=== PATIENT | male | born 1980 | race Caucasian/White ===

== ENCOUNTER 2024-05-03 00:59 | Emergency (ER) | payer MEDICAID, SELFPAY ==
[2024-05-03 01:18] VITALS: BP 133/77; PULSE 83; RESP 18; TEMP 36.9; O2SAT 99; BMI 23.8
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
[2024-05-03] MEDS: ACETAMINOPHEN 500 MG TABLET 1000 MG PO (01:31)
[2024-05-03 01:36] LABS: Collection Type, Urine Clean Catch
[2024-05-03 01:45] LABS: Bilirubin,Urine Negative (Negative); Blood,Urine Negative (Negative); Clarity,Urine Clear (Clear/Hazy); Color,Urine Lt-Yellow (Lt Yel-Yel); Glucose, Urine Negative (Negative); Ketones,Urine Negative (Negative); Leukocyte Esterase,Urine Negative (Negative); Nitrite,Urine Negative (Negative); PH,Urine 5.5 (5.0-7.0); Protein,Urine Negative (Neg - Trace); RBC,Urine 1 /hpf (0-3); Squamous Epithelial Cell,Urine < 1 /hpf (0-5); WBC,Urine 1 /hpf (0-5)
== END 2024-05-03 02:11 | disposition home or self-care (01) ==
PROVIDERS: Physician Assistant; Emergency Provider Emergency Medicine; PCP Internal Medicine
DX: R10.9 Unspecified abdominal pain (principal)
CPT/HCPCS: 81001; 99283; A9270

== ENCOUNTER 2024-05-06 19:32 | Emergency (ER) | payer MEDICAID, SELFPAY ==
[2024-05-06 19:32] VITALS: BP 141/88; PULSE 86; RESP 20; TEMP 36.9; O2SAT 97; BMI 21.6
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
--- NOTE | 2024-05-06 21:48 | PC.NURSE ---
LEFT WITHOUT INSTRUCTION.
== END 2024-05-06 21:48 | disposition home or self-care (01) ==
PROVIDERS: Emergency Provider Emergency Medicine; PCP Internal Medicine
DX: S00.83XA Contusion of other part of head, initial encounter (principal); Y04.0XXA Assault by unarmed brawl or fight, initial encounter
CPT/HCPCS: 70100; 99283

== ENCOUNTER 2024-05-07 07:18 | Emergency (ER) | payer MEDICAID, SELFPAY ==
[2024-05-07 07:21] VITALS: BMI 22.4
[2024-05-07 07:29] VITALS: BP 135/79; PULSE 75; RESP 18; TEMP 36.4; O2SAT 98; BMI 20.6
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
== END 2024-05-07 07:51 | disposition home or self-care (01) ==
LOC: SERX 07:57
PROVIDERS: Emergency Provider Emergency Medicine; PCP Internal Medicine
DX: S00.83XA Contusion of other part of head, initial encounter (principal); Z59.00 Homelessness unspecified; Y09 Assault by unspecified means
CPT/HCPCS: 99281

== ENCOUNTER 2024-05-09 15:23 | Emergency (ER) | payer MEDICAID, SELFPAY ==
[2024-05-09 15:29] VITALS: BP 145/89; PULSE 92; RESP 18; TEMP 37.2; O2SAT 96; BMI 22.4
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
[2024-05-09] MEDS: ACETAMINOPHEN 500 MG TABLET 1000 MG PO (16:07)
== END 2024-05-09 16:30 | disposition home or self-care (01) ==
PROVIDERS: Emergency Provider Emergency Medicine
DX: S09.90XA Unspecified injury of head, initial encounter (principal); Y09 Assault by unspecified means; Z59.00 Homelessness unspecified
CPT/HCPCS: 99282; A9270

== ENCOUNTER 2024-05-13 07:17 | Emergency (ER) | payer MEDICAID, SELFPAY ==
[2024-05-13 07:17] VITALS: BMI 23.3
[2024-05-13 07:30] VITALS: BP 151/87; PULSE 75; RESP 18; TEMP 36.5; O2SAT 100
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
[2024-05-13] MEDS: ACETAMINOPHEN 500 MG TABLET 1000 MG PO (07:51)
== END 2024-05-13 07:54 | disposition home or self-care (01) ==
LOC: SERX 07:49
PROVIDERS: Emergency Provider Emergency Medicine; PCP Internal Medicine
DX: K08.89 Other specified disorders of teeth and supporting structures (principal); Z59.00 Homelessness unspecified
CPT/HCPCS: 99282; A9270

== ENCOUNTER 2024-05-17 18:08 | Emergency (ER) | payer MEDICAID, SELFPAY ==
[2024-05-17 18:09] VITALS: BMI 25.0
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
[2024-05-17 18:47] VITALS: BP 129/74; PULSE 79; RESP 18; TEMP 37.1; O2SAT 98
[2024-05-17] MEDS: ACETAMINOPHEN 500 MG TABLET 1000 MG PO (19:46)
== END 2024-05-17 19:49 | disposition home or self-care (01) ==
PROVIDERS: Emergency Provider Emergency Medicine
DX: S09.90XA Unspecified injury of head, initial encounter (principal); W22.09XA Striking against other stationary object, initial encounter; Z59.00 Homelessness unspecified
CPT/HCPCS: 99282; A9270

== ENCOUNTER 2024-05-20 17:08 | Emergency (ER) | payer MEDICAID, SELFPAY ==
[2024-05-20 17:33] VITALS: BP 149/88; PULSE 97; RESP 20; TEMP 36.9; O2SAT 96
--- NOTE | 2024-05-20 17:35 | PD.EDDENTL ---
ED Dental RME/HPI General Chief complaint: Dental/Oral/Throat Stated complaint: JAW PAIN Time Seen by Provider: 05/20/24 17:24 Arrival date/time: 05/20/24 17:08 43-year-old male presents emergency department with complaints of left-sided jaw swelling and jaw pain patient reports recent injury patient has had imaging of his face since then patient reports being homeless Limitations: no limitations Related Data Home Medications ?Medication ?Instructions ?Recorded ?Confirmed quetiapine 50 mg tablet (Seroquel) 50 mg PO HS 10/23/19 06/20/22 divalproex 500 mg tablet,extended 2,000 mg PO DAILY 06/20/22 06/20/22 release 24 hr Previous Rx's ?Medication ?Instructions ?Recorded azithromycin 500 mg tablet See Rx Instructions PO .COMPLEX #6 08/11/22 tabs acetaminophen 500 mg capsule 1,000 mg (2 x 500 mg) PO Q8HR PRN 11/29/22 pain #30 caps meloxicam 7.5 mg tablet 7.5 mg PO QDAY #7 tabs 12/12/22 phenazopyridine 100 mg tablet 100 mg PO TID #6 tabs 12/12/22 (Pyridium) acetaminophen 325 mg tablet (Pain 325 mg PO QID PRN pain #14 tabs 12/08/23 Reliever (acetaminophen)) acetaminophen 500 mg tablet 1,000 mg (2 x 500 mg) PO Q6H PRN 05/03/24 (Tylenol Extra Strength) pain #30 tabs acetaminophen 325 mg capsule 650 mg (2 x 325 mg) PO QID PRN 05/17/24 fever or pain 7 days #30 caps amoxicillin 875 mg-potassium 1 tab PO BID 7 days #14 tabs 05/20/24 clavulanate 125 mg tablet Allergies Allergy/AdvReac Type Severity Reaction Status Date / Time naproxen Allergy Severe HIVES Verified 05/13/24 07:19 ibuprofen AdvReac Severe ULCER Verified 05/13/24 07:19 BLEEDS tramadol HCl AdvReac Severe UNABLE TO Verified 05/13/24 07:19 URINATE Review of Systems Review of Systems Systems Reviewed: All systems reviewed, normal except as documented Constitutional Constitutional: Reports system reviewed and no additional complaints, except as documented, Denies fever(s) and Denies headache(s) Eyes Eyes: Reports system reviewed and no additional complaints, except as documented and Denies blurry vision ENT Ears, Nose, Mouth, and Throat: Reports system reviewed and no additional complaints, except as documented, Reports facial pain, Denies headache(s), Denies nasal congestion and Denies nasal discharge Cardiovascular Cardiovascular: Reports system reviewed and no additional complaints, except as documented, Denies chest pain and Denies dyspnea Respiratory Respiratory: Reports system reviewed and no additional complaints, except as documented, Denies chest congestion, Denies cough and Denies dyspnea Gastrointestinal Gastrointestinal: Reports system reviewed and no additional complaints, except as documented and Denies abdominal pain Integumentary/Breasts Skin/Breast: Reports system reviewed and no additional complaints, except as documented and Denies rash Neurologic Neurologic: Reports system reviewed and no additional complaints, except as documented, Reports as per HPI and Denies headache(s) Past Medical History Past Medical History NEUROLOGIC: Negative Neurological Disorders CARDIAC: Negative Cardiac Disorders ED Exam General Limitations: Present no limitations General appearance: Present alert and in no apparent distress Head Head exam: Present atraumatic, normocephalic and normal inspection Eye Eye exam: Present normal appearance, PERRL and EOMI ENT ENT exam: Present mucous membranes moist and other (Left-sided jaw pain no difficulty swallowing or breathing) Neck Neck exam: Present normal inspection, full ROM and trachea midline Chest Chest inspection: Present normal inspection and symmetric chest wall rise Respiratory Respiratory exam: Present normal lung sounds bilaterally Cardiovascular Cardiovascular exam: Present regular rate, normal rhythm and normal heart sounds Abdominal Exam Abdominal exam: Present soft and normal bowel sounds Extremities Exam Extremities exam: Present normal inspection and full ROM Back Exam Back exam: Present normal inspection and full ROM Neurological Exam Neurological exam: Present alert, oriented X3 and CN II-XII intact Psychiatric Psychiatric exam: Present normal affect and normal mood Skin Skin exam: Present warm, dry, intact and normal color Course Quality Measures none Vital Signs Vital signs: Vital Signs Temperature 98.5 F 05/20/24 17:33 Pulse Rate 97 05/20/24 17:33 Respiratory Rate 20 05/20/24 17:33 Blood Pressure 149/88 H 05/20/24 17:33 Pulse Oximetry (%) 96 05/20/24 17:33 Oxygen Delivery Method Room Air 05/20/24 17:33 O2 saturation 96% room air within the limits Dental / Oral MDM Narrative MDM Narrative:: 43-year-old male presents emergency department with complaints of left-sided jaw swelling and jaw pain patient reports recent injury patient has had imaging of his face since then patient reports being homeless On exam patient does not appear ill or toxic in no acute distress Patient does have some gingival swelling on the left lower side with swelling of the jaw Patient with course of antibiotics and pain medication Patient discharged home in no distress to follow-up with primary care doctor in the next 24 to 48 hours and for any worsening symptoms to return to the ER immediately Patient data External records reviewed:: [facility] previous records Clinical information provided by:: patient Social determinants that could affect healthcare access:: housing Patient has the following chronic illnesses:: Housing How is presenting disease/condition affected by chronic disease/condition?: exacerbated by Evaluation data The following diagnostics were reviewed and interpreted by me:: other (specify) (N/A) Lab and/or radiology exams considered but not ordered:: Consider not ordered Interpretation Summary: N/A Medications / Prescriptions Medications or Prescriptions considered but not ordered:: Given Medication administrations:: Given Consultations Consultation(s) initiated? (list below): No Diagnosis Dental Differential Diagnosis: gingival abscess, dental caries, toothache and dental abscess Most likely diagnosis given after review of the tests above:: Dental abscess Admission Indicated Admission indicated?: not indicated Admission Request Was there a request for admission?: No Disposition Plan Disposition Plan: Discharge Discharge Attestation Discharge Attestation: The patient and all family members were given an opportunity to ask questions and understood the discharge instructions. Discharge instructions specifically effects, indications for sooner follow up or return to the emergency department, and the expected course of current diagnosis. Patient condition: Stable Discharge Plan Plan Patient Disposition: HOME (Self Care) Disposition Comment: Stable Prescriptions/Referrals Prescriptions/Med Rec: New amoxicillin-pot clavulanate 875-125 mg tablet 1 tab PO BID 7 Days Qty: 14 0RF No Action quetiapine [Seroquel] 50 mg Tablet 50 mg PO HS azithromycin 500 mg tablet See Rx Instructions .ROUTE .COMPLEX Qty: 6 0RF Rx Instructions: take 500 mg today (day 1), then 250 mg for 4 days (days 2-5) acetaminophen 500 mg capsule 1,000 mg PO Q8HR PRN (Reason: pain) Qty: 30 0RF phenazopyridine [Pyridium] 100 mg tablet 100 mg PO TID Qty: 6 0RF meloxicam 7.5 mg tablet 7.5 mg PO QDAY Qty: 7 0RF acetaminophen [Pain Reliever (acetaminophen)] 325 mg tablet 325 mg PO QID PRN (Reason: pain) Qty: 14 0RF acetaminophen 325 mg capsule 650 mg PO QID PRN (Reason: fever or pain) 7 Days Qty: 30 0RF divalproex 500 mg tablet extended release 24 hr 2,000 mg PO DAILY Patient Comments: TAKE 4 TABLETS BY MOUTH AT BEDTIME FOR FOURTEEN DAYS acetaminophen [Tylenol Extra Strength] 500 mg tablet 1,000 mg PO Q6H PRN (Reason: pain) Qty: 30 0RF Problem List Clinical Impression: Jaw pain Patient/Caregiver Discharge Instructions Education Materials: ED Dental Pain Additional Instructions: Please follow up with your primary care doctor in the next 24-48hrs for any worsening symptoms return here immediately Print Language: Cameroonian Stand Alone Forms: Paola Award Info., Patient Portal Info Letter PA/LUI Supervising Physician PA/LUI Supervising Physician: Dr. Amanda
== END 2024-05-20 18:00 | disposition home or self-care (01) ==
PROVIDERS: Emergency Provider Emergency Medicine
DX: R68.84 Jaw pain (principal)
CPT/HCPCS: 99281

== ENCOUNTER 2024-08-18 13:33 | Emergency (ER) | payer MEDICAID, SELFPAY ==
--- NOTE | 2024-08-18 14:07 | PD.EDUPEX ---
Upper Extremity Injury RME/HPI General Chief Complaint: Extremity Injury, Upper Stated Complaint: THINKS L) ELBOW HYPEREXTENDED; WANTS IT CHECKED Time Seen by Provider: 08/18/24 14:04 Arrival date/time: 08/18/24 13:33 RME / HPI RME / HPI narrative: DR. CHISHOLM MAIN ED EVALUATION: 43 year old male presents to the Emergency Department with complaint of left elbow pain, he states he might have hyperextended it 2 weeks ago. No fall or injury reported. No other symptoms reported. Related Data Home Medications ?Medication ?Instructions ?Recorded ?Confirmed quetiapine 50 mg tablet (Seroquel) 50 mg PO HS 10/23/19 06/20/22 divalproex 500 mg tablet,extended 2,000 mg PO DAILY 06/20/22 06/20/22 release 24 hr Previous Rx's ?Medication ?Instructions ?Recorded azithromycin 500 mg tablet See Rx Instructions PO .COMPLEX #6 08/11/22 tabs acetaminophen 500 mg capsule 1,000 mg (2 x 500 mg) PO Q8HR PRN 11/29/22 pain #30 caps meloxicam 7.5 mg tablet 7.5 mg PO QDAY #7 tabs 12/12/22 phenazopyridine 100 mg tablet 100 mg PO TID #6 tabs 12/12/22 (Pyridium) acetaminophen 325 mg tablet (Pain 325 mg PO QID PRN pain #14 tabs 12/08/23 Reliever (acetaminophen)) acetaminophen 500 mg tablet 1,000 mg (2 x 500 mg) PO Q6H PRN 05/03/24 (Tylenol Extra Strength) pain #30 tabs Allergies Allergy/AdvReac Type Severity Reaction Status Date / Time naproxen Allergy Severe HIVES Verified 08/18/24 13:36 ibuprofen AdvReac Severe ULCER Verified 08/18/24 13:36 BLEEDS tramadol HCl AdvReac Severe UNABLE TO Verified 08/18/24 13:36 URINATE Review of Systems Review of Systems Systems Reviewed: All systems reviewed, normal except as documented Narrative Review of Systems: GEN: No fever, no chills, no weight loss EYES: No discharge, no visual changes, no pain HEENT: No ear pain, no congestion, no sore throat PULM: No shortness of breath, no cough, no congestion CV: No chest pain, no dyspnea on exertion, no palpitations GI: No nausea, no vomiting, no diarrhea, no pain, no constipation : No frequency, no urgency and no dysuria MUSC/SKEL: + left elbow pain, no back pain SKIN: No rash PSYCH: No hallucinations, no depression HEME/LYMPH: No easy bleeding or bruising tendencies NEURO: No weakness, no headache Past Medical History Past Medical History CARDIAC: Positive Hypertension GASTROINTESTINAL: Positive Gastrointestinal Disorders and Ulcer GENITOURINARY: Positive Genitourinary Disorders PSYCHO/SOCIAL: Positive Bipolar Disorder Social History SMOKING STATUS: Current every day smoker SUBSTANCE USE: marijuana ALCOHOL: Never ED Exam Narrative Physical exam: GENERAL APPEARANCE: alert and oriented x 4, well-developed, well-nourished, no acute distress VITALS: All vitals were reviewed and the pulse ox is 95% on room air, which is normal according to my interpretation. HEENT: Normocephalic, atraumatic; pupils equal, round, reactive to light; EOMI; mucous membranes pink, moist; oropharynx clear NECK: Supple LUNGS: CTABL; no wheezes, no rales, no rhonchi HEART: Regular rate, regular rhythm; normal S1, S2; no murmurs ABDOMEN: non distended; normal BS; soft, no tenderness, no guarding, no rebound; no masses, no organomegaly, no hernia BACK: no CVA tenderness EXTREMITIES: atraumatic; no edema NEUROLOGIC: awake; alert and oriented x4; cranial nerves II-XII grossly intact; no focal sensory or motor deficits PSYCHIATRIC: appropriate mood and affect SKIN: warm, dry, normal color; no rashes Course Quality Measures none Orders Category Date Time Status Acetaminophen Tab [Tylenol ES Tab] Med 08/18/24 14:07 Discontinued 1,000 mg PO X1 ONE Vital Signs Vital signs: Vital Signs Temperature 98.6 F 08/18/24 14:10 Pulse Rate 106 H 08/18/24 14:10 Respiratory Rate 20 08/18/24 14:10 Blood Pressure 149/86 H 08/18/24 14:10 Pulse Oximetry (%) 95 08/18/24 14:10 Oxygen Delivery Method Room Air 08/18/24 14:10 Extremity Injury MDM Narrative MDM Narrative:: Manda Scott am scribing for and in the presence of Dr. Chisholm. Patient data External records reviewed:: [facility] previous records (Reviewed last ED visit dated 05/20/24, discharged with the following: Jaw pain) Clinical information provided by:: patient Social determinants that could affect healthcare access:: housing (homeless) Patient has the following chronic illnesses:: Hypertension, bipolar disorder How is presenting disease/condition affected by chronic disease/condition?: uneffected by Evaluation data The following diagnostics were reviewed and interpreted by me:: other (specify) (none) Lab and/or radiology exams considered but not ordered:: none Interpretation Summary: n/a Medications / Prescriptions Medications or Prescriptions considered but not ordered:: none Medication administrations:: Medication Administration History Discontinued Medications Acetaminophen (Acetaminophen 500 Mg Tablet) 1,000 mg PO X1 ONE Stop: 08/18/24 14:08 Last Admin: 08/18/24 14:39 Dose: 1,000 mg Documented By: KINZA see above Consultations Consultation(s) initiated? (list below): No Diagnosis Upper Extremity Injury Differential Diagnosis: other (left elbow pain, tendonitis, bursitis) Most likely diagnosis given after review of the tests above:: Left elbow pain Admission Indicated Admission indicated?: not indicated Admission Request Was there a request for admission?: No Disposition Plan Disposition Plan: Discharge Discharge Attestation Discharge Attestation: The patient and all family members were given an opportunity to ask questions and understood the discharge instructions. Discharge instructions specifically effects, indications for sooner follow up or return to the emergency department, and the expected course of current diagnosis. Patient condition: Stable Discharge Plan Plan Patient Disposition: HOME (Self Care) Prescriptions/Referrals Prescriptions/Med Rec: No Action quetiapine [Seroquel] 50 mg Tablet 50 mg PO HS azithromycin 500 mg tablet See Rx Instructions .ROUTE .COMPLEX Qty: 6 0RF Rx Instructions: take 500 mg today (day 1), then 250 mg for 4 days (days 2-5) acetaminophen 500 mg capsule 1,000 mg PO Q8HR PRN (Reason: pain) Qty: 30 0RF phenazopyridine [Pyridium] 100 mg tablet 100 mg PO TID Qty: 6 0RF meloxicam 7.5 mg tablet 7.5 mg PO QDAY Qty: 7 0RF acetaminophen [Pain Reliever (acetaminophen)] 325 mg tablet 325 mg PO QID PRN (Reason: pain) Qty: 14 0RF divalproex 500 mg tablet extended release 24 hr 2,000 mg PO DAILY Patient Comments: TAKE 4 TABLETS BY MOUTH AT BEDTIME FOR FOURTEEN DAYS acetaminophen [Tylenol Extra Strength] 500 mg tablet 1,000 mg PO Q6H PRN (Reason: pain) Qty: 30 0RF Problem List Clinical Impression: Left elbow pain Patient/Caregiver Discharge Instructions Education Materials: ED Sprain, Elbow Print Language: Tajik Stand Alone Forms: [facility] Award Info., Patient Portal Info Letter
[2024-08-18 14:10] VITALS: BP 149/86; PULSE 106; RESP 20; TEMP 37; O2SAT 95
[2024-08-18] MEDS: ACETAMINOPHEN 500 MG TABLET 1000 MG PO (14:39)
== END 2024-08-18 14:42 | disposition home or self-care (01) ==
LOC: SERX 14:45
PROVIDERS: Emergency Provider Emergency Medicine
DX: M25.522 Pain in left elbow (principal)
CPT/HCPCS: 99282; A9270

== ENCOUNTER 2024-09-13 13:26 | Emergency (ER) | payer MEDICAID, SELFPAY ==
--- NOTE | 2024-09-13 14:43 | PD.EDRME ---
Rapid Medical Screening Exam RME Arrival date/time: 09/13/24 13:26 Chief Complaint: Headache Time Seen by Provider: 09/13/24 13:32 RME Narrative: 43-year-old male patient came in for evaluation regarding headache has been ongoing for several days. Denies fever denies trauma denies upper or lower extremity weakness denies large denies any other complaints
--- NOTE | 2024-09-13 14:49 | PC.NURSE ---
PT ENTERED IN THE SYSTEM BUT RN WAS IN THE MIDDLE OF ASKING PT TRIAGE QUESTION, PT LEFT. PT UNABLE TO ASK PT FOR REASON FOR LEAVING. PT LEFT BEFORE TRIAGE COMPLETE. PT LEFT BEFORE MSE.
== END 2024-09-13 18:27 | disposition left against medical advice (07) ==
PROVIDERS: Emergency Provider Family Medicine
DX: Z53.21 Procedure and treatment not carried out due to patient leaving prior to being seen by health care provider (principal)

== ENCOUNTER 2024-09-16 07:13 | Emergency (ER) | payer MEDICAID, SELFPAY ==
[2024-09-16 07:23] VITALS: BP 126/84; PULSE 67; RESP 18; TEMP 36.7; O2SAT 100; BMI 22.9
--- NOTE | 2024-09-16 07:28 | PD.EDEXREM ---
ED Extremity Problem RME/HPI General Chief complaint: Extremity Problem,Nontraumatic Stated complaint: LEFT ARM PAIN X 10 DAYS, HYPEREXTENDED Time Seen by Provider: 09/16/24 07:15 Arrival date/time: 09/16/24 07:13 43-year-old male presents emergency department today for complaint of left elbow pain patient been here multiple times for the same patient reports that he hyperextended his elbow about a month ago. Patient requesting a Tylenol pill and discharged home with Tylenol Limitations: no limitations Related Data Home Medications ?Medication ?Instructions ?Recorded ?Confirmed quetiapine 50 mg tablet (Seroquel) 50 mg PO HS 10/23/19 06/20/22 divalproex 500 mg tablet,extended 2,000 mg PO DAILY 06/20/22 06/20/22 release 24 hr Previous Rx's ?Medication ?Instructions ?Recorded azithromycin 500 mg tablet See Rx Instructions PO .COMPLEX #6 08/11/22 tabs acetaminophen 500 mg capsule 1,000 mg (2 x 500 mg) PO Q8HR PRN 11/29/22 pain #30 caps meloxicam 7.5 mg tablet 7.5 mg PO QDAY #7 tabs 12/12/22 phenazopyridine 100 mg tablet 100 mg PO TID #6 tabs 12/12/22 (Pyridium) acetaminophen 325 mg tablet (Pain 325 mg PO QID PRN pain #14 tabs 12/08/23 Reliever (acetaminophen)) acetaminophen 500 mg tablet 1,000 mg (2 x 500 mg) PO Q6H PRN 05/03/24 (Tylenol Extra Strength) pain #30 tabs acetaminophen 500 mg capsule 1,000 mg (2 x 500 mg) PO Q8HR PRN 09/16/24 pain #30 caps Allergies Allergy/AdvReac Type Severity Reaction Status Date / Time naproxen Allergy Severe HIVES Verified 09/16/24 07:16 ibuprofen AdvReac Severe ULCER Verified 09/16/24 07:16 BLEEDS tramadol HCl AdvReac Severe UNABLE TO Verified 09/16/24 07:16 URINATE Review of Systems Review of Systems Systems Reviewed: All systems reviewed, normal except as documented Constitutional Constitutional: Reports system reviewed and no additional complaints, except as documented, Denies fever(s) and Denies headache(s) Eyes Eyes: Reports system reviewed and no additional complaints, except as documented and Denies blurry vision ENT Ears, Nose, Mouth, and Throat: Reports system reviewed and no additional complaints, except as documented, Denies headache(s), Denies nasal congestion and Denies nasal discharge Cardiovascular Cardiovascular: Reports system reviewed and no additional complaints, except as documented, Denies chest pain and Denies dyspnea Respiratory Respiratory: Reports system reviewed and no additional complaints, except as documented, Denies chest congestion, Denies cough and Denies dyspnea Gastrointestinal Gastrointestinal: Reports system reviewed and no additional complaints, except as documented and Denies abdominal pain Musculoskeletal Musculoskeletal: Reports system reviewed and no additional complaints, except as documented, Denies deformity, Denies numbness, Reports stiffness and Denies tingling Integumentary/Breasts Skin/Breast: Reports system reviewed and no additional complaints, except as documented and Denies rash Neurologic Neurologic: Reports system reviewed and no additional complaints, except as documented, Reports as per HPI, Denies headache(s), Denies numbness and Denies tingling Past Medical History Past Medical History NEUROLOGIC: Negative Neurological Disorders CARDIAC: Positive Hypertension; Negative Cardiac Disorders or Congestive Heart Failure RESPIRATORY: Negative Chronic Obstructive Pulmonary Disease (COPD) GASTROINTESTINAL: Positive Gastrointestinal Disorders and Ulcer GENITOURINARY: Positive Genitourinary Disorders; Negative Renal Disease ENDOCRINE: Negative Diabetes Mellitus Type 1 or Diabetes Mellitus Type 2 PSYCHO/SOCIAL: Positive Bipolar Disorder Family History FAMILY HISTORY: Negative Family Cardiac Disorders Social History SMOKING STATUS: Heavy (> 1 pack/day) SUBSTANCE USE: marijuana ED Exam General Limitations: Present no limitations General appearance: Present alert and in no apparent distress Head Head exam: Present atraumatic Eye Eye exam: Present normal appearance, PERRL and EOMI ENT ENT exam: Present normal exam, normal oropharynx and mucous membranes moist Neck Neck exam: Present normal inspection, full ROM and trachea midline Chest Chest inspection: Present normal inspection and symmetric chest wall rise Respiratory Respiratory exam: Present normal lung sounds bilaterally Cardiovascular Cardiovascular exam: Present regular rate, normal rhythm and normal heart sounds Abdominal Exam Abdominal exam: Present soft and normal bowel sounds Extremities Exam Extremities exam: Present full ROM, tenderness and normal capillary refill; Absent joint swelling Back Exam Back exam: Present normal inspection and full ROM Neurological Exam Neurological exam: Present alert, oriented X3 and CN II-XII intact Psychiatric Psychiatric exam: Present normal affect and normal mood Skin Skin exam: Present warm, dry, intact and normal color Course Quality Measures none Orders Category Date Time Status Acetaminophen Tab [Tylenol ES Tab] Med 09/16/24 07:28 Discontinued 1,000 mg PO X1 ONE Vital Signs Vital signs: Vital Signs Temperature 98.1 F 09/16/24 07:23 Pulse Rate 67 09/16/24 07:23 Respiratory Rate 18 09/16/24 07:23 Blood Pressure 126/84 09/16/24 07:23 Pulse Oximetry (%) 100 09/16/24 07:23 Oxygen Delivery Method Room Air 09/16/24 07:23 O2 saturation 100% on room air with normal limits Extremity Problem MDM Narrative MDM Narrative:: 43-year-old male presents emergency department today for complaint of left elbow pain patient been here multiple times for the same patient reports that he hyperextended his elbow about a month ago. Patient requesting a Tylenol pill and discharged home with Tylenol On exam patient well-appearing patient does not appear ill or toxic in no acute distress patient does have full range of motion of the left elbow but reports pain with movement Patient discharged home in no distress to follow-up with primary care doctor in the next 24 to 48 hours and for any worsening symptoms to return to the ER immediately Patient data External records reviewed:: [facility] previous records Clinical information provided by:: patient Social determinants that could affect healthcare access:: none Patient has the following chronic illnesses:: None How is presenting disease/condition affected by chronic disease/condition?: no chronic disease Evaluation data The following diagnostics were reviewed and interpreted by me:: other (specify) (N/A) Lab and/or radiology exams considered but not ordered:: Consider not ordered Interpretation Summary: Knee Medications / Prescriptions Medications or Prescriptions considered but not ordered:: Given Medication administrations:: Medication Administration History Discontinued Medications Acetaminophen (Acetaminophen 500 Mg Tablet) 1,000 mg PO X1 ONE Stop: 09/16/24 07:29 Given Consultations Consultation(s) initiated? (list below): No Diagnosis Extremity Problem Differential Diagnosis: other Most likely diagnosis given after review of the tests above:: Elbow strain Admission Indicated Admission indicated?: not indicated Admission Request Was there a request for admission?: No Disposition Plan Disposition Plan: Discharge Discharge Attestation Discharge Attestation: The patient and all family members were given an opportunity to ask questions and understood the discharge instructions. Discharge instructions specifically effects, indications for sooner follow up or return to the emergency department, and the expected course of current diagnosis. Patient condition: Stable Discharge Plan Plan Patient Disposition: HOME (Self Care) Discharge Disposition comment: Stable Prescriptions/Referrals Prescriptions/Med Rec: New acetaminophen 500 mg capsule 1,000 mg PO Q8HR PRN (Reason: pain) Qty: 30 0RF No Action quetiapine [Seroquel] 50 mg Tablet 50 mg PO HS azithromycin 500 mg tablet See Rx Instructions .ROUTE .COMPLEX Qty: 6 0RF Rx Instructions: take 500 mg today (day 1), then 250 mg for 4 days (days 2-5) acetaminophen 500 mg capsule 1,000 mg PO Q8HR PRN (Reason: pain) Qty: 30 0RF phenazopyridine [Pyridium] 100 mg tablet 100 mg PO TID Qty: 6 0RF meloxicam 7.5 mg tablet 7.5 mg PO QDAY Qty: 7 0RF acetaminophen [Pain Reliever (acetaminophen)] 325 mg tablet 325 mg PO QID PRN (Reason: pain) Qty: 14 0RF divalproex 500 mg tablet extended release 24 hr 2,000 mg PO DAILY Patient Comments: TAKE 4 TABLETS BY MOUTH AT BEDTIME FOR FOURTEEN DAYS acetaminophen [Tylenol Extra Strength] 500 mg tablet 1,000 mg PO Q6H PRN (Reason: pain) Qty: 30 0RF Problem List Clinical Impression: Hyperextension injury of left elbow Patient/Caregiver Discharge Instructions Education Materials: ED Muscle Strain, Extremity Additional Instructions: Please follow up with your primary care doctor in the next 24-48hrs for any worsening symptoms return here immediately Print Language: Czech Stand Alone Forms: [facility] Award Info., Patient Portal Info Letter PA/RADIAL DRILL OPERATOR Supervising Physician PA/RADIAL DRILL OPERATOR Supervising Physician: Dr. phoenix
[2024-09-16] MEDS: ACETAMINOPHEN 500 MG TABLET 1000 MG PO (07:37)
== END 2024-09-16 08:47 | disposition home or self-care (01) ==
LOC: SERX 07:43
PROVIDERS: Emergency Provider Family Medicine
DX: S59.902A Unspecified injury of left elbow, initial encounter (principal); X50.9XXA Other and unspecified overexertion or strenuous movements or postures, initial encounter
CPT/HCPCS: 99282; A9270

== ENCOUNTER 2024-09-24 18:21 | Emergency (ER) | payer MEDICAID, SELFPAY ==
[2024-09-24 18:21] VITALS: BMI 23.3
[2024-09-24 19:01] VITALS: BP 118/73; PULSE 78; RESP 18; TEMP 36.9; O2SAT 99
[2024-09-24] MEDS: ACETAMINOPHEN 325 MG TABLET 650 MG PO (19:29)
[2024-09-24 19:30] LABS: Collection Type, Urine Clean Catch; Squamous Epithelial Cell,Urine 0 /hpf (0-5)
[2024-09-24 19:43] LABS: Bilirubin,Urine Negative (Negative); Blood,Urine Negative (Negative); Clarity,Urine Clear (Clear/Hazy); Color,Urine Lt-Yellow (Lt Yel-Yel); Glucose, Urine Negative (Negative); Ketones,Urine Negative (Negative); Leukocyte Esterase,Urine Negative (Negative); Nitrite,Urine Negative (Negative); Protein,Urine Negative (Neg - Trace); RBC,Urine 2 /hpf (0-3); Urobilinogen,Urine Negative mg/dL (0.0-1.0); WBC,Urine < 1 /hpf (0-5)
--- NOTE | 2024-09-24 19:53 | PD.EDRME ---
Rapid Medical Screening Exam RME Arrival date/time: 09/24/24 18:21 Chief Complaint: Urogenital-Male Time Seen by Provider: 09/24/24 19:06 Vital signs: Vital Signs Temperature 98.5 F 09/24/24 19:01 Pulse Rate 78 09/24/24 19:01 Respiratory Rate 18 09/24/24 19:01 Blood Pressure 118/73 09/24/24 19:01 Pulse Oximetry (%) 99 09/24/24 19:01 Oxygen Delivery Method Room Air 09/24/24 19:01 Vital signs reviewed by provider: Yes RME Narrative: 44-year-old male presents to the ED with a complaint of chronic left testicular pain from a known hydrocele. He states the pain has not changed in quality or character. He denies any fever or chills but has had some dysuria and urinary frequency. Denies any nausea or vomiting, diarrhea or abdominal pain.
[2024-09-25 10:52] LABS: Chlamydia trachomatis PCR Negative (Not Detect); Neisseria Gonorrhoeae DNA PCR Negative (Not Detect); Trichomonas Negative (Negative)
== END 2024-09-24 22:30 | disposition left against medical advice (07) ==
PROVIDERS: Physician Assistant; Emergency Provider Emergency Medicine
DX: N50.812 Left testicular pain (principal); Z53.29 Procedure and treatment not carried out because of patient's decision for other reasons
CPT/HCPCS: 81001; 87086; 87491; 87591; 87661; 99281; A9270

== ENCOUNTER 2024-09-25 00:49 | Emergency (ER) | payer MEDICAID, SELFPAY ==
[2024-09-25 00:51] VITALS: BMI 23.3
--- NOTE | 2024-09-25 01:30 | PC.NURSE ---
NO ANSWER AT ER LOBBY OR OUTSIDE ER TANVI BE SEEN.
--- NOTE | 2024-09-25 01:45 | PC.NURSE ---
NO ANSWER AT ER LOBBY OR OUTSIDE ER.
--- NOTE | 2024-09-25 02:00 | PC.NURSE ---
PT CALLED AT 0130, 0145, 0200 NO SHOW LWBS
== END 2024-09-25 02:04 | disposition left against medical advice (07) ==
LOC: SERX 02:31
PROVIDERS: Emergency Provider Emergency Medicine
DX: Z53.21 Procedure and treatment not carried out due to patient leaving prior to being seen by health care provider (principal)

== ENCOUNTER 2024-09-26 02:34 | Emergency (ER) | payer MEDICAID, SELFPAY ==
[2024-09-26 02:35] VITALS: BMI 23.3
[2024-09-26 03:33] VITALS: BP 111/63; PULSE 69; RESP 19; TEMP 37; O2SAT 98
[2024-09-26] MEDS: ACETAMINOPHEN 500 MG TABLET 1000 MG PO (04:56)
[2024-09-26 05:59] VITALS: BP 114/76; PULSE 70; RESP 18; TEMP 36.6; O2SAT 100
--- NOTE | 2024-09-26 06:06 | PD.EDHA ---
ED Headache RME/HPI General Chief Complaint: Headache Stated Complaint: MIGRAINE HEADACHE Time Seen by Provider: 09/26/24 03:47 Arrival date/time: 09/26/24 02:34 44M with history of homelessness, drug use, HTN, and migraines presents to ED with 1 day of CIFUENTES. Limitations: no limitations Related Data Home Medications ?Medication ?Instructions ?Recorded ?Confirmed quetiapine 50 mg tablet (Seroquel) 50 mg PO HS 10/23/19 06/20/22 divalproex 500 mg tablet,extended 2,000 mg PO DAILY 06/20/22 06/20/22 release 24 hr Previous Rx's ?Medication ?Instructions ?Recorded azithromycin 500 mg tablet See Rx Instructions PO .COMPLEX #6 08/11/22 tabs acetaminophen 500 mg capsule 1,000 mg (2 x 500 mg) PO Q8HR PRN 11/29/22 pain #30 caps meloxicam 7.5 mg tablet 7.5 mg PO QDAY #7 tabs 12/12/22 phenazopyridine 100 mg tablet 100 mg PO TID #6 tabs 12/12/22 (Pyridium) acetaminophen 325 mg tablet (Pain 325 mg PO QID PRN pain #14 tabs 12/08/23 Reliever (acetaminophen)) acetaminophen 500 mg tablet 1,000 mg (2 x 500 mg) PO Q6H PRN 05/03/24 (Tylenol Extra Strength) pain #30 tabs acetaminophen 500 mg capsule 1,000 mg (2 x 500 mg) PO Q8HR PRN 09/16/24 pain #30 caps Allergies Allergy/AdvReac Type Severity Reaction Status Date / Time naproxen Allergy Severe HIVES Verified 09/26/24 02:35 latex Allergy Verified 09/26/24 02:35 ibuprofen AdvReac Severe ULCER Verified 09/26/24 02:35 BLEEDS tramadol HCl AdvReac Severe UNABLE TO Verified 09/26/24 02:35 URINATE Review of Systems Review of Systems Systems Reviewed: All systems reviewed, normal except as documented Constitutional Constitutional: Reports system reviewed and no additional complaints, except as documented, Reports as per HPI, Denies fever(s) and Reports headache(s) ENT Ears, Nose, Mouth, and Throat: Denies disequilibrium and Reports headache(s) Cardiovascular Cardiovascular: Reports system reviewed and no additional complaints, except as documented, Denies chest pain and Denies dyspnea Respiratory Respiratory: Reports system reviewed and no additional complaints, except as documented, Denies cough and Denies dyspnea Gastrointestinal Gastrointestinal: Reports system reviewed and no additional complaints, except as documented, Denies abdominal pain, Denies nausea and Denies vomiting Neurologic Neurologic: Reports system reviewed and no additional complaints, except as documented, Denies confusion, Denies disequilibrium and Reports headache(s) Psychiatric Psychiatric: Denies confusion Past Medical History Past Medical History NEUROLOGIC: Negative Neurological Disorders CARDIAC: Positive Hypertension; Negative Cardiac Disorders or Congestive Heart Failure RESPIRATORY: Negative Chronic Obstructive Pulmonary Disease (COPD) GASTROINTESTINAL: Positive Gastrointestinal Disorders and Ulcer GENITOURINARY: Positive Genitourinary Disorders; Negative Renal Disease ENDOCRINE: Negative Diabetes Mellitus Type 1 or Diabetes Mellitus Type 2 PSYCHO/SOCIAL: Positive Bipolar Disorder Family History FAMILY HISTORY: Negative Family Cardiac Disorders Social History SMOKING STATUS: Former smoker SUBSTANCE USE: marijuana ED Exam General Limitations: Present no limitations General appearance: Present alert and in no apparent distress Head Head exam: Present atraumatic Eye Eye exam: Present normal appearance, PERRL and EOMI ENT ENT exam: Present normal exam, normal oropharynx and mucous membranes moist Neck Neck exam: Present normal inspection, full ROM and trachea midline Chest Chest inspection: Present normal inspection and symmetric chest wall rise Respiratory Respiratory exam: Present normal lung sounds bilaterally Cardiovascular Cardiovascular exam: Present regular rate, normal rhythm and normal heart sounds Abdominal Exam Abdominal exam: Present soft and normal bowel sounds Extremities Exam Extremities exam: Present normal inspection and full ROM Back Exam Back exam: Present normal inspection and full ROM Neurological Exam Neurological exam: Present alert, oriented X3 and CN II-XII intact Psychiatric Psychiatric exam: Present normal affect and normal mood Skin Skin exam: Present warm, dry, intact and normal color Course Quality Measures none Orders Category Date Time Status Acetaminophen Tab [Tylenol ES Tab] Med 09/26/24 03:48 Discontinued 1,000 mg PO X1 ONE Vital Signs Vital signs: Vital Signs Temperature 98.6 F 09/26/24 03:33 Pulse Rate 69 09/26/24 03:33 Respiratory Rate 19 09/26/24 03:33 Blood Pressure 111/63 09/26/24 03:33 Pulse Oximetry (%) 98 09/26/24 03:33 Oxygen Delivery Method Room Air 09/26/24 03:33 O2 at 98% on RA and WNLs Headache MDM Narrative MDM Narrative:: 44M with history of homelessness, drug use, HTN, and migraines presents to ED with 1 day of CIFUENTES. Physical exam reveals normal pupil response and EOM. Gait normal. Speech normal. Patient is afebrile, calm, and alert. Tylenol improved symptoms. Patient data External records reviewed:: [facility] previous records Clinical information provided by:: patient Social determinants that could affect healthcare access:: mental health Patient has the following chronic illnesses:: homelessness, drug use, HTN, and migraines How is presenting disease/condition affected by chronic disease/condition?: exacerbated by Evaluation data The following diagnostics were reviewed and interpreted by me:: other (specify) (none) Lab and/or radiology exams considered but not ordered:: not ordered Interpretation Summary: n/a Medications / Prescriptions Medications or Prescriptions considered but not ordered:: ordered Medication administrations:: Medication Administration History Discontinued Medications Acetaminophen (Acetaminophen 500 Mg Tablet) 1,000 mg PO X1 ONE Stop: 09/26/24 03:49 Last Admin: 09/26/24 04:56 Dose: 1,000 mg Documented By: MC above Consultations Consultation(s) initiated? (list below): No Diagnosis Differential diagnosis headache: migraine, tension headache, subarachnoid hemorrhage, headache, meningitis, sinusitis and postconcussion syndrome Most likely diagnosis given after review of the tests above:: CIFUENTES Admission Indicated Admission indicated?: not indicated Admission Request Was there a request for admission?: No Disposition Plan Disposition Plan: Discharge Discharge Attestation Discharge Attestation: The patient and all family members were given an opportunity to ask questions and understood the discharge instructions. Discharge instructions specifically effects, indications for sooner follow up or return to the emergency department, and the expected course of current diagnosis. Patient condition: Stable Discharge Plan Plan Patient Disposition: HOME (Self Care) Discharge Disposition comment: Stable Prescriptions/Referrals Prescriptions/Med Rec: No Action quetiapine [Seroquel] 50 mg Tablet 50 mg PO HS azithromycin 500 mg tablet See Rx Instructions .ROUTE .COMPLEX Qty: 6 0RF Rx Instructions: take 500 mg today (day 1), then 250 mg for 4 days (days 2-5) acetaminophen 500 mg capsule 1,000 mg PO Q8HR PRN (Reason: pain) Qty: 30 0RF phenazopyridine [Pyridium] 100 mg tablet 100 mg PO TID Qty: 6 0RF meloxicam 7.5 mg tablet 7.5 mg PO QDAY Qty: 7 0RF acetaminophen [Pain Reliever (acetaminophen)] 325 mg tablet 325 mg PO QID PRN (Reason: pain) Qty: 14 0RF acetaminophen 500 mg capsule 1,000 mg PO Q8HR PRN (Reason: pain) Qty: 30 0RF divalproex 500 mg tablet extended release 24 hr 2,000 mg PO DAILY Patient Comments: TAKE 4 TABLETS BY MOUTH AT BEDTIME FOR FOURTEEN DAYS acetaminophen [Tylenol Extra Strength] 500 mg tablet 1,000 mg PO Q6H PRN (Reason: pain) Qty: 30 0RF Referrals: No Primary/Family,Physician [Primary Care Provider] - In 1 week Problem List Clinical Impression: Headache Patient/Caregiver Discharge Instructions Education Materials: Self-Care for Headaches Additional Instructions: Please follow-up with PCP within 24-48 hours and return immediately if symptoms worsen. Print Language: Guinean Stand Alone Forms: Patient Portal Info Letter FROYLAN/LUI Supervising Physician FROYLAN/LUI Supervising Physician: Dr. Ovalles
== END 2024-09-26 06:02 | disposition home or self-care (01) ==
PROVIDERS: Emergency Provider Emergency Medicine
DX: R51.9 Headache, unspecified (principal); I10 Essential (primary) hypertension
CPT/HCPCS: 99282; A9270

== ENCOUNTER 2024-09-30 15:34 | Emergency (ER) | payer MEDICAID, SELFPAY ==
[2024-09-30 15:35] VITALS: BMI 20.2
[2024-09-30 15:47] VITALS: BP 112/76; PULSE 81; RESP 18; TEMP 36.8; O2SAT 97
--- NOTE | 2024-09-30 15:57 | PD.EDANKLE ---
Lower Extremity Injury RME/HPI General Chief Complaint: Ankle/Foot Injury Stated Complaint: RT TOE PAIN Time Seen by Provider: 09/30/24 15:41 Source: patient Arrival date/time: 09/30/24 15:34 44-year-old male with no known medical history presents to the emergency room with a chief complaint of his nail in his right great toe partially falling off x 3 days. Mode of arrival: ambulatory Limitations: no limitations Related Data Home Medications ?Medication ?Instructions ?Recorded ?Confirmed quetiapine 50 mg tablet (Seroquel) 50 mg PO HS 10/23/19 06/20/22 divalproex 500 mg tablet,extended 2,000 mg PO DAILY 06/20/22 06/20/22 release 24 hr Previous Rx's ?Medication ?Instructions ?Recorded azithromycin 500 mg tablet See Rx Instructions PO .COMPLEX #6 08/11/22 tabs acetaminophen 500 mg capsule 1,000 mg (2 x 500 mg) PO Q8HR PRN 11/29/22 pain #30 caps meloxicam 7.5 mg tablet 7.5 mg PO QDAY #7 tabs 12/12/22 phenazopyridine 100 mg tablet 100 mg PO TID #6 tabs 12/12/22 (Pyridium) acetaminophen 325 mg tablet (Pain 325 mg PO QID PRN pain #14 tabs 12/08/23 Reliever (acetaminophen)) acetaminophen 500 mg tablet 1,000 mg (2 x 500 mg) PO Q6H PRN 05/03/24 (Tylenol Extra Strength) pain #30 tabs acetaminophen 500 mg capsule 1,000 mg (2 x 500 mg) PO Q8HR PRN 09/16/24 pain #30 caps Allergies Allergy/AdvReac Type Severity Reaction Status Date / Time naproxen Allergy Severe HIVES Verified 09/26/24 02:35 latex Allergy Verified 09/26/24 02:35 ibuprofen AdvReac Severe ULCER Verified 09/26/24 02:35 BLEEDS tramadol HCl AdvReac Severe UNABLE TO Verified 09/26/24 02:35 URINATE Review of Systems Review of Systems Systems Reviewed: All systems reviewed, normal except as documented Constitutional Constitutional: Reports system reviewed and no additional complaints, except as documented, Denies fatigue, Denies fever(s), Denies headache(s) and Denies weakness Eyes Eyes: Reports system reviewed and no additional complaints, except as documented, Denies blurry vision and Denies change in vision ENT Ears, Nose, Mouth, and Throat: Reports system reviewed and no additional complaints, except as documented, Denies otalgia, Denies headache(s), Denies nasal congestion, Denies throat swelling and Denies vertigo Cardiovascular Cardiovascular: Reports system reviewed and no additional complaints, except as documented, Denies chest pain, Denies dyspnea and Denies dyspnea on exertion Respiratory Respiratory: Reports system reviewed and no additional complaints, except as documented, Denies chest congestion, Denies cough, Denies dyspnea, Denies dyspnea on exertion and Denies wheezing Gastrointestinal Gastrointestinal: Reports system reviewed and no additional complaints, except as documented, Denies abdominal pain, Denies cramping, Denies nausea and Denies vomiting Genitourinary Genitourinary: Reports system reviewed and no additional complaints, except as documented, Denies dysuria and Denies hematuria Musculoskeletal Musculoskeletal: Reports system reviewed and no additional complaints, except as documented, Reports arthralgias and Denies back pain Integumentary/Breasts Skin/Breast: Reports system reviewed and no additional complaints, except as documented and Reports wounds Neurologic Neurologic: Reports system reviewed and no additional complaints, except as documented, Denies confusion, Denies headache(s), Denies lack of coordination, Denies vertigo and Denies weakness Psychiatric Psychiatric: Reports system reviewed and no additional complaints, except as documented, Denies anxiety, Denies confusion, Denies depression, Denies paranoia, Denies suicidal ideation and Denies tactile hallucinations Endocrine Endocrine: Reports system reviewed and no additional complaints, except as documented and Denies fatigue Hematologic/Lymphatic Hematologic/Lymphatic: Reports system reviewed and no additional complaints, except as documented and Denies lymphadenopathy Allergic/Immunologic Allergic/Immunologic: Reports system reviewed and no additional complaints, except as documented, Denies throat swelling, Denies urticaria and Denies wheezing ED Exam General Limitations: Present no limitations General appearance: Present alert and in no apparent distress Head Head exam: Present atraumatic Eye Eye exam: Present normal appearance, PERRL and EOMI ENT ENT exam: Present normal exam, normal oropharynx and mucous membranes moist Neck Neck exam: Present normal inspection, full ROM and trachea midline Chest Chest inspection: Present normal inspection and symmetric chest wall rise Respiratory Respiratory exam: Present normal lung sounds bilaterally Cardiovascular Cardiovascular exam: Present regular rate, normal rhythm and normal heart sounds Abdominal Exam Abdominal exam: Present soft and normal bowel sounds Extremities Exam Extremities exam: Present normal inspection and full ROM Expanded Lower Extremity Exam Hip/Pelvis exam: Present normal inspection Upper leg exam: Present normal inspection Knee exam: Present normal inspection Lower leg exam: Present normal inspection Ankle exam: Present normal inspection Foot/toe exam: Present normal inspection Top foot image:  1. Nail avulsion Gait: observed and limited by pain Back Exam Back exam: Present normal inspection and full ROM Neurological Exam Neurological exam: Present alert, oriented X3 and CN II-XII intact Psychiatric Psychiatric exam: Present normal affect and normal mood Skin Skin exam: Present warm, dry, intact and normal color Course Quality Measures none Orders Category Date Time Status Set Up Suture Tray STAT Care 09/30/24 15:59 Completed Wound Care NOW Care 09/30/24 15:59 Completed Lidocaine 1% 20 ml [Xylocaine 1% 20 ML] Med 09/30/24 15:59 Discontinued 20 ml INFL X1 ONE TET,DIP/PERT AC (Adult)-Tdap [Boostrix Adult (Tdap) Med 09/30/24 15:59 Discontinued Vacc] 0.5 ml IMI .ONCE ONE Vital Signs Vital signs: Vital Signs Temperature 98.2 F 09/30/24 15:47 Pulse Rate 81 09/30/24 15:47 Respiratory Rate 18 09/30/24 15:47 Blood Pressure 112/76 09/30/24 15:47 Pulse Oximetry (%) 97 09/30/24 15:47 Oxygen Delivery Method Room Air 09/30/24 15:47 O2 saturation 97% within normal limits Extremity Injury, Lower MDM Narrative MDM Narrative:: 44-year-old male with no known medical history presents to the emergency room with a chief complaint of his nail in his right great toe partially falling off x 3 days. Patient is hemodynamically stable and in no apparent distress. He is afebrile not tachycardic not tachypneic Physical examination shows an nail avulsion to the right great toe. The patient's nail is hanging on by within the left side. Patient states 3 days ago he stubbed his toe and is now been giving him problems ever since. A digital block with lidocaine was used on the great toe. The area was cleaned and prepped with Betadine. After the toe was completely numb the rest of the nail was removed with no complications. Triple antibiotic ointment was placed and a dressing was placed over the nailbed. Patient was educated to keep the area clean and dry. Patient was discharged and educated to follow-up with primary care provider in the next 24 to 48 hours and return to the emergency room for any evidence of worsening signs or symptoms Patient data External records reviewed:: [facility] previous records Clinical information provided by:: patient Social determinants that could affect healthcare access:: housing Patient has the following chronic illnesses:: No chronic illness How is presenting disease/condition affected by chronic disease/condition?: no chronic disease Evaluation data The following diagnostics were reviewed and interpreted by me:: lab results and radiology exam(s) Lab and/or radiology exams considered but not ordered:: Labs and radiology exams considered and ordered Interpretation Summary: N/A Medications / Prescriptions Medications or Prescriptions considered but not ordered:: Medication given Medication administrations:: Medication Administration History Discontinued Medications Diphtheria/Tetanus/Acell Pertussis (Diphth,Pertuss(Acell),Tet Vac 0.5 Ml Syr- Adult) 0.5 ml IMi .ONCE ONE Stop: 09/30/24 16:00 Last Admin: 09/30/24 17:05 Dose: Not Given Documented By: [facility] Non-Admin Reason: Patient Refused Comments: STATES ALREADY HAD DT THIS YEAR Lidocaine HCl (Lidocaine Hcl 1% 20 Ml Vial) 20 ml INFL X1 ONE Stop: 09/30/24 16:00 Last Admin: 09/30/24 17:05 Dose: 20 ml Documented By: [facility] Comments: USED BY PROVIDER Medication given Consultations Consultation(s) initiated? (list below): No Diagnosis Extremity Injury, Lower Differential Diagnosis: other (Nail avulsion/toe sprain/toe fracture) Most likely diagnosis given after review of the tests above:: Nail avulsion Admission Indicated Admission indicated?: not indicated Admission Request Was there a request for admission?: No Disposition Plan Disposition Plan: Discharge Discharge Attestation Discharge Attestation: The patient and all family members were given an opportunity to ask questions and understood the discharge instructions. Discharge instructions specifically effects, indications for sooner follow up or return to the emergency department, and the expected course of current diagnosis. Patient condition: Stable Discharge Plan Plan Patient Disposition: HOME (Self Care) Discharge Disposition comment: Stable Prescriptions/Referrals Prescriptions/Med Rec: No Action quetiapine [Seroquel] 50 mg Tablet 50 mg PO HS azithromycin 500 mg tablet See Rx Instructions .ROUTE .COMPLEX Qty: 6 0RF Rx Instructions: take 500 mg today (day 1), then 250 mg for 4 days (days 2-5) acetaminophen 500 mg capsule 1,000 mg PO Q8HR PRN (Reason: pain) Qty: 30 0RF phenazopyridine [Pyridium] 100 mg tablet 100 mg PO TID Qty: 6 0RF meloxicam 7.5 mg tablet 7.5 mg PO QDAY Qty: 7 0RF acetaminophen [Pain Reliever (acetaminophen)] 325 mg tablet 325 mg PO QID PRN (Reason: pain) Qty: 14 0RF acetaminophen 500 mg capsule 1,000 mg PO Q8HR PRN (Reason: pain) Qty: 30 0RF divalproex 500 mg tablet extended release 24 hr 2,000 mg PO DAILY Patient Comments: TAKE 4 TABLETS BY MOUTH AT BEDTIME FOR FOURTEEN DAYS acetaminophen [Tylenol Extra Strength] 500 mg tablet 1,000 mg PO Q6H PRN (Reason: pain) Qty: 30 0RF Problem List Clinical Impression: Avulsion of nail Patient/Caregiver Discharge Instructions Additional Instructions: Please follow-up with your primary care provider in the next 24 to 48 hours Your nail was removed and no complications. Please keep the area clean and dry for the next 24 hours afterwards you can clean it with soap and water For any evidence of worsening signs or symptoms return to the emergency room immediately Print Language: Syriac Stand Alone Forms: [place]ola Award Info., Patient Portal Info Letter Vaccines Vaccines Given During Stay: TDaP PA/[employer] Supervising Physician PA/[employer] Supervising Physician: Dr. Rosen
[2024-09-30] MEDS: LIDOCAINE HCL 1% 20 ML VIAL INFL (17:05)
== END 2024-09-30 17:16 | disposition home or self-care (01) ==
LOC: SERX 17:10
PROVIDERS: Emergency Provider Urology
DX: S91.201A Unspecified open wound of right great toe with damage to nail, initial encounter (principal); X58.XXXA Exposure to other specified factors, initial encounter
CPT/HCPCS: 11730; 99283; J3490

== ENCOUNTER 2024-10-07 20:57 | Emergency (ER) | payer MEDICAID, SELFPAY ==
[2024-10-07 20:57] VITALS: BMI 23.3
[2024-10-07 21:13] VITALS: BP 120/75; PULSE 92; RESP 18; TEMP 36.8; O2SAT 98
--- NOTE | 2024-10-07 21:30 | PD.EDLOWEX ---
Lower Extremity Injury RME/HPI General Chief Complaint: Extremity Injury, Lower Stated Complaint: R TOE PAIN Time Seen by Provider: 10/07/24 21:11 Arrival date/time: 10/07/24 20:57 RME / HPI RME / HPI Narrative: 44-year-old male presents to the ED with complaint of right great toe pain x 2 days. He was seen here last week for a toenail avulsion. He was doing okay until 2 days ago when he started having pain with walking. He has had a mild amount of drainage to the medial cuticle area of the right great toe. Denies fever chills, nausea or vomiting. He is requesting Tylenol or ibuprofen for pain. He denies being prescribed any antibiotics for the toenail avulsion. He is currently homeless and apologizes for the dirtiness of the toe. Related Data Home Medications ?Medication ?Instructions ?Recorded ?Confirmed quetiapine 50 mg tablet (Seroquel) 50 mg PO HS 10/23/19 06/20/22 divalproex 500 mg tablet,extended 2,000 mg PO DAILY 06/20/22 06/20/22 release 24 hr Previous Rx's ?Medication ?Instructions ?Recorded azithromycin 500 mg tablet See Rx Instructions PO .COMPLEX #6 08/11/22 tabs acetaminophen 500 mg capsule 1,000 mg (2 x 500 mg) PO Q8HR PRN 11/29/22 pain #30 caps meloxicam 7.5 mg tablet 7.5 mg PO QDAY #7 tabs 12/12/22 phenazopyridine 100 mg tablet 100 mg PO TID #6 tabs 12/12/22 (Pyridium) acetaminophen 325 mg tablet (Pain 325 mg PO QID PRN pain #14 tabs 12/08/23 Reliever (acetaminophen)) acetaminophen 500 mg tablet 1,000 mg (2 x 500 mg) PO Q6H PRN 05/03/24 (Tylenol Extra Strength) pain #30 tabs acetaminophen 500 mg capsule 1,000 mg (2 x 500 mg) PO Q8HR PRN 09/16/24 pain #30 caps acetaminophen 500 mg tablet 1,000 mg (2 x 500 mg) PO Q8HR PRN 10/07/24 pain #30 tabs cephalexin 500 mg capsule 500 mg PO BID Paronychia #14 caps 10/07/24 Allergies Allergy/AdvReac Type Severity Reaction Status Date / Time naproxen Allergy Severe HIVES Verified 10/07/24 20:59 latex Allergy Verified 10/07/24 20:59 ibuprofen AdvReac Severe ULCER Verified 10/07/24 20:59 BLEEDS tramadol HCl AdvReac Severe UNABLE TO Verified 10/07/24 20:59 URINATE Review of Systems Review of Systems Systems Reviewed: All systems reviewed, normal except as documented Past Medical History Past Medical History NEUROLOGIC: Negative Neurological Disorders CARDIAC: Positive Hypertension; Negative Cardiac Disorders or Congestive Heart Failure RESPIRATORY: Negative Chronic Obstructive Pulmonary Disease (COPD) GASTROINTESTINAL: Positive Gastrointestinal Disorders and Ulcer GENITOURINARY: Positive Genitourinary Disorders; Negative Renal Disease ENDOCRINE: Negative Diabetes Mellitus Type 1 or Diabetes Mellitus Type 2 PSYCHO/SOCIAL: Positive Bipolar Disorder Family History FAMILY HISTORY: Negative Family Cardiac Disorders Social History SMOKING STATUS: Heavy (> 1 pack/day) SUBSTANCE USE: marijuana ED Exam Narrative Physical exam: Alert 44-year-old male, afebrile and nontoxic-appearing, no acute distress. No respiratory distress. Right great toe with partially avulsed, healing nailbed. Medial cuticle area of right great toe with dried drainage. Tenderness noted to the same area. No significant erythema, warmth is noted. Course Course Course Narrative: 44-year-old male presents to the ED with complaint of right great toe pain x 2 days. He was seen here last week for a toenail avulsion. He was doing okay until 2 days ago when he started having pain with walking. He has had a mild amount of drainage to the medial cuticle area of the right great toe. Denies fever chills, nausea or vomiting. He is requesting Tylenol or ibuprofen for pain. He denies being prescribed any antibiotics for the toenail avulsion. He is currently homeless and apologizes for the dirtiness of the toe. Alert 44-year-old male, afebrile and nontoxic-appearing, no acute distress. No respiratory distress. Right great toe with partially avulsed, healing nailbed. Medial cuticle area of right great toe with dried drainage. Tenderness noted to the same area. No significant erythema, warmth is noted. The wound was cleansed. He was given Tylenol 1 g p.o. as well as Keflex 500 mg p.o. He will be discharged with prescription for Tylenol and Keflex. Quality Measures none Vital Signs Vital signs: Vital Signs Temperature 98.2 F 10/07/24 21:13 Pulse Rate 92 10/07/24 21:13 Respiratory Rate 18 10/07/24 21:13 Blood Pressure 120/75 10/07/24 21:13 Pulse Oximetry (%) 98 10/07/24 21:13 Oxygen Delivery Method Room Air 10/07/24 21:13 Extremity Injury, Lower MDM Narrative MDM Narrative:: 44-year-old male presents to the ED with complaint of right great toe pain x 2 days. He was seen here last week for a toenail avulsion. He was doing okay until 2 days ago when he started having pain with walking. He has had a mild amount of drainage to the medial cuticle area of the right great toe. Denies fever chills, nausea or vomiting. He is requesting Tylenol or ibuprofen for pain. He denies being prescribed any antibiotics for the toenail avulsion. He is currently homeless and apologizes for the dirtiness of the toe. Alert 44-year-old male, afebrile and nontoxic-appearing, no acute distress. No respiratory distress. Right great toe with partially avulsed, healing nailbed. Medial cuticle area of right great toe with dried drainage. Tenderness noted to the same area. No significant erythema, warmth is noted. The wound was cleansed. He was given Tylenol 1 g p.o. as well as Keflex 500 mg p.o. He will be discharged with prescription for Tylenol and Keflex. Patient data External records reviewed:: [facility] previous records Clinical information provided by:: patient Social determinants that could affect healthcare access:: housing Patient has the following chronic illnesses:: Elevated LFTs and anxiety. How is presenting disease/condition affected by chronic disease/condition?: uneffected by Evaluation data The following diagnostics were reviewed and interpreted by me:: other (specify) (N/A) Lab and/or radiology exams considered but not ordered:: N/A Interpretation Summary: N/A Medications / Prescriptions Medications or Prescriptions considered but not ordered:: N/A Medication administrations:: Tylenol 1 g and Keflex 500 mg p.o. Consultations Consultation(s) initiated? (list below): No Diagnosis Extremity Injury, Lower Differential Diagnosis: fracture of toe and other (Paronychia, toenail avulsion) Most likely diagnosis given after review of the tests above:: Paronychia secondary to toenail avulsion Admission Indicated Admission indicated?: not indicated Explain why admission is indicated or not indicated:: Patient is stable for discharge Admission Request Was there a request for admission?: No Admission Attestation Admission request attestation: N/A Disposition Plan Disposition Plan: Discharge Discharge Attestation Discharge Attestation: The patient and all family members were given an opportunity to ask questions and understood the discharge instructions. Discharge instructions specifically effects, indications for sooner follow up or return to the emergency department, and the expected course of current diagnosis. Patient condition: Stable Discharge Plan Plan Patient Disposition: HOME (Self Care) Discharge Disposition comment: Stable Prescriptions/Referrals Prescriptions/Med Rec: New cephalexin 500 mg capsule 500 mg PO BID Qty: 14 0RF acetaminophen 500 mg tablet 1,000 mg PO Q8HR PRN (Reason: pain) Qty: 30 0RF No Action quetiapine [Seroquel] 50 mg Tablet 50 mg PO HS azithromycin 500 mg tablet See Rx Instructions .ROUTE .COMPLEX Qty: 6 0RF Rx Instructions: take 500 mg today (day 1), then 250 mg for 4 days (days 2-5) acetaminophen 500 mg capsule 1,000 mg PO Q8HR PRN (Reason: pain) Qty: 30 0RF phenazopyridine [Pyridium] 100 mg tablet 100 mg PO TID Qty: 6 0RF meloxicam 7.5 mg tablet 7.5 mg PO QDAY Qty: 7 0RF acetaminophen [Pain Reliever (acetaminophen)] 325 mg tablet 325 mg PO QID PRN (Reason: pain) Qty: 14 0RF acetaminophen 500 mg capsule 1,000 mg PO Q8HR PRN (Reason: pain) Qty: 30 0RF divalproex 500 mg tablet extended release 24 hr 2,000 mg PO DAILY Patient Comments: TAKE 4 TABLETS BY MOUTH AT BEDTIME FOR FOURTEEN DAYS acetaminophen [Tylenol Extra Strength] 500 mg tablet 1,000 mg PO Q6H PRN (Reason: pain) Qty: 30 0RF Referrals: No Primary/Family,Physician [Primary Care Provider] - In 1 week Problem List Clinical Impression: Paronychia of great toe Patient/Caregiver Discharge Instructions Education Materials: ED Paronychia of the Finger or Toe Additional Instructions: Take the antibiotics as prescribed and complete the course even though you may be feeling better. Follow-up with your primary care physician in 24 to 48 hours. Return to the ED for any new or worsening symptoms. Print Language: Indian Stand Alone Forms: Paola Award Info., Patient Portal Info Letter PA/ASSEMBLY MACHINE TOOL SETTER Supervising Physician PA/ASSEMBLY MACHINE TOOL SETTER Supervising Physician: Dr. Fuller
== END 2024-10-07 22:50 | disposition home or self-care (01) ==
PROVIDERS: Emergency Provider Emergency Medicine
DX: L03.031 Cellulitis of right toe (principal)
CPT/HCPCS: 99282

== ENCOUNTER 2024-10-08 07:48 | Emergency (ER) | payer MEDICAID, SELFPAY ==
[2024-10-08 07:49] VITALS: BMI 23.3
--- NOTE | 2024-10-08 07:55 | EDNOTE_ITS ---
ED General RME/HPI General Chief complaint: General Adult/Misc Complain Stated complaint: GET PRESCRIPTIONS FROM YESTERDAY; ELOPED YESTERDAY Time Seen by Provider: 10/08/24 07:52 Arrival date/time: 10/08/24 07:48 44-year-old male presents to the Emergency Department due to requesting prescription for pain medication. Patient was evaluated yesterday left prior to final disposition Limitations: no limitations Related Data Home Medications ?Medication ?Instructions ?Recorded ?Confirmed quetiapine 50 mg tablet (Seroquel) 50 mg PO HS 0 06/20/22 divalproex 500 mg tablet,extended 2,000 mg PO DAILY 06/20/22 release 24 hr Previous Rx's ?Medication ?Instructions ?Recorded azithromycin 500 mg tablet See Rx Instructions PO .COM PLEX #6 08/11/22 tabs acetaminophen 500 mg tablet 1,000 mg (2 x 500 mg) PO Q 6H PRN 05/03/24 (Tylenol Extra Strength) pain #30 tabs acetaminophen 500 mg tablet 1,000 mg (2 x 500 mg) PO Q 8HR PRN 10/07/24 pain #30 tabs acetaminophen 500 mg capsule 1,000 mg (2 x 500 mg) PO Q8HR PRN 10/08/24 pain #30 caps bacitracin 500 unit/gram topical 1 applic topical TID 7 days #28.4 10/08/24 ointment grams cephalexin 500 mg capsule 500 mg PO BID 7 days #14 cap s 10/08/24 Allergies Allergy/AdvReac Type Severity Reaction Status Date / Time naproxen Allergy Severe HIVES Verified 10/08/24 07:51 latex Allergy Verified 10/08/24 07:51 ibuprofen AdvReac Severe ULCER Verified 10/08/24 07:51 BLEEDS tramadol HCl AdvReac Severe UNABLE TO Verified 10/08/24 07:51 URINATE Review of Systems Review of Systems Systems Reviewed: All systems reviewed, normal except as documented Constitutional Constitutional: Reports system reviewed and no additional complaints, except as documented, Denies fever(s) and Denies headache(s) Eyes Eyes: Reports system reviewed and no additional complaints, except as documented and Denies blurry vision ENT Ears, Nose, Mouth, and Throat: Reports system reviewed and no additional complaints, except as documented, Denies headache(s), Denies nasal congestion and Denies nasal discharge Cardiovascular Cardiovascular: Reports system reviewed and no additional complaints, except as documented, Denies chest pain and Denies dyspnea Respiratory Respiratory: Reports system reviewed and no additional complaints, except as documented, Denies chest congestion, Denies cough and Denies dyspnea Gastrointestinal Gastrointestinal: Reports system reviewed and no additional complaints, except as documented and Denies abdominal pain Integumentary/Breasts Skin/Breast: Reports system reviewed and no additional complaints, except as documented and Denies rash Neurologic Neurologic: Reports system reviewed and no additional complaints, except as documented, Reports as per HPI and Denies headache(s) Past Medical History Past Medical History NEUROLOGIC: Negative Neurological Disorders CARDIAC: Positive Hypertension; Negative Cardiac Disorders or Congestive Heart Failure RESPIRATORY: Negative Chronic Obstructive Pulmonary Disease (COPD) GASTROINTESTINAL: Positive Gastrointestinal Disorders and Ulcer GENITOURINARY: Positive Genitourinary Disorders; Negative Renal Disease ENDOCRINE: Negative Diabetes Mellitus Type 1 or Diabetes Mellitus Type 2 PSYCHO/SOCIAL: Positive Bipolar Disorder Family History FAMILY HISTORY: Negative Family Cardiac Disorders Social History SMOKING STATUS: Current every day smoker SUBSTANCE USE: marijuana ED Exam General Limitations: Present no limitations General appearance: Present alert and in no apparent distress Head Head exam: Present atraumatic Eye Eye exam: Present normal appearance, PERRL and EOMI ENT ENT exam: Present normal exam, normal oropharynx and mucous membranes moist Neck Neck exam: Present normal inspection, full ROM and trachea midline Chest Chest inspection: Present normal inspection and symmetric chest wall rise Respiratory Respiratory exam: Present normal lung sounds bilaterally Cardiovascular Cardiovascular exam: Present regular rate, normal rhythm and normal heart sounds Abdominal Exam Abdominal exam: Present soft and normal bowel sounds Extremities Exam Extremities exam: Present full ROM and tenderness (Right great toe nail removal with infection) Back Exam Back exam: Present normal inspection and full ROM Neurological Exam Neurological exam: Present alert, oriented X3 and CN II-XII intact Psychiatric Psychiatric exam: Present normal affect and normal mood Skin Skin exam: Present warm, dry and other (Right great toe nail removal with infection) Course Quality Measures none Vital Signs Vital signs: Vital Signs Temperature 98 F 10/08/24 07:56 Pulse Rate 99 10/08/24 07:56 Respiratory Rate 18 10/08/24 07:56 Blood Pressure 103/71 10/08/24 07:56 Pulse Oximetry (%) 99 10/08/24 07:56 Oxygen Delivery Method Room Air 10/08/24 07:56 O2 saturation 97% room air with normal limits Discharge Plan Plan Patient Disposition: HOME (Self Care) Discharge Disposition comment: Stable Prescriptions/Referrals Prescriptions/Med Rec: New bacitracin 500 unit/gram ointment 1 applic topical TID 7 Days Qty: 28.4 0RF cephalexin 500 mg capsule 500 mg PO BID 7 Days Qty: 14 0RF acetaminophen 500 mg capsule 1,000 mg PO Q8HR PRN (Reason: pain) Qty: 30 0RF Discontinued acetaminophen 500 mg capsule 1,000 mg PO Q8HR PRN (Reason: pain) Qty: 30 0RF phenazopyridine [Pyridium] 100 mg tablet 100 mg PO TID Qty: 6 0RF meloxicam 7.5 mg tablet 7.5 mg PO QDAY Qty: 7 0RF acetaminophen [Pain Reliever (acetaminophen)] 325 mg tablet 325 mg PO QID PRN (Reason: pain) Qty: 14 0RF acetaminophen 500 mg capsule 1,000 mg PO Q8HR PRN (Reason: pain) Qty: 30 0RF cephalexin 500 mg capsule 500 mg PO BID Qty: 14 0RF No Action quetiapine [Seroquel] 50 mg Tablet 50 mg PO HS azithromycin 500 mg tablet See Rx Instructions .ROUTE .COMPLEX Qty: 6 0RF Rx Instructions: take 500 mg today (day 1), then 250 mg for 4 days (days 2-5) divalproex 500 mg tablet extended release 24 hr 2,000 mg PO DAILY Patient Comments: TAKE 4 TABLETS BY MOUTH AT BEDTIME FOR FOURTEEN DAYS acetaminophen [Tylenol Extra Strength] 500 mg tablet 1,000 mg PO Q6H PRN (Reason: pain) Qty: 30 0RF acetaminophen 500 mg tablet 1,000 mg PO Q8HR PRN (Reason: pain) Qty: 30 0RF Problem List Clinical Impression: Infection of toe, Ingrowing toenail of right foot Patient/Caregiver Discharge Instructions Education Materials: ED Wound Check (Infection) Additional Instructions: Please follow up with your primary care doctor in the next 24-48hrs for any worsening symptoms return here immediately Print Language: Togolese Stand Alone Forms: Paola Award Info., Patient Portal Info Letter PA/AIR DEFENSE ARTILLERY OFFICER Supervising Physician PA/AIR DEFENSE ARTILLERY OFFICER Supervising Physician: Dr phoenix MDM Narrative MDM hospital course: 44-year-old male presents to the Emergency Department due to requesting prescription for pain medication. Patient was evaluated yesterday left prior to final disposition On exam patient well-appearing patient is not appear ill or toxic no acute distress On exam patient has what appears to be mild infection/ingrown toenail right great toe Patient will be treated with antibiotics Patient discharged home in no distress to follow-up with primary care doctor in the next 24 to 48 hours and for any worsening symptoms to return to the ER immediately Clinical Information Provided by none Medical Records Reviewed [facility] Meds/Rx Considered, not Ordered Describe details: Rx given Labs/Rad/Tests considered, not Ordered None Chronic Illness/Social Conditions which may negatively complicate care or outcome(s)-explain: Mental health EKG EKG not done Lab Interpretation Labs: none Imaging Imaging interpretation: none Medication Administration(s) none Diagnosis Differential diagnosis: Ingrown toenail, cellulitis, pain Most likely dx, and/or detailed dx discussion: Ingrown toenail Dispositon Disposition: Discharge Home
[2024-10-08 07:56] VITALS: BP 103/71; PULSE 99; RESP 18; TEMP 36.6; O2SAT 99
== END 2024-10-08 08:11 | disposition home or self-care (01) ==
LOC: SERX 08:12
PROVIDERS: Emergency Provider Family Medicine
DX: L60.0 Ingrowing nail (principal); L08.9 Local infection of the skin and subcutaneous tissue, unspecified
CPT/HCPCS: 99281

== ENCOUNTER 2024-10-24 16:37 | Emergency (ER) | payer MEDICAID, SELFPAY ==
[2024-10-24 16:38] VITALS: BMI 52.0
--- NOTE | 2024-10-24 17:51 | PC.NURSE ---
no answer when called for evaluation at [phone]
--- NOTE | 2024-10-24 18:22 | PC.NURSE ---
PATIENT SEEN WALKING OUT APPROX 10 MINUTES AFTER CHECKING IN.
== END 2024-10-24 19:52 | disposition left against medical advice (07) ==
LOC: SERX 18:33
PROVIDERS: Emergency Provider Family Medicine
DX: Z53.21 Procedure and treatment not carried out due to patient leaving prior to being seen by health care provider (principal)

== ENCOUNTER 2024-11-02 08:16 | Emergency (ER) | payer MEDICAID, SELFPAY ==
[2024-11-02 08:22] VITALS: BP 107/64; PULSE 89; RESP 18; TEMP 36.8; O2SAT 99; BMI 21.9
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
== END 2024-11-02 09:58 | disposition home or self-care (01) ==
PROVIDERS: Emergency Provider Family Medicine; PCP Internal Medicine
DX: S00.31XA Abrasion of nose, initial encounter (principal); S00.83XA Contusion of other part of head, initial encounter; Y04.0XXA Assault by unarmed brawl or fight, initial encounter; Z59.00 Homelessness unspecified
CPT/HCPCS: 70450; 70486; 99283

== ENCOUNTER 2024-11-16 16:49 | Emergency (ER) | payer MEDICAID, SELFPAY ==
[2024-11-16 16:50] VITALS: BMI 23.3
[2024-11-16 17:02] VITALS: BP 108/45; PULSE 69; RESP 20; TEMP 37.1; O2SAT 98
--- NOTE | 2024-11-16 17:06 | PD.EDEXREM ---
ED Extremity Problem RME/HPI General Chief complaint: Extremity Problem,Nontraumatic Stated complaint: LEFT ELBOW PAIN FOR 2 DAYS Time Seen by Provider: 11/16/24 16:55 Arrival date/time: 11/16/24 16:49 44-year-old male presents emergency department today with left elbow pain ongoing for the last few days patient reports he believes he may have hyperextended his left elbow. Patient denies any direct trauma Limitations: no limitations Related Data Home Medications ?Medication ?Instructions ?Recorded ?Confirmed quetiapine 50 mg tablet (Seroquel) 50 mg PO HS 10/23/19 06/20/22 divalproex 500 mg tablet,extended 2,000 mg PO DAILY 06/20/22 06/20/22 release 24 hr Previous Rx's ?Medication ?Instructions ?Recorded azithromycin 500 mg tablet See Rx Instructions PO .COMPLEX #6 08/11/22 tabs acetaminophen 500 mg tablet 1,000 mg (2 x 500 mg) PO Q6H PRN 05/03/24 (Tylenol Extra Strength) pain #30 tabs acetaminophen 500 mg tablet 1,000 mg (2 x 500 mg) PO Q8HR PRN 10/07/24 pain #30 tabs acetaminophen 500 mg capsule 1,000 mg (2 x 500 mg) PO Q8HR PRN 10/08/24 pain #30 caps acetaminophen 325 mg capsule 650 mg (2 x 325 mg) PO Q8HR PRN 11/02/24 pain #30 caps acetaminophen 500 mg capsule 1,000 mg (2 x 500 mg) PO Q8HR PRN 11/16/24 pain #30 caps Allergies Allergy/AdvReac Type Severity Reaction Status Date / Time naproxen Allergy Severe HIVES Verified 11/16/24 16:52 ibuprofen AdvReac Severe ULCER Verified 11/16/24 16:52 BLEEDS tramadol HCl AdvReac Severe UNABLE TO Verified 11/16/24 16:52 URINATE Review of Systems Review of Systems Systems Reviewed: All systems reviewed, normal except as documented Constitutional Constitutional: Reports system reviewed and no additional complaints, except as documented, Denies fever(s) and Denies headache(s) Eyes Eyes: Reports system reviewed and no additional complaints, except as documented and Denies blurry vision ENT Ears, Nose, Mouth, and Throat: Reports system reviewed and no additional complaints, except as documented, Denies headache(s), Denies nasal congestion and Denies nasal discharge Cardiovascular Cardiovascular: Reports system reviewed and no additional complaints, except as documented, Denies chest pain and Denies dyspnea Respiratory Respiratory: Reports system reviewed and no additional complaints, except as documented, Denies chest congestion, Denies cough and Denies dyspnea Gastrointestinal Gastrointestinal: Reports system reviewed and no additional complaints, except as documented and Denies abdominal pain Musculoskeletal Musculoskeletal: Reports system reviewed and no additional complaints, except as documented, Reports arthralgias, Denies deformity, Denies numbness, Reports stiffness and Denies tingling Integumentary/Breasts Skin/Breast: Reports system reviewed and no additional complaints, except as documented and Denies rash Neurologic Neurologic: Reports system reviewed and no additional complaints, except as documented, Reports as per HPI, Denies headache(s), Denies numbness and Denies tingling Past Medical History Past Medical History NEUROLOGIC: Negative Neurological Disorders CARDIAC: Positive Hypertension; Negative Cardiac Disorders or Congestive Heart Failure RESPIRATORY: Negative Chronic Obstructive Pulmonary Disease (COPD) GASTROINTESTINAL: Positive Gastrointestinal Disorders and Ulcer GENITOURINARY: Positive Genitourinary Disorders; Negative Renal Disease ENDOCRINE: Negative Diabetes Mellitus Type 1 or Diabetes Mellitus Type 2 PSYCHO/SOCIAL: Positive Bipolar Disorder Family History FAMILY HISTORY: Negative Family Cardiac Disorders Social History SMOKING STATUS: Current some day smoker SUBSTANCE USE: marijuana ED Exam General Limitations: Present no limitations General appearance: Present alert and in no apparent distress Head Head exam: Present atraumatic, normocephalic and normal inspection Eye Eye exam: Present normal appearance, PERRL and EOMI; Absent conjunctival injection ENT ENT exam: Present normal exam, normal oropharynx and mucous membranes moist Neck Neck exam: Present normal inspection, full ROM and trachea midline Chest Chest inspection: Present normal inspection and symmetric chest wall rise Respiratory Respiratory exam: Present normal lung sounds bilaterally Cardiovascular Cardiovascular exam: Present regular rate, normal rhythm and normal heart sounds Abdominal Exam Abdominal exam: Present soft and normal bowel sounds Extremities Exam Extremities exam: Present full ROM, tenderness and normal capillary refill; Absent joint swelling Back Exam Back exam: Present normal inspection and full ROM Neurological Exam Neurological exam: Present alert, oriented X3, CN II-XII intact, normal gait and reflexes normal; Absent motor sensory deficit Psychiatric Psychiatric exam: Present normal affect and normal mood Skin Skin exam: Present warm, dry, intact and normal color Course Quality Measures none Vital Signs Vital signs: Vital Signs Temperature 98.7 F 11/16/24 17:02 Pulse Rate 69 11/16/24 17:02 Respiratory Rate 20 11/16/24 17:02 Blood Pressure 108/45 L 11/16/24 17:02 Pulse Oximetry (%) 98 11/16/24 17:02 Oxygen Delivery Method Room Air 11/16/24 17:02 O2 saturation 98% on room air with normal limits Extremity Problem MDM Narrative MDM Narrative:: 44-year-old male presents emergency department today with left elbow pain ongoing for the last few days patient reports he believes he may have hyperextended his left elbow. Patient denies any direct trauma On exam patient well-appearing patient does not appear toxic no acute distress patient is full range of motion of left elbow patient is no bruising swelling or injury noted I do not believe imaging is indicated at this time Patient given Tylenol for pain Patient discharged home in no distress to follow-up with primary care doctor in the next 24 to 48 hours and for any worsening symptoms to return to the ER immediately Patient data External records reviewed:: [facility] previous records Clinical information provided by:: patient Social determinants that could affect healthcare access:: none Patient has the following chronic illnesses:: None How is presenting disease/condition affected by chronic disease/condition?: no chronic disease Evaluation data The following diagnostics were reviewed and interpreted by me:: other (specify) (N/A) Lab and/or radiology exams considered but not ordered:: Considered not ordered Interpretation Summary: N/A Medications / Prescriptions Medications or Prescriptions considered but not ordered:: Given Medication administrations:: Given Consultations Consultation(s) initiated? (list below): No Diagnosis Extremity Problem Differential Diagnosis: other (Elbow sprain, elbow fracture) Most likely diagnosis given after review of the tests above:: Elbow sprain Admission Indicated Admission indicated?: not indicated Admission Request Was there a request for admission?: No Disposition Plan Disposition Plan: Discharge Discharge Attestation Discharge Attestation: The patient and all family members were given an opportunity to ask questions and understood the discharge instructions. Discharge instructions specifically effects, indications for sooner follow up or return to the emergency department, and the expected course of current diagnosis. Patient condition: Stable Discharge Plan Plan Patient Disposition: HOME (Self Care) Discharge Disposition comment: stable Prescriptions/Referrals Prescriptions/Med Rec: New acetaminophen 500 mg capsule 1,000 mg PO Q8HR PRN (Reason: pain) Qty: 30 0RF No Action quetiapine [Seroquel] 50 mg Tablet 50 mg PO HS azithromycin 500 mg tablet See Rx Instructions .ROUTE .COMPLEX Qty: 6 0RF Rx Instructions: take 500 mg today (day 1), then 250 mg for 4 days (days 2-5) acetaminophen 325 mg capsule 650 mg PO Q8HR PRN (Reason: pain) Qty: 30 0RF divalproex 500 mg tablet extended release 24 hr 2,000 mg PO DAILY Patient Comments: TAKE 4 TABLETS BY MOUTH AT BEDTIME FOR FOURTEEN DAYS acetaminophen [Tylenol Extra Strength] 500 mg tablet 1,000 mg PO Q6H PRN (Reason: pain) Qty: 30 0RF acetaminophen 500 mg tablet 1,000 mg PO Q8HR PRN (Reason: pain) Qty: 30 0RF acetaminophen 500 mg capsule 1,000 mg PO Q8HR PRN (Reason: pain) Qty: 30 0RF Problem List Clinical Impression: Elbow pain, left Patient/Caregiver Discharge Instructions Education Materials: ED Arthralgia Additional Instructions: Please follow up with your primary care doctor in the next 24-48hrs for any worsening symptoms return here immediately Print Language: Spanish Stand Alone Forms: Paola Award Info., Patient Portal Info Letter PA/TECHNICIAN [employer] Supervising Physician PA/LUI Supervising Physician: dr reed
== END 2024-11-16 17:45 | disposition home or self-care (01) ==
PROVIDERS: Emergency Provider Emergency Medicine
DX: M25.522 Pain in left elbow (principal)
CPT/HCPCS: 99282

== ENCOUNTER 2024-11-22 00:04 | Emergency (ER) | payer MEDICAID, SELFPAY ==
[2024-11-22 00:04] VITALS: BMI 21.9
[2024-11-22 00:14] VITALS: BP 122/76; PULSE 73; RESP 18; TEMP 37; O2SAT 99
[2024-11-22] MEDS: ACETAMINOPHEN 500 MG TABLET 1000 MG PO (00:50)
[2024-11-22] MEDS: METOCLOPRAMIDE 5 MG TABLET 10 MG PO (00:51)
--- NOTE | 2024-11-22 00:52 | EDNOTE_ITS ---
ED Headache RME/HPI General Chief Complaint: Headache Stated Complaint: HEADACHE Time Seen by Provider: 11/22/24 00:36 Arrival date/time: 11/22/24 00:04 44M with history of homelessness, drug use, HTN, and migraines presents to ED with 1 day of CIFUENTES. Limitations: no limitations Related Data Home Medications ?Medication ?Instructions ?Recorded ?Confirmed quetiapine 50 mg tablet (Seroquel) 50 mg PO HS 0 06/20/22 divalproex 500 mg tablet,extended 2,000 mg PO DAILY 06/20/22 release 24 hr Previous Rx's ?Medication ?Instructions ?Recorded azithromycin 500 mg tablet See Rx Instructions PO .COM PLEX #6 08/11/22 tabs acetaminophen 500 mg tablet 1,000 mg (2 x 500 mg) PO Q 6H PRN 05/03/24 (Tylenol Extra Strength) pain #30 tabs acetaminophen 500 mg tablet 1,000 mg (2 x 500 mg) PO Q 8HR PRN 10/07/24 pain #30 tabs acetaminophen 500 mg capsule 1,000 mg (2 x 500 mg) PO Q8HR PRN 10/08/24 pain #30 caps acetaminophen 325 mg capsule 650 mg (2 x 325 mg) PO Q8 HR PRN 11/02/24 pain #30 caps acetaminophen 500 mg capsule 1,000 mg (2 x 500 mg) PO Q8HR PRN 11/16/24 pain #30 caps Allergies Allergy/AdvReac Type Severity Reaction Status Date / Time naproxen Allergy Severe HIVES Verified 11/16/24 16:52 ibuprofen AdvReac Severe ULCER Verified 11/16/24 16:52 BLEEDS tramadol HCl AdvReac Severe UNABLE TO Verified 11/16/24 16:52 URINATE Review of Systems Review of Systems Systems Reviewed: All systems reviewed, normal except as documented Constitutional Constitutional: Reports system reviewed and no additional complaints, except as documented, Reports as per HPI, Denies fever(s) and Reports headache(s) ENT Ears, Nose, Mouth, and Throat: Denies disequilibrium and Reports headache(s) Cardiovascular Cardiovascular: Reports system reviewed and no additional complaints, except as documented, Denies chest pain and Denies dyspnea Respiratory Respiratory: Reports system reviewed and no additional complaints, except as documented, Denies cough and Denies dyspnea Gastrointestinal Gastrointestinal: Reports system reviewed and no additional complaints, except as documented, Denies abdominal pain, Denies nausea and Denies vomiting Neurologic Neurologic: Reports system reviewed and no additional complaints, except as documented, Denies confusion, Denies disequilibrium and Reports headache(s) Psychiatric Psychiatric: Denies confusion Past Medical History Past Medical History NEUROLOGIC: Negative Neurological Disorders CARDIAC: Positive Hypertension; Negative Cardiac Disorders or Congestive Heart Failure RESPIRATORY: Negative Chronic Obstructive Pulmonary Disease (COPD) GASTROINTESTINAL: Positive Gastrointestinal Disorders and Ulcer GENITOURINARY: Positive Genitourinary Disorders; Negative Renal Disease ENDOCRINE: Negative Diabetes Mellitus Type 1 or Diabetes Mellitus Type 2 PSYCHO/SOCIAL: Positive Bipolar Disorder Family History FAMILY HISTORY: Negative Family Cardiac Disorders Social History SMOKING STATUS: Current every day smoker SUBSTANCE USE: marijuana ED Exam General Limitations: Present no limitations General appearance: Present alert and in no apparent distress Head Head exam: Present atraumatic Eye Eye exam: Present normal appearance, PERRL and EOMI ENT ENT exam: Present normal exam, normal oropharynx and mucous membranes moist Neck Neck exam: Present normal inspection, full ROM and trachea midline Chest Chest inspection: Present normal inspection and symmetric chest wall rise Respiratory Respiratory exam: Present normal lung sounds bilaterally Cardiovascular Cardiovascular exam: Present regular rate, normal rhythm and normal heart sounds Abdominal Exam Abdominal exam: Present soft and normal bowel sounds Extremities Exam Extremities exam: Present normal inspection and full ROM Back Exam Back exam: Present normal inspection and full ROM Neurological Exam Neurological exam: Present alert, oriented X3 and CN II-XII intact Psychiatric Psychiatric exam: Present normal affect and normal mood Skin Skin exam: Present warm, dry, intact and normal color Course Quality Measures none Orders Category Date Time Status Acetaminophen Tab [Tylenol ES Tab] Med 11/22/24 00:37 Discontinued 1,000 mg PO X1 ONE Metoclopramide [Reglan] Med 11/22/24 00:37 Discontinued 10 mg PO X1 ONE Vital Signs Vital signs: Vital Signs Temperature 98.6 F 11/22/24 00:14 Pulse Rate 73 11/22/24 00:14 Respiratory Rate 18 11/22/24 00:14 Blood Pressure 122/76 11/22/24 00:14 Pulse Oximetry (%) 99 11/22/24 00:14 Oxygen Delivery Method Room Air 11/22/24 00:14 O2 at 99% on RA and WNLs Headache MDM Narrative MDM Narrative:: 44M with history of homelessness, drug use, HTN, and migraines presents to ED with 1 day of CIFUENTES. Physical exam well-appearing male. Speech normal. Patient is afebrile, calm, and alert. Patient eloped. Patient data External records reviewed:: [facility] previous records Clinical information provided by:: patient Social determinants that could affect healthcare access:: housing Patient has the following chronic illnesses:: homelessness, drug use, HTN, and migraines How is presenting disease/condition affected by chronic disease/condition?: exacerbated by Evaluation data The following diagnostics were reviewed and interpreted by me:: other (specify) (none) Lab and/or radiology exams considered but not ordered:: not ordered Interpretation Summary: n/a Medications / Prescriptions Medications or Prescriptions considered but not ordered:: ordered Medication administrations:: Medication Administration History Discontinued Medications Acetaminophen (Acetaminophen 500 Mg Tablet) 1,000 mg PO X1 ONE Stop: 11/22/24 00:38 Last Admin: 11/22/24 00:50 Dose: 1,000 mg Documented By: ELVIA Metoclopramide HCl (Metoclopramide 5 Mg Tablet) 10 mg PO X1 ONE Stop: 11/22/24 00:38 Last Admin: 11/22/24 00:51 Dose: 10 mg Documented By: ELVIA above Consultations Consultation(s) initiated? (list below): No Diagnosis Differential diagnosis headache: migraine, tension headache, subarachnoid hemorrhage, headache, meningitis, sinusitis and postconcussion syndrome Most likely diagnosis given after review of the tests above:: CIFUENTES Admission Indicated Admission indicated?: not indicated Admission Request Was there a request for admission?: No Disposition Plan Disposition Plan: other (specify) (eloped) Discharge Plan Plan Patient Disposition: Elopement Prescriptions/Referrals Prescriptions/Med Rec: No Action quetiapine [Seroquel] 50 mg Tablet 50 mg PO HS azithromycin 500 mg tablet See Rx Instructions .ROUTE .COMPLEX Qty: 6 0RF Rx Instructions: take 500 mg today (day 1), then 250 mg for 4 days (days 2-5) acetaminophen 325 mg capsule 650 mg PO Q8HR PRN (Reason: pain) Qty: 30 0RF acetaminophen 500 mg capsule 1,000 mg PO Q8HR PRN (Reason: pain) Qty: 30 0RF divalproex 500 mg tablet extended release 24 hr 2,000 mg PO DAILY Patient Comments: TAKE 4 TABLETS BY MOUTH AT BEDTIME FOR FOURTEEN DAYS acetaminophen [Tylenol Extra Strength] 500 mg tablet 1,000 mg PO Q6H PRN (Reason: pain) Qty: 30 0RF acetaminophen 500 mg tablet 1,000 mg PO Q8HR PRN (Reason: pain) Qty: 30 0RF acetaminophen 500 mg capsule 1,000 mg PO Q8HR PRN (Reason: pain) Qty: 30 0RF Referrals: Megan Nash DO [Primary Care Provider] - In 1 week Problem List Clinical Impression: Headache Patient/Caregiver Discharge Instructions Print Language: Setswana PA/AUDIOMETRIC TECHNICIAN Supervising Physician PA/AUDIOMETRIC TECHNICIAN Supervising Physician: Dr. Charles
--- NOTE | 2024-11-22 02:09 | PC.NURSE ---
N/A FROM LOBBY OR OUTSIDE FOR RE-EVAL
--- NOTE | 2024-11-22 02:34 | PC.NURSE ---
N/A FROM LOBBY OR OUTSIDE FOR RE-EVAL
--- NOTE | 2024-11-22 02:39 | PC.NURSE ---
N/A FROM LOBBY OR OUTSIDE FOR RE-EVAL. ELOPED
== END 2024-11-22 02:40 | disposition left against medical advice (07) ==
LOC: SERX 00:59
PROVIDERS: Emergency Provider Emergency Medicine; PCP Emergency Medicine
DX: R51.9 Headache, unspecified (principal); Z53.29 Procedure and treatment not carried out because of patient's decision for other reasons
CPT/HCPCS: 99283; A9270

== ENCOUNTER 2024-11-24 13:32 | Emergency (ER) | payer MEDICAID, SELFPAY ==
[2024-11-24 13:33] VITALS: BMI 21.9
--- NOTE | 2024-11-24 13:46 | PD.EDADULT ---
ED General RME/HPI General Chief complaint: General Adult/Misc Complain Stated complaint: L) SWOLLEN HYDROCELE Time Seen by Provider: 11/24/24 13:39 Arrival date/time: 11/24/24 13:32 This is a 44-year-old male that comes into the emergency room with complaints of left testicle pain. Patient states he has a known hydrocele on that side. Patient states that he has been working with his primary and they have been considering removing it. Patient denies any fever or chills. Patient states his urine has been dark in color recently. Patient denies any nausea vomiting diarrhea. Denies past medical history. Related Data Home Medications ?Medication ?Instructions ?Recorded ?Confirmed quetiapine 50 mg tablet (Seroquel) 50 mg PO HS 10/23/19 06/20/22 divalproex 500 mg tablet,extended 2,000 mg PO DAILY 06/20/22 06/20/22 release 24 hr Previous Rx's ?Medication ?Instructions ?Recorded azithromycin 500 mg tablet See Rx Instructions PO .COMPLEX #6 08/11/22 tabs acetaminophen 500 mg tablet 1,000 mg (2 x 500 mg) PO Q6H PRN 05/03/24 (Tylenol Extra Strength) pain #30 tabs acetaminophen 500 mg tablet 1,000 mg (2 x 500 mg) PO Q8HR PRN 10/07/24 pain #30 tabs acetaminophen 500 mg capsule 1,000 mg (2 x 500 mg) PO Q8HR PRN 10/08/24 pain #30 caps acetaminophen 325 mg capsule 650 mg (2 x 325 mg) PO Q8HR PRN 11/02/24 pain #30 caps acetaminophen 500 mg capsule 1,000 mg (2 x 500 mg) PO Q8HR PRN 11/16/24 pain #30 caps diphenhydramine HCl 25 mg tablet 25 mg PO TID PRN itching 10 days 11/27/24 (Benadryl Allergy) #30 tabs mupirocin 2 % topical ointment 1 applic topical BID #15 grams 11/27/24 bacitracin 500 unit/gram topical 1 applic topical TID #28 grams 12/03/24 ointment Allergies Allergy/AdvReac Type Severity Reaction Status Date / Time naproxen Allergy Severe HIVES Verified 12/06/24 06:36 ibuprofen AdvReac Severe ULCER Verified 12/06/24 06:36 BLEEDS tramadol HCl AdvReac Severe UNABLE TO Verified 12/06/24 06:36 URINATE Review of Systems Review of Systems Systems Reviewed: All systems reviewed, normal except as documented Past Medical History Past Medical History NEUROLOGIC: Negative Neurological Disorders CARDIAC: Positive Hypertension; Negative Cardiac Disorders or Congestive Heart Failure RESPIRATORY: Negative Chronic Obstructive Pulmonary Disease (COPD) GASTROINTESTINAL: Positive Gastrointestinal Disorders and Ulcer GENITOURINARY: Positive Genitourinary Disorders; Negative Renal Disease ENDOCRINE: Negative Diabetes Mellitus Type 1 or Diabetes Mellitus Type 2 PSYCHO/SOCIAL: Positive Bipolar Disorder Family History FAMILY HISTORY: Negative Family Cardiac Disorders Social History SMOKING STATUS: Current every day smoker SUBSTANCE USE: marijuana ED Exam Narrative Physical exam: VITAL SIGNS: Reviewed. GENERAL APPEARANCE: Alert and interactive, follows commands, no acute distress HEAD AND FACE: Non-traumatic. ENT: PERRL, conjuctiva pink and clear, eyelid no trauma, Mucous membrane moist. NECK: Supple, nontender, no nuchal rigidity. CHEST: No tenderness, no crepitus, no paradoxical movement, no retractions. LUNGS: breathing even and unlabored HEART: Regular rate, cap refill less than 2 seconds ABDOMEN: Soft, nondistended, no guarding, nontender, no pain to palpation left or right testicle, no erythema or swelling NEUROLOGICAL: Gross motor function intact sensory function intact, Appropriate for age. MUSCULOSKELETAL: low back nontender, full range of motion. EXTREMITIES: No redness no swelling no skin breakdown on bilateral foot and leg. Distal neurovascular status intact bilateral foot SKIN: Color pink, dry, no rash, no lacerations, no abrasions, no contusions. Course Quality Measures none Orders Category Date Time Status US testicular Stat Exams 11/24/24 13:52 Completed Urinalysis, C/S if Indicated Stat Lab 11/24/24 14:13 Completed Acetaminophen Tab [Tylenol ES Tab] Med 11/24/24 17:53 Discontinued 1,000 mg PO X1 ONE Vital Signs Vital signs: Vital Signs Temperature 98.1 F 11/24/24 13:47 Pulse Rate 70 11/24/24 13:47 Respiratory Rate 18 11/24/24 13:47 Blood Pressure 117/74 11/24/24 13:47 Pulse Oximetry (%) 97 11/24/24 13:47 Oxygen Delivery Method Room Air 11/24/24 13:47 Discharge Plan Plan Patient Disposition: HOME (Self Care) Patient condition on transfer: Stable Prescriptions/Referrals Prescriptions/Med Rec: No Action quetiapine [Seroquel] 50 mg Tablet 50 mg PO HS azithromycin 500 mg tablet See Rx Instructions .ROUTE .COMPLEX Qty: 6 0RF Rx Instructions: take 500 mg today (day 1), then 250 mg for 4 days (days 2-5) acetaminophen 325 mg capsule 650 mg PO Q8HR PRN (Reason: pain) Qty: 30 0RF acetaminophen 500 mg capsule 1,000 mg PO Q8HR PRN (Reason: pain) Qty: 30 0RF mupirocin 2 % ointment 1 applic topical BID Qty: 15 0RF diphenhydramine HCl [Benadryl Allergy] 25 mg tablet 25 mg PO TID PRN (Reason: itching) 10 Days Qty: 30 0RF divalproex 500 mg tablet extended release 24 hr 2,000 mg PO DAILY Patient Comments: TAKE 4 TABLETS BY MOUTH AT BEDTIME FOR FOURTEEN DAYS acetaminophen [Tylenol Extra Strength] 500 mg tablet 1,000 mg PO Q6H PRN (Reason: pain) Qty: 30 0RF acetaminophen 500 mg tablet 1,000 mg PO Q8HR PRN (Reason: pain) Qty: 30 0RF acetaminophen 500 mg capsule 1,000 mg PO Q8HR PRN (Reason: pain) Qty: 30 0RF bacitracin 500 unit/gram ointment 1 applic topical TID Qty: 28 0RF Referrals: No Primary/Family,Physician [Primary Care Provider] - In 1 week Problem List Clinical Impression: Left varicocele Patient/Caregiver Discharge Instructions Discharge Activity: activity as tolerated Education Materials: Treating Varicocele, ED Varicocele Additional Instructions: follow up with primary provider in 1-2 days. Come back to ED if symptoms change or worsen. Print Language: Upper Sorbian Stand Alone Forms: Paola Award Info., Patient Portal Info Letter PA/STATISTICAL CONSULTANT Supervising Physician PA/STATISTICAL CONSULTANT Supervising Physician: alban FLYNN hospital course: Spoke to patient at length. Urinalysis shows some RBCs but very few. Patient denies any urinary symptoms such as dysuria urgency or frequency. Will give patient Tylenol for pain. Patient states he has a follow-up appointment with his primary doctor already. Patient told to come back to emergency room symptoms change or worsen. Testicular ultrasound shows: Impression: No testicular torsion or testicular mass Moderate left varicocele Minimal left hydrocele Saraon dictation: Although this document has been carefully reviewed, there may still be some phonetic and other typographical errors. These errors are purely grammatical due to imperfections in the software program and should not be construed in any way to compromise the substance of the patient's medical care during this visit. Clinical Information Provided by patient Medical Records Reviewed [facility] Meds/Rx Considered, not Ordered None Labs/Rad/Tests considered, not Ordered Describe details: See MDM Chronic Illness/Social Conditions which may negatively complicate care or outcome(s)-explain: None or not applicable EKG EKG not done Lab Interpretation Labs: interpreted by me Imaging Imaging interpretation: see narrative above Medication Administration(s) none Medication Administration History Discontinued Medications Acetaminophen (Acetaminophen 500 Mg Tablet) 1,000 mg PO X1 ONE Stop: 11/24/24 17:54 Last Admin: 11/24/24 18:21 Dose: Not Given Documented By: OUSMANE Non-Admin Reason: Patient Refused Dispositon Disposition: Discharge Home
[2024-11-24 13:47] VITALS: BP 117/74; PULSE 70; RESP 18; TEMP 36.7; O2SAT 97
--- NOTE | 2024-11-24 13:52 | XR_ITS ---
Examination: Testicular sonography complete Technique: Grayscale sonographic images testes, assessment arterial inflow venous outflow Doppler spectral analysis carful analysis Date and time: November 24, 2024, 1409 hrs. Indications: Left testicular pain and swelling 2.5 years, history hydrocele Findings: Right testis 4.6 cm epididymis 1.0 cm Arterial flow testicle. No testicular mass Left testis 4.1 cm epididymis 0.7 cm Arterial flow testicle. No testicular mass Moderate left varicocele Minimal left hydrocele Impression: No testicular torsion or testicular mass Moderate left varicocele Minimal left hydrocele
[2024-11-24 14:32] LABS: Collection Type, Urine Voided; Squamous Epithelial Cell,Urine 0 /hpf (0-5)
[2024-11-24 14:42] LABS: Bilirubin,Urine Negative (Negative); Blood,Urine Negative (Negative); Clarity,Urine Clear (Clear/Hazy); Color,Urine Lt-Yellow (Lt Yel-Yel); Culture Indicated,Urine Not Indicated; Glucose, Urine Negative (Negative); Ketones,Urine Negative (Negative); Leukocyte Esterase,Urine Negative (Negative); Nitrite,Urine Negative (Negative); PH,Urine 6.0 (5.0-7.0); Protein,Urine Negative (Neg - Trace); RBC,Urine 4 /hpf (0-3); Specific Gravity,Urine 1.020 (1.001-1.035); Urobilinogen,Urine Negative mg/dL (0.0-1.0); WBC,Urine 1 /hpf (0-5)
--- NOTE | 2024-11-24 16:40 | PC.NURSE ---
PT CALLED OUTSIDE AND IN THE LOBBY; NO RESPONSE AT THIS TIME
--- NOTE | 2024-11-24 17:20 | PC.NURSE ---
PT CALLED OUTSIDE AND IN LOBBY; NO RESPONSE AT THIS TIME
[2024-11-24 17:31] VITALS: BP 117/77; PULSE 67; RESP 18; TEMP 36.7; O2SAT 98
== END 2024-11-24 18:22 | disposition home or self-care (01) ==
PROVIDERS: Nurse Practitioner Family; Emergency Provider Family Medicine
DX: I86.1 Scrotal varices (principal)
CPT/HCPCS: 76870; 81001; 99283

== ENCOUNTER 2024-11-27 07:12 | Emergency (ER) | payer MEDICAID, SELFPAY ==
[2024-11-27 07:19] VITALS: BP 127/71; PULSE 75; RESP 17; TEMP 36.8; O2SAT 98; BMI 23.3
--- NOTE | 2024-11-27 07:34 | EDNOTE_ITS ---
<Statement entered by Aline Barrientos MD - 11/27/24 08:16> As co-signing physician, I was present and available for consult prn. I concur with the plan and care as documented by the midlevel provider. ED Animal Bite RME/HPI General Chief Complaint: Animal Bite Stated Complaint: Bite from red ant Time Seen by Provider: 11/27/24 07:34 Source: patient Arrival date/time: 11/27/24 07:12 Mode of arrival: ambulatory Limitations: no limitations RME / HPI RME / HPI narrative: 44-year-old male presents complaining read at bite to the right forearm and the right medial aspect of the ankle. Patient requesting a cream. complaint: other (Red ants) Onset (ago): day(s) (2 days) Animal: other (Red ants) Mechanism: bite Pain description: sharp Severity scale (1-10): 5 Context: unprovoked Associated symptoms: other (Itchiness) Related Data Home Medications ?Medication ?Instructions ?Recorded ?Confirmed quetiapine 50 mg tablet (Seroquel) 50 mg PO HS 0 06/20/22 divalproex 500 mg tablet,extended 2,000 mg PO DAILY 06/20/22 release 24 hr Previous Rx's ?Medication ?Instructions ?Recorded azithromycin 500 mg tablet See Rx Instructions PO .COM PLEX #6 08/11/22 tabs acetaminophen 500 mg tablet 1,000 mg (2 x 500 mg) PO Q 6H PRN 05/03/24 (Tylenol Extra Strength) pain #30 tabs acetaminophen 500 mg tablet 1,000 mg (2 x 500 mg) PO Q 8HR PRN 10/07/24 pain #30 tabs acetaminophen 500 mg capsule 1,000 mg (2 x 500 mg) PO Q8HR PRN 10/08/24 pain #30 caps acetaminophen 325 mg capsule 650 mg (2 x 325 mg) PO Q8 HR PRN 11/02/24 pain #30 caps acetaminophen 500 mg capsule 1,000 mg (2 x 500 mg) PO Q8HR PRN 11/16/24 pain #30 caps diphenhydramine HCl 25 mg tablet 25 mg PO TID PRN itch ing 10 days 11/27/24 (Benadryl Allergy) #30 tabs mupirocin 2 % topical ointment 1 applic topical BID #1 5 grams 11/27/24 Allergies Allergy/AdvReac Type Severity Reaction Status Date / Time naproxen Allergy Severe HIVES Verified 11/27/24 07:14 ibuprofen AdvReac Severe ULCER Verified 11/27/24 07:14 BLEEDS tramadol HCl AdvReac Severe UNABLE TO Verified 11/27/24 07:14 URINATE Review of Systems Constitutional Constitutional: Reports system reviewed and no additional complaints, except as documented Eyes Eyes: Reports system reviewed and no additional complaints, except as documented, Denies dry eyes, Denies exophthalmos and Reports floaters Cardiovascular Cardiovascular: Denies chest pain with activity and Denies claudication ED Exam Narrative Physical exam: The right forearm anterior aspect has occasional insect bite-like lesions and this includes the right medial aspect of the ankle superior to the medial malleolus. Both extremities do not exhibit lymphangitis. General Limitations: Present no limitations General appearance: Present alert and in no apparent distress Head Head exam: Present atraumatic Eye Eye exam: Present normal appearance and EOMI ENT ENT exam: Present normal exam, normal oropharynx and mucous membranes moist Neck Neck exam: Present normal inspection, full ROM and trachea midline Extremities Exam Extremities exam: Present full ROM and other (As described above) Back Exam Back exam: Present normal inspection and full ROM Neurological Exam Neurological exam: Present alert and oriented X3 Psychiatric Psychiatric exam: Present normal affect and normal mood Skin Skin exam: Present other (As described above) Course Course Course Narrative: Patient to be discharged in no apparent distress Quality Measures none Orders NA Vital Signs Vital signs: Vital Signs Temperature 98.3 F 11/27/24 07:19 Pulse Rate 75 11/27/24 07:19 Respiratory Rate 17 11/27/24 07:19 Blood Pressure 127/71 11/27/24 07:19 Pulse Oximetry (%) 98 11/27/24 07:19 Oxygen Delivery Method Room Air 11/27/24 07:19 Pulse ox 98% Animal Bite MDM Narrative MDM Narrative:: Patient will have Benadryl and mupirocin sent to the pharmacy of his choice. Patient will be discharged in no apparent distress. Patient is to follow-up primary care physician within 1 week or if worse he may return here. Patient data External records reviewed:: Other (specify) (NA) Clinical information provided by:: none (NA) Social determinants that could affect healthcare access:: none (NA) Patient has the following chronic illnesses:: NA How is presenting disease/condition affected by chronic disease/condition?: no chronic disease (NO CHRONIC DZ) Evaluation data The following diagnostics were reviewed and interpreted by me:: other (specify) (HERMAN) Lab and/or radiology exams considered but not ordered:: NA Interpretation Summary: Ant bite Medications / Prescriptions Medications or Prescriptions considered but not ordered:: NA Medication administrations:: NA Consultations Consultation(s) initiated? (list below): No Diagnosis Differential diagnosis animal bite: bite by animal, cat bite, dog bite and rabies contact Most likely diagnosis given after review of the tests above:: NONE DONE Admission Indicated Admission indicated?: not indicated Explain why admission is indicated or not indicated:: NA Admission Request Was there a request for admission?: No Disposition Plan Disposition Plan: Discharge Discharge Attestation Discharge Attestation: The patient and all family members were given an opportunity to ask questions and understood the discharge instructions. Discharge instructions specifically effects, indications for sooner follow up or return to the emergency department, and the expected course of current diagnosis. Patient condition: Stable Discharge Plan Plan Patient Disposition: HOME (Self Care) Discharge Disposition comment: Discharge in no apparent distress Patient condition on transfer: Stable Prescriptions/Referrals Prescriptions/Med Rec: New mupirocin 2 % ointment 1 applic topical BID Qty: 15 0RF diphenhydramine HCl [Benadryl Allergy] 25 mg tablet 25 mg PO TID PRN (Reason: itching) 10 Days Qty: 30 0RF No Action quetiapine [Seroquel] 50 mg Tablet 50 mg PO HS azithromycin 500 mg tablet See Rx Instructions .ROUTE .COMPLEX Qty: 6 0RF Rx Instructions: take 500 mg today (day 1), then 250 mg for 4 days (days 2-5) acetaminophen 325 mg capsule 650 mg PO Q8HR PRN (Reason: pain) Qty: 30 0RF acetaminophen 500 mg capsule 1,000 mg PO Q8HR PRN (Reason: pain) Qty: 30 0RF divalproex 500 mg tablet extended release 24 hr 2,000 mg PO DAILY Patient Comments: TAKE 4 TABLETS BY MOUTH AT BEDTIME FOR FOURTEEN DAYS acetaminophen [Tylenol Extra Strength] 500 mg tablet 1,000 mg PO Q6H PRN (Reason: pain) Qty: 30 0RF acetaminophen 500 mg tablet 1,000 mg PO Q8HR PRN (Reason: pain) Qty: 30 0RF acetaminophen 500 mg capsule 1,000 mg PO Q8HR PRN (Reason: pain) Qty: 30 0RF Problem List Clinical Impression: Fire ant bite Impression comment: Cat bite Patient/Caregiver Discharge Instructions Discharge Activity: activity as tolerated Print Language: Upper Sorbian Stand Alone Forms: Paola Award Info., Patient Portal Info Letter PA/PROFESSOR OF COMMUNICATION Supervising Physician PA/PROFESSOR OF COMMUNICATION Supervising Physician: PHAN
== END 2024-11-27 08:00 | disposition home or self-care (01) ==
LOC: SERX 08:09
PROVIDERS: Emergency Provider Physician Assistant; PCP Nurse Practitioner Family
DX: S50.861A Insect bite (nonvenomous) of right forearm, initial encounter (principal); W57.XXXA Bitten or stung by nonvenomous insect and other nonvenomous arthropods, initial encounter
CPT/HCPCS: 99282

== ENCOUNTER 2024-12-03 11:03 | Emergency (ER) | payer MEDICAID, SELFPAY ==
[2024-12-03 11:03] VITALS: BMI 23.6
[2024-12-03 11:16] VITALS: BP 106/64; PULSE 77; RESP 16; TEMP 37.2; O2SAT 97
--- NOTE | 2024-12-03 11:27 | PD.EDSKIN ---
ED Skin Abcess FB-RME/HPI General Chief complaint: Skin/Abscess/Foreign Body Stated complaint: SKIN PEELING ON BACK Time Seen by Provider: 12/03/24 11:13 Source: patient Arrival date/time: 12/03/24 11:03 44-year-old male with no known medical history presents to the emergency room with a chief complaint of skin peeling on his back x 2 days Mode of arrival: ambulatory Limitations: no limitations Related Data Home Medications ?Medication ?Instructions ?Recorded ?Confirmed quetiapine 50 mg tablet (Seroquel) 50 mg PO HS 10/23/19 06/20/22 divalproex 500 mg tablet,extended 2,000 mg PO DAILY 06/20/22 06/20/22 release 24 hr Previous Rx's ?Medication ?Instructions ?Recorded azithromycin 500 mg tablet See Rx Instructions PO .COMPLEX #6 08/11/22 tabs acetaminophen 500 mg tablet 1,000 mg (2 x 500 mg) PO Q6H PRN 05/03/24 (Tylenol Extra Strength) pain #30 tabs acetaminophen 500 mg tablet 1,000 mg (2 x 500 mg) PO Q8HR PRN 10/07/24 pain #30 tabs acetaminophen 500 mg capsule 1,000 mg (2 x 500 mg) PO Q8HR PRN 10/08/24 pain #30 caps acetaminophen 325 mg capsule 650 mg (2 x 325 mg) PO Q8HR PRN 11/02/24 pain #30 caps acetaminophen 500 mg capsule 1,000 mg (2 x 500 mg) PO Q8HR PRN 11/16/24 pain #30 caps diphenhydramine HCl 25 mg tablet 25 mg PO TID PRN itching 10 days 11/27/24 (Benadryl Allergy) #30 tabs mupirocin 2 % topical ointment 1 applic topical BID #15 grams 11/27/24 bacitracin 500 unit/gram topical 1 applic topical TID #28 grams 12/03/24 ointment Allergies Allergy/AdvReac Type Severity Reaction Status Date / Time naproxen Allergy Severe HIVES Verified 12/03/24 11:06 ibuprofen AdvReac Severe ULCER Verified 12/03/24 11:06 BLEEDS tramadol HCl AdvReac Severe UNABLE TO Verified 12/03/24 11:06 URINATE Review of Systems Review of Systems Systems Reviewed: All systems reviewed, normal except as documented Constitutional Constitutional: Reports system reviewed and no additional complaints, except as documented, Denies fatigue, Denies fever(s), Denies headache(s) and Denies weakness Eyes Eyes: Reports system reviewed and no additional complaints, except as documented, Denies blurry vision and Denies change in vision ENT Ears, Nose, Mouth, and Throat: Reports system reviewed and no additional complaints, except as documented, Denies otalgia, Denies headache(s), Denies nasal congestion, Denies throat swelling and Denies vertigo Cardiovascular Cardiovascular: Reports system reviewed and no additional complaints, except as documented, Denies chest pain, Denies dyspnea and Denies dyspnea on exertion Respiratory Respiratory: Reports system reviewed and no additional complaints, except as documented, Denies chest congestion, Denies cough, Denies dyspnea, Denies dyspnea on exertion and Denies wheezing Gastrointestinal Gastrointestinal: Reports system reviewed and no additional complaints, except as documented, Denies abdominal pain, Denies cramping, Denies nausea and Denies vomiting Genitourinary Genitourinary: Reports system reviewed and no additional complaints, except as documented, Denies dysuria and Denies hematuria Musculoskeletal Musculoskeletal: Reports system reviewed and no additional complaints, except as documented and Denies back pain Integumentary/Breasts Skin/Breast: Reports system reviewed and no additional complaints, except as documented, Reports pruritus, Reports skin pain and Denies wounds Neurologic Neurologic: Reports system reviewed and no additional complaints, except as documented, Denies confusion, Denies headache(s), Denies lack of coordination, Denies vertigo and Denies weakness Psychiatric Psychiatric: Reports system reviewed and no additional complaints, except as documented, Denies anxiety, Denies confusion, Denies depression, Denies paranoia, Denies suicidal ideation and Denies tactile hallucinations Endocrine Endocrine: Reports system reviewed and no additional complaints, except as documented and Denies fatigue Hematologic/Lymphatic Hematologic/Lymphatic: Reports system reviewed and no additional complaints, except as documented and Denies lymphadenopathy Allergic/Immunologic Allergic/Immunologic: Reports system reviewed and no additional complaints, except as documented, Denies throat swelling, Denies urticaria and Denies wheezing Past Medical History Past Medical History NEUROLOGIC: Negative Neurological Disorders CARDIAC: Positive Hypertension; Negative Cardiac Disorders or Congestive Heart Failure RESPIRATORY: Negative Chronic Obstructive Pulmonary Disease (COPD) GASTROINTESTINAL: Positive Gastrointestinal Disorders and Ulcer GENITOURINARY: Positive Genitourinary Disorders; Negative Renal Disease ENDOCRINE: Negative Diabetes Mellitus Type 1 or Diabetes Mellitus Type 2 PSYCHO/SOCIAL: Positive Bipolar Disorder Family History FAMILY HISTORY: Negative Family Cardiac Disorders Social History SMOKING STATUS: Current every day smoker SUBSTANCE USE: marijuana ED Exam General Limitations: Present no limitations General appearance: Present alert and in no apparent distress Head Head exam: Present atraumatic Eye Eye exam: Present normal appearance, PERRL and EOMI ENT ENT exam: Present normal exam, normal oropharynx and mucous membranes moist Neck Neck exam: Present normal inspection, full ROM and trachea midline Chest Chest inspection: Present normal inspection and symmetric chest wall rise Respiratory Respiratory exam: Present normal lung sounds bilaterally Cardiovascular Cardiovascular exam: Present regular rate, normal rhythm and normal heart sounds Abdominal Exam Abdominal exam: Present soft and normal bowel sounds Extremities Exam Extremities exam: Present normal inspection and full ROM Back Exam Back exam: Present normal inspection and full ROM Neurological Exam Neurological exam: Present alert, oriented X3 and CN II-XII intact Psychiatric Psychiatric exam: Present normal affect and normal mood Skin Skin exam: Present warm, dry, intact and normal color Expanded Skin Exam Type of lesion: Present rash Distribution: Present back Description: Present erythematous and other (Sunburn) Course Quality Measures none Orders Category Date Time Status EKG (ED Only) Stat Exams 12/03/24 11:21 Stop Req Vital Signs Vital signs: Vital Signs Temperature 98.9 F 12/03/24 11:16 Pulse Rate 77 12/03/24 11:16 Respiratory Rate 16 12/03/24 11:16 Blood Pressure 106/64 12/03/24 11:16 Pulse Oximetry (%) 97 12/03/24 11:16 Oxygen Delivery Method Room Air 12/03/24 11:16 Skin / Abscess / Foreign Body MDM Narrative MDM Narrative:: 44-year-old male with no known medical history presents to the emergency room with a chief complaint of skin peeling on his back x 2 days Patient is hemodynamically stable and in no apparent distress Physical examination shows a first-degree sunburn to his upper and lower back. Patient states he was out in the sun and his lower back started to peel this morning causing pain and itchiness. Patient was discharged with medication to help prevent infection there is no blistering there is only peeling. Patient was discharged and educated to follow-up with primary care provider in the next 24 to 48 hours and return to the emergency room for any evidence of worsening signs or symptoms Patient data External records reviewed:: [facility] previous records Clinical information provided by:: patient Social determinants that could affect healthcare access:: none Patient has the following chronic illnesses:: No chronic illness How is presenting disease/condition affected by chronic disease/condition?: no chronic disease Evaluation data The following diagnostics were reviewed and interpreted by me:: lab results and radiology exam(s) Lab and/or radiology exams considered but not ordered:: Labs and radiology exams considered and ordered Interpretation Summary: N/A Medications / Prescriptions Medications or Prescriptions considered but not ordered:: Medication given Medication administrations:: Rx given Consultations Consultation(s) initiated? (list below): No Diagnosis Skin/Abscess Differential Diagnosis: cellulitis, contact dermatitis and other (First-degree sunburn) Most likely diagnosis given after review of the tests above:: First-degree sunburn Admission Indicated Admission indicated?: not indicated Admission Request Was there a request for admission?: No Disposition Plan Disposition Plan: Discharge Discharge Attestation Discharge Attestation: The patient and all family members were given an opportunity to ask questions and understood the discharge instructions. Discharge instructions specifically effects, indications for sooner follow up or return to the emergency department, and the expected course of current diagnosis. Patient condition: Stable Discharge Plan Plan Patient Disposition: HOME (Self Care) Discharge Disposition comment: Stable Prescriptions/Referrals Prescriptions/Med Rec: New bacitracin 500 unit/gram ointment 1 applic topical TID Qty: 28 0RF No Action quetiapine [Seroquel] 50 mg Tablet 50 mg PO HS azithromycin 500 mg tablet See Rx Instructions .ROUTE .COMPLEX Qty: 6 0RF Rx Instructions: take 500 mg today (day 1), then 250 mg for 4 days (days 2-5) acetaminophen 325 mg capsule 650 mg PO Q8HR PRN (Reason: pain) Qty: 30 0RF acetaminophen 500 mg capsule 1,000 mg PO Q8HR PRN (Reason: pain) Qty: 30 0RF mupirocin 2 % ointment 1 applic topical BID Qty: 15 0RF diphenhydramine HCl [Benadryl Allergy] 25 mg tablet 25 mg PO TID PRN (Reason: itching) 10 Days Qty: 30 0RF divalproex 500 mg tablet extended release 24 hr 2,000 mg PO DAILY Patient Comments: TAKE 4 TABLETS BY MOUTH AT BEDTIME FOR FOURTEEN DAYS acetaminophen [Tylenol Extra Strength] 500 mg tablet 1,000 mg PO Q6H PRN (Reason: pain) Qty: 30 0RF acetaminophen 500 mg tablet 1,000 mg PO Q8HR PRN (Reason: pain) Qty: 30 0RF acetaminophen 500 mg capsule 1,000 mg PO Q8HR PRN (Reason: pain) Qty: 30 0RF Problem List Clinical Impression: 1st degree sunburn Patient/Caregiver Discharge Instructions Education Materials: ED Sunburn, ED Burn, First-Degree Additional Instructions: Please follow-up with your primary care provider in the next 24 to 48 hours You have a sunburn that is peeling in your back. Medication was sent to your pharmacy to help your sunburn heal. Aloe Vera can also help with your symptoms For any evidence of worsening signs or symptoms return to the emergency room immediately Print Language: Bulgarian Stand Alone Forms: Paola Award Info., Patient Portal Info Letter PA/ASSOCIATE BROKER Supervising Physician PA/ASSOCIATE BROKER Supervising Physician: Dr. Bneito EMMANUEL Attestation MD Attestation The patient was seen by the midlevel practitioner. I, the co-signing physician, was present during the entire ER visit. While I did not physically examine the patient, I was available for consultation as needed. I agree with the plan and documentation.
== END 2024-12-03 11:37 | disposition home or self-care (01) ==
LOC: SERX 11:43
PROVIDERS: Emergency Provider Nurse Practitioner Family; PCP Nurse Practitioner Family
DX: L55.0 Sunburn of first degree (principal)
CPT/HCPCS: 80053; 81001; 83735; 83880; 84484; 85025; 85610; 85730; 99282

== ENCOUNTER 2024-12-06 06:31 | Emergency (ER) | payer MEDICAID, SELFPAY ==
[2024-12-06 06:32] VITALS: BMI 23.6
[2024-12-06 07:00] VITALS: BP 125/76; PULSE 67; RESP 16; TEMP 36.6; O2SAT 97
--- NOTE | 2024-12-06 07:02 | EDNOTE_ITS ---
<Statement entered by Ann Oliver MD - 12/06/24 07:57> As co-signing physician, I was present and available for consult prn. I concur with the plan and care as documented by the midlevel provider. ED Headache RME/HPI General Chief Complaint: Headache Stated Complaint: HEADACHE HX OF Time Seen by Provider: 12/06/24 06:57 Arrival date/time: 12/06/24 06:31 CC: Headache onset 3 AM this morning, is mild nausea denies any light sensitivity noise sensitivity or active vomiting. No OTC medicines taken. Review the medical record show this patient has a multiple visits for very minor events. Patient advised to follow-up with his primary care doctor not come to the emergency room for such complaints. Related Data Home Medications ?Medication ?Instructions ?Recorded ?Confirmed quetiapine 50 mg tablet (Seroquel) 50 mg PO HS 0 06/20/22 divalproex 500 mg tablet,extended 2,000 mg PO DAILY 06/20/22 release 24 hr Previous Rx's ?Medication ?Instructions ?Recorded azithromycin 500 mg tablet See Rx Instructions PO .COM PLEX #6 08/11/22 tabs acetaminophen 500 mg tablet 1,000 mg (2 x 500 mg) PO Q 6H PRN 05/03/24 (Tylenol Extra Strength) pain #30 tabs acetaminophen 500 mg tablet 1,000 mg (2 x 500 mg) PO Q 8HR PRN 10/07/24 pain #30 tabs acetaminophen 500 mg capsule 1,000 mg (2 x 500 mg) PO Q8HR PRN 10/08/24 pain #30 caps acetaminophen 325 mg capsule 650 mg (2 x 325 mg) PO Q8 HR PRN 11/02/24 pain #30 caps acetaminophen 500 mg capsule 1,000 mg (2 x 500 mg) PO Q8HR PRN 11/16/24 pain #30 caps diphenhydramine HCl 25 mg tablet 25 mg PO TID PRN itch ing 10 days 11/27/24 (Benadryl Allergy) #30 tabs mupirocin 2 % topical ointment 1 applic topical BID #1 5 grams 11/27/24 bacitracin 500 unit/gram topical 1 applic topical TID #28 grams 12/03/24 ointment Allergies Allergy/AdvReac Type Severity Reaction Status Date / Time naproxen Allergy Severe HIVES Verified 12/06/24 06:36 ibuprofen AdvReac Severe ULCER Verified 12/06/24 06:36 BLEEDS tramadol HCl AdvReac Severe UNABLE TO Verified 12/06/24 06:36 URINATE Review of Systems Review of Systems Narrative Review of Systems: GEN: No fever, no chills, no weight loss EYES: No discharge, no visual changes, no pain HEENT: No ear pain, no congestion, no sore throat PULM: No shortness of breath, no cough, no congestion CV: No chest pain, no dyspnea on exertion, no palpitations GI: No nausea, no vomiting, no diarrhea, no pain, no constipation : No frequency, no urgency, no dysuria MUSC/SKEL: No joint pain, no back pain SKIN: No rash PSYCH: No hallucinations, no depression HEME/LYMPH: No easy bleeding or bruising tendencies NEURO: No weakness, + headache Past Medical History Past Medical History NEUROLOGIC: Negative Neurological Disorders CARDIAC: Positive Hypertension; Negative Cardiac Disorders or Congestive Heart Failure RESPIRATORY: Negative Chronic Obstructive Pulmonary Disease (COPD) GASTROINTESTINAL: Positive Gastrointestinal Disorders and Ulcer GENITOURINARY: Positive Genitourinary Disorders; Negative Renal Disease ENDOCRINE: Negative Diabetes Mellitus Type 1 or Diabetes Mellitus Type 2 PSYCHO/SOCIAL: Positive Bipolar Disorder Family History FAMILY HISTORY: Negative Family Cardiac Disorders Social History SMOKING STATUS: Current every day smoker SUBSTANCE USE: marijuana ED Exam Narrative Physical exam: [General: Thin but not emaciated. Mildly disheveled but not in any acute distr ess Head normocephalic HEENT: Eyes pupils are PERRLA EOMs are intact mouth pink moist membranes uvula is midline swallow symmetrical phonation is normal. Within acceptable limits Neck is supple nontender Chest equal chest rise nontender to palpation Respiratory: Clear to auscultation no wheezes crackles or rubs CV: Rate rhythm is regular no murmurs rubs or clicks Abdomen is flat, soft nontender no masses positive bowel sounds all 4 quadrants Back: No CVA tenderness no spinous process tenderness from cervical spine thoracic and lumbar spine Skin: Intact no petechiae rash induration ulceration or crepitus Extremities: Moving all extremity against resistance cap refill less than 2 seconds neurosensory intact Neuro: Awake alert oriented x3 Glascow coma 15 no focal deficits] Course Quality Measures none Orders Category Date Time Status Acetaminophen Tab [Tylenol Tab] Med 12/06/24 07:02 Once 650 mg PO X1 ONE Metoclopramide [Reglan] Med 12/06/24 07:02 Once 10 mg PO X1 ONE Vital Signs Vital signs: Vital Signs Temperature 97.8 F 12/06/24 07:00 Pulse Rate 67 12/06/24 07:00 Respiratory Rate 16 12/06/24 07:00 Blood Pressure 125/76 12/06/24 07:00 Pulse Oximetry (%) 97 12/06/24 07:00 Oxygen Delivery Method CPAP 12/06/24 07:00 Headache Patient data External records reviewed:: [facility] previous records Clinical information provided by:: patient Social determinants that could affect healthcare access:: substance use Patient has the following chronic illnesses:: None How is presenting disease/condition affected by chronic disease/condition?: uneffected by Evaluation data The following diagnostics were reviewed and interpreted by me:: other (specify) (None) Lab and/or radiology exams considered but not ordered:: None Interpretation Summary: None Medications / Prescriptions Medications or Prescriptions considered but not ordered:: None Medication administrations:: Tylenol metoclopramide Consultations Consultation(s) initiated? (list below): No Diagnosis Differential diagnosis headache: headache Most likely diagnosis given after review of the tests above:: Headache Admission Indicated Admission indicated?: not indicated Explain why admission is indicated or not indicated:: Stable for outpatient follow-up Admission Request Was there a request for admission?: No Disposition Plan Disposition Plan: Discharge Discharge Attestation Discharge Attestation: The patient and all family members were given an opportunity to ask questions and understood the discharge instructions. Discharge instructions specifically effects, indications for sooner follow up or return to the emergency department, and the expected course of current diagnosis. Patient condition: Stable Discharge Plan Plan Patient Disposition: HOME (Self Care) Patient condition on transfer: Stable Prescriptions/Referrals Prescriptions/Med Rec: No Action quetiapine [Seroquel] 50 mg Tablet 50 mg PO HS azithromycin 500 mg tablet See Rx Instructions .ROUTE .COMPLEX Qty: 6 0RF Rx Instructions: take 500 mg today (day 1), then 250 mg for 4 days (days 2-5) acetaminophen 325 mg capsule 650 mg PO Q8HR PRN (Reason: pain) Qty: 30 0RF acetaminophen 500 mg capsule 1,000 mg PO Q8HR PRN (Reason: pain) Qty: 30 0RF mupirocin 2 % ointment 1 applic topical BID Qty: 15 0RF diphenhydramine HCl [Benadryl Allergy] 25 mg tablet 25 mg PO TID PRN (Reason: itching) 10 Days Qty: 30 0RF divalproex 500 mg tablet extended release 24 hr 2,000 mg PO DAILY Patient Comments: TAKE 4 TABLETS BY MOUTH AT BEDTIME FOR FOURTEEN DAYS acetaminophen [Tylenol Extra Strength] 500 mg tablet 1,000 mg PO Q6H PRN (Reason: pain) Qty: 30 0RF acetaminophen 500 mg tablet 1,000 mg PO Q8HR PRN (Reason: pain) Qty: 30 0RF acetaminophen 500 mg capsule 1,000 mg PO Q8HR PRN (Reason: pain) Qty: 30 0RF bacitracin 500 unit/gram ointment 1 applic topical TID Qty: 28 0RF Referrals: Hal Yeung MD [Physician] - In 1 week Problem List Clinical Impression: Headache Patient/Caregiver Discharge Instructions Education Materials: Self-Care for Headaches Print Language: Cymraes Stand Alone Forms: Paola Award Info., Patient Portal Info Letter PA/STOCKLAYER Supervising Physician PA/STOCKLAYER Supervising Physician: Everardo Espinoza ENP
[2024-12-06] MEDS: ACETAMINOPHEN 325 MG TABLET 650 MG PO (07:36)
[2024-12-06] MEDS: METOCLOPRAMIDE LIQD 10 MG/10 ML UDC PO (07:37)
== END 2024-12-06 08:23 | disposition home or self-care (01) ==
LOC: SERX 07:45
PROVIDERS: Emergency Provider Family Medicine; PCP Nurse Practitioner Family
DX: R51.9 Headache, unspecified (principal)
CPT/HCPCS: 99282; A9270

== ENCOUNTER 2024-12-11 19:04 | Emergency (ER) | payer MEDICAID, SELFPAY ==
[2024-12-11 19:05] VITALS: BMI 23.3
[2024-12-11 19:17] VITALS: BP 137/73; PULSE 80; RESP 18; TEMP 37.1; O2SAT 95
--- NOTE | 2024-12-11 19:33 | XR_ITS ---
Examination: Testicular sonography complete TECHNIQUE: Lord scale sonographic images testes, assessment arterial inflow venous outflow Doppler spectrum analysis color flow analysis Date and time: December 11, 2024, 2015 hours INDICATIONS: Left testicular pain beginning 2.5 years ago COMPARISON: November 24, 2024 FINDINGS: Right testis is 4.6 cm epididymis 1.1 cm Arterial flow to the testicle. No testicular mass Left testis 4.5 cm epididymis 1.5 cm Arterial flow to the testicle No testicular Mass. Moderate varicocele IMPRESSION: No testicular torsion or testicular Mass. Moderate left varicocele
--- NOTE | 2024-12-11 19:36 | PD.EDMALE ---
ED Male Genitalurinary RME/HPI General Chief complaint: Urogenital-Male Stated complaint: hydrocelle in groin/testicle Time Seen by Provider: 12/11/24 19:33 Arrival date/time: 12/11/24 19:04 44M with history of homelessness, drug use, HTN, and migraines presents to ED with several weeks of L testicular pain, worse in the past 4 days. Patient denies penile discharge and dysuria. Patient had US done 2 weeks ago that showed L hydrocele and varicocele with clean UA. Limitations: no limitations Related Data Home Medications ?Medication ?Instructions ?Recorded ?Confirmed quetiapine 50 mg tablet (Seroquel) 50 mg PO HS 10/23/19 06/20/22 divalproex 500 mg tablet,extended 2,000 mg PO DAILY 06/20/22 06/20/22 release 24 hr Previous Rx's ?Medication ?Instructions ?Recorded azithromycin 500 mg tablet See Rx Instructions PO .COMPLEX #6 08/11/22 tabs acetaminophen 500 mg tablet 1,000 mg (2 x 500 mg) PO Q6H PRN 05/03/24 (Tylenol Extra Strength) pain #30 tabs acetaminophen 500 mg tablet 1,000 mg (2 x 500 mg) PO Q8HR PRN 10/07/24 pain #30 tabs acetaminophen 500 mg capsule 1,000 mg (2 x 500 mg) PO Q8HR PRN 10/08/24 pain #30 caps acetaminophen 325 mg capsule 650 mg (2 x 325 mg) PO Q8HR PRN 11/02/24 pain #30 caps acetaminophen 500 mg capsule 1,000 mg (2 x 500 mg) PO Q8HR PRN 11/16/24 pain #30 caps mupirocin 2 % topical ointment 1 applic topical BID #15 grams 11/27/24 bacitracin 500 unit/gram topical 1 applic topical TID #28 grams 12/03/24 ointment Allergies Allergy/AdvReac Type Severity Reaction Status Date / Time naproxen Allergy Severe HIVES Verified 12/06/24 06:36 ibuprofen AdvReac Severe ULCER Verified 12/06/24 06:36 BLEEDS tramadol HCl AdvReac Severe UNABLE TO Verified 12/06/24 06:36 URINATE Review of Systems Review of Systems Systems Reviewed: All systems reviewed, normal except as documented Constitutional Constitutional: Reports system reviewed and no additional complaints, except as documented, Denies fever(s) and Denies headache(s) ENT Ears, Nose, Mouth, and Throat: Denies disequilibrium and Denies headache(s) Cardiovascular Cardiovascular: Reports system reviewed and no additional complaints, except as documented, Denies chest pain and Denies dyspnea Respiratory Respiratory: Reports system reviewed and no additional complaints, except as documented, Denies cough and Denies dyspnea Gastrointestinal Gastrointestinal: Reports system reviewed and no additional complaints, except as documented, Denies abdominal pain, Denies nausea and Denies vomiting Genitourinary Genitourinary: Reports as per HPI and Reports testicular pain Neurologic Neurologic: Reports system reviewed and no additional complaints, except as documented, Denies confusion, Denies disequilibrium and Denies headache(s) Psychiatric Psychiatric: Denies confusion Past Medical History Past Medical History NEUROLOGIC: Negative Neurological Disorders CARDIAC: Positive Hypertension; Negative Cardiac Disorders or Congestive Heart Failure RESPIRATORY: Negative Chronic Obstructive Pulmonary Disease (COPD) GASTROINTESTINAL: Positive Gastrointestinal Disorders and Ulcer GENITOURINARY: Positive Genitourinary Disorders; Negative Renal Disease ENDOCRINE: Negative Diabetes Mellitus Type 1 or Diabetes Mellitus Type 2 PSYCHO/SOCIAL: Positive Bipolar Disorder Family History FAMILY HISTORY: Negative Family Cardiac Disorders Social History SMOKING STATUS: Never smoker SUBSTANCE USE: marijuana ED Exam General Limitations: Present no limitations General appearance: Present alert and in no apparent distress Head Head exam: Present atraumatic Eye Eye exam: Present normal appearance, PERRL and EOMI ENT ENT exam: Present normal exam, normal oropharynx and mucous membranes moist Neck Neck exam: Present normal inspection, full ROM and trachea midline Chest Chest inspection: Present normal inspection and symmetric chest wall rise Respiratory Respiratory exam: Present normal lung sounds bilaterally Cardiovascular Cardiovascular exam: Present regular rate, normal rhythm and normal heart sounds Abdominal Exam Abdominal exam: Present soft and normal bowel sounds Extremities Exam Extremities exam: Present normal inspection and full ROM Back Exam Back exam: Present normal inspection and full ROM Neurological Exam Neurological exam: Present alert, oriented X3 and CN II-XII intact Psychiatric Psychiatric exam: Present normal affect and normal mood Skin Skin exam: Present warm, dry, intact and normal color Course Quality Measures none Orders Category Date Time Status US testicular Stat Exams 12/11/24 19:33 Completed Chlamydia/GC/TV - PCR Stat Lab 12/11/24 20:28 Received Urinalysis Stat Lab 12/11/24 20:28 Completed Urine Culture Stat Lab 12/11/24 20:28 Received Acetaminophen Tab [Tylenol ES Tab] Med 12/11/24 19:39 Discontinued 1,000 mg PO X1 ONE Vital Signs Vital signs: Vital Signs Temperature 98.7 F 12/11/24 19:17 Pulse Rate 80 12/11/24 19:17 Respiratory Rate 18 12/11/24 19:17 Blood Pressure 137/73 H 12/11/24 19:17 Pulse Oximetry (%) 95 12/11/24 19:17 Oxygen Delivery Method Room Air 12/11/24 19:17 O2 at 95% on RA and WNLs Urogenital - Male MDM Narrative MDM Narrative:: 44M with history of homelessness, drug use, HTN, and migraines presents to ED with several weeks of L testicular pain, worse in the past 4 days. Patient denies penile discharge and dysuria. Patient had US done 2 weeks ago that showed L hydrocele and varicocele with clean UA. Patient deferred genital exam. Patient is afebrile, calm, and alert. US varicocele. UA clean. UC and GC pending at time of DC. Patient data External records reviewed:: [facility] previous records Clinical information provided by:: patient Social determinants that could affect healthcare access:: housing Patient has the following chronic illnesses:: homelessness, drug use, HTN, and migraines How is presenting disease/condition affected by chronic disease/condition?: exacerbated by Evaluation data The following diagnostics were reviewed and interpreted by me:: lab results and radiology exam(s) Lab and/or radiology exams considered but not ordered:: ordered Interpretation Summary: above Medications / Prescriptions Medications or Prescriptions considered but not ordered:: ordered Medication administrations:: Medication Administration History Discontinued Medications Acetaminophen (Acetaminophen 500 Mg Tablet) 1,000 mg PO X1 ONE Stop: 12/11/24 19:40 Last Admin: 12/11/24 20:15 Dose: 1,000 mg Documented By: OA above Consultations Consultation(s) initiated? (list below): No Diagnosis Urogenital Male Differential Diagnosis: urinary tract infection, priapism, urethritis, epididymitis, genital herpes simplex, prostatitis, acute retention of urine, inguinal hernia and other (varicocele) Most likely diagnosis given after review of the tests above:: varicocele Admission Indicated Admission indicated?: not indicated Admission Request Was there a request for admission?: No Disposition Plan Disposition Plan: Discharge Discharge Attestation Discharge Attestation: The patient and all family members were given an opportunity to ask questions and understood the discharge instructions. Discharge instructions specifically effects, indications for sooner follow up or return to the emergency department, and the expected course of current diagnosis. Patient condition: Stable Discharge Plan Plan Patient Disposition: HOME (Self Care) Discharge Disposition comment: Stable Prescriptions/Referrals Prescriptions/Med Rec: No Action quetiapine [Seroquel] 50 mg Tablet 50 mg PO HS azithromycin 500 mg tablet See Rx Instructions .ROUTE .COMPLEX Qty: 6 0RF Rx Instructions: take 500 mg today (day 1), then 250 mg for 4 days (days 2-5) acetaminophen 325 mg capsule 650 mg PO Q8HR PRN (Reason: pain) Qty: 30 0RF acetaminophen 500 mg capsule 1,000 mg PO Q8HR PRN (Reason: pain) Qty: 30 0RF mupirocin 2 % ointment 1 applic topical BID Qty: 15 0RF divalproex 500 mg tablet extended release 24 hr 2,000 mg PO DAILY Patient Comments: TAKE 4 TABLETS BY MOUTH AT BEDTIME FOR FOURTEEN DAYS acetaminophen [Tylenol Extra Strength] 500 mg tablet 1,000 mg PO Q6H PRN (Reason: pain) Qty: 30 0RF acetaminophen 500 mg tablet 1,000 mg PO Q8HR PRN (Reason: pain) Qty: 30 0RF acetaminophen 500 mg capsule 1,000 mg PO Q8HR PRN (Reason: pain) Qty: 30 0RF bacitracin 500 unit/gram ointment 1 applic topical TID Qty: 28 0RF Referrals: No Primary/Family,Physician [Primary Care Provider] - In 1 week Problem List Clinical Impression: Left varicocele Patient/Caregiver Discharge Instructions Education Materials: Treating Varicocele, ED Varicocele Additional Instructions: Please follow-up with PCP within 24-48 hours and return immediately if symptoms worsen. If problem persists, see urologist. Print Language: Congolese Stand Alone Forms: Patient Portal Info Letter FORYLAN/LUI Supervising Physician FROYLAN/LUI Supervising Physician: Dr. Amanda
[2024-12-11] MEDS: ACETAMINOPHEN 500 MG TABLET 1000 MG PO (20:15)
[2024-12-11 21:31] LABS: Collection Type, Urine Clean Catch
[2024-12-11 21:40] LABS: Bilirubin,Urine Negative (Negative); Blood,Urine Negative (Negative); Clarity,Urine Clear (Clear/Hazy); Color,Urine Lt-Yellow (Lt Yel-Yel); Glucose, Urine Negative (Negative); Ketones,Urine Negative (Negative); Leukocyte Esterase,Urine Negative (Negative); Nitrite,Urine Negative (Negative); PH,Urine 6.0 (5.0-7.0); Protein,Urine Negative (Neg - Trace); RBC,Urine 3 /hpf (0-3); Specific Gravity,Urine 1.023 (1.001-1.035); Squamous Epithelial Cell,Urine < 1 /hpf (0-5); Urobilinogen,Urine Negative mg/dL (0.0-1.0); WBC,Urine < 1 /hpf (0-5)
[2024-12-12 09:45] LABS: Chlamydia trachomatis PCR Negative (Not Detect); Neisseria Gonorrhoeae DNA PCR Negative (Not Detect); Trichomonas Negative (Negative)
== END 2024-12-11 22:18 | disposition home or self-care (01) ==
PROVIDERS: Physician Assistant; Emergency Provider Emergency Medicine
DX: I86.1 Scrotal varices (principal); Z59.00 Homelessness unspecified; I10 Essential (primary) hypertension
CPT/HCPCS: 76870; 81001; 87086; 87491; 87591; 87661; 99283; A9270

== ENCOUNTER 2024-12-13 03:57 | Emergency (ER) | payer MEDICAID, SELFPAY ==
[2024-12-13 03:58] VITALS: BMI 21.9
[2024-12-13 04:33] VITALS: BP 122/76; PULSE 87; RESP 18; TEMP 37; O2SAT 96
[2024-12-13] MEDS: ACETAMINOPHEN 500 MG TABLET 1000 MG PO (05:02)
--- NOTE | 2024-12-13 05:35 | PD.EDMALE ---
ED Male Genitalurinary RME/HPI General Chief complaint: Urogenital-Male Stated complaint: LEFT TESTICLE PAIN Time Seen by Provider: 12/13/24 04:52 Arrival date/time: 12/13/24 03:57 44M with history of homelessness, drug use, HTN, and migraines presents to ED with several weeks of L testicular pain, worse in the past 4 days. Patient was here yesterday for this with varicocele on UA. No change in pain. Limitations: no limitations Related Data Home Medications ?Medication ?Instructions ?Recorded ?Confirmed quetiapine 50 mg tablet (Seroquel) 50 mg PO HS 10/23/19 06/20/22 divalproex 500 mg tablet,extended 2,000 mg PO DAILY 06/20/22 06/20/22 release 24 hr Previous Rx's ?Medication ?Instructions ?Recorded azithromycin 500 mg tablet See Rx Instructions PO .COMPLEX #6 08/11/22 tabs acetaminophen 500 mg tablet 1,000 mg (2 x 500 mg) PO Q6H PRN 05/03/24 (Tylenol Extra Strength) pain #30 tabs acetaminophen 500 mg tablet 1,000 mg (2 x 500 mg) PO Q8HR PRN 10/07/24 pain #30 tabs acetaminophen 500 mg capsule 1,000 mg (2 x 500 mg) PO Q8HR PRN 10/08/24 pain #30 caps acetaminophen 325 mg capsule 650 mg (2 x 325 mg) PO Q8HR PRN 11/02/24 pain #30 caps acetaminophen 500 mg capsule 1,000 mg (2 x 500 mg) PO Q8HR PRN 11/16/24 pain #30 caps mupirocin 2 % topical ointment 1 applic topical BID #15 grams 11/27/24 bacitracin 500 unit/gram topical 1 applic topical TID #28 grams 12/03/24 ointment acetaminophen 500 mg tablet 500 mg PO QID PRN fever or pain 12/13/24 (Acetaminophen Pain Relief) #30 tabs Allergies Allergy/AdvReac Type Severity Reaction Status Date / Time naproxen Allergy Severe HIVES Verified 12/13/24 04:00 ibuprofen AdvReac Severe ULCER Verified 12/13/24 04:00 BLEEDS tramadol HCl AdvReac Severe UNABLE TO Verified 12/13/24 04:00 URINATE Review of Systems Review of Systems Systems Reviewed: All systems reviewed, normal except as documented Constitutional Constitutional: Reports system reviewed and no additional complaints, except as documented, Denies fever(s) and Denies headache(s) ENT Ears, Nose, Mouth, and Throat: Denies disequilibrium and Denies headache(s) Cardiovascular Cardiovascular: Reports system reviewed and no additional complaints, except as documented, Denies chest pain and Denies dyspnea Respiratory Respiratory: Reports system reviewed and no additional complaints, except as documented, Denies cough and Denies dyspnea Gastrointestinal Gastrointestinal: Reports system reviewed and no additional complaints, except as documented, Denies abdominal pain, Denies nausea and Denies vomiting Genitourinary Genitourinary: Reports as per HPI and Reports testicular pain Neurologic Neurologic: Reports system reviewed and no additional complaints, except as documented, Denies confusion, Denies disequilibrium and Denies headache(s) Psychiatric Psychiatric: Denies confusion Past Medical History Past Medical History NEUROLOGIC: Negative Neurological Disorders CARDIAC: Positive Hypertension; Negative Cardiac Disorders or Congestive Heart Failure RESPIRATORY: Negative Chronic Obstructive Pulmonary Disease (COPD) GASTROINTESTINAL: Positive Gastrointestinal Disorders and Ulcer GENITOURINARY: Positive Genitourinary Disorders; Negative Renal Disease ENDOCRINE: Negative Diabetes Mellitus Type 1 or Diabetes Mellitus Type 2 PSYCHO/SOCIAL: Positive Bipolar Disorder Family History FAMILY HISTORY: Negative Family Cardiac Disorders Social History SMOKING STATUS: Former smoker SUBSTANCE USE: marijuana ED Exam General Limitations: Present no limitations General appearance: Present alert and in no apparent distress Head Head exam: Present atraumatic Eye Eye exam: Present normal appearance, PERRL and EOMI ENT ENT exam: Present normal exam, normal oropharynx and mucous membranes moist Neck Neck exam: Present normal inspection, full ROM and trachea midline Chest Chest inspection: Present normal inspection and symmetric chest wall rise Respiratory Respiratory exam: Present normal lung sounds bilaterally Cardiovascular Cardiovascular exam: Present regular rate, normal rhythm and normal heart sounds Abdominal Exam Abdominal exam: Present soft and normal bowel sounds Extremities Exam Extremities exam: Present normal inspection and full ROM Back Exam Back exam: Present normal inspection and full ROM Neurological Exam Neurological exam: Present alert, oriented X3 and CN II-XII intact Psychiatric Psychiatric exam: Present normal affect and normal mood Skin Skin exam: Present warm, dry, intact and normal color Course Quality Measures none Orders Category Date Time Status Acetaminophen Tab [Tylenol ES Tab] Med 12/13/24 04:53 Discontinued 1,000 mg PO X1 ONE Vital Signs Vital signs: Vital Signs Temperature 98.6 F 12/13/24 04:33 Pulse Rate 87 12/13/24 04:33 Respiratory Rate 18 12/13/24 04:33 Blood Pressure 122/76 12/13/24 04:33 Pulse Oximetry (%) 96 12/13/24 04:33 Oxygen Delivery Method Room Air 12/13/24 04:33 O2 at 96% on RA and WNLs Urogenital - Male MDM Narrative MDM Narrative:: 44M with history of homelessness, drug use, HTN, and migraines presents to ED with several weeks of L testicular pain, worse in the past 4 days. Patient was here yesterday for this with varicocele on UA. No change in pain. Patient deferred genital exam. Patient is afebrile, calm, and alert. GC from yesterday was neg. Meds and consumer credit counselor given. Patient data External records reviewed:: [facility] previous records Clinical information provided by:: patient Social determinants that could affect healthcare access:: housing Patient has the following chronic illnesses:: homelessness, drug use, HTN, and migraines How is presenting disease/condition affected by chronic disease/condition?: exacerbated by Evaluation data The following diagnostics were reviewed and interpreted by me:: other (specify) (none) Lab and/or radiology exams considered but not ordered:: not ordered Interpretation Summary: n/a Medications / Prescriptions Medications or Prescriptions considered but not ordered:: ordered Medication administrations:: Medication Administration History Discontinued Medications Acetaminophen (Acetaminophen 500 Mg Tablet) 1,000 mg PO X1 ONE Stop: 12/13/24 04:54 Last Admin: 12/13/24 05:02 Dose: 1,000 mg Documented By: CB above Consultations Consultation(s) initiated? (list below): No Diagnosis Urogenital Male Differential Diagnosis: urinary tract infection, priapism, urethritis, epididymitis, genital herpes simplex, prostatitis, acute retention of urine and inguinal hernia Most likely diagnosis given after review of the tests above:: varicocele Admission Indicated Admission indicated?: not indicated Admission Request Was there a request for admission?: No Disposition Plan Disposition Plan: Discharge Discharge Attestation Discharge Attestation: The patient and all family members were given an opportunity to ask questions and understood the discharge instructions. Discharge instructions specifically effects, indications for sooner follow up or return to the emergency department, and the expected course of current diagnosis. Patient condition: Stable Discharge Plan Plan Patient Disposition: HOME (Self Care) Discharge Disposition comment: Stable Prescriptions/Referrals Prescriptions/Med Rec: New acetaminophen [Acetaminophen Pain Relief] 500 mg tablet 500 mg PO QID PRN (Reason: fever or pain) Qty: 30 0RF No Action quetiapine [Seroquel] 50 mg Tablet 50 mg PO HS azithromycin 500 mg tablet See Rx Instructions .ROUTE .COMPLEX Qty: 6 0RF Rx Instructions: take 500 mg today (day 1), then 250 mg for 4 days (days 2-5) acetaminophen 325 mg capsule 650 mg PO Q8HR PRN (Reason: pain) Qty: 30 0RF acetaminophen 500 mg capsule 1,000 mg PO Q8HR PRN (Reason: pain) Qty: 30 0RF mupirocin 2 % ointment 1 applic topical BID Qty: 15 0RF divalproex 500 mg tablet extended release 24 hr 2,000 mg PO DAILY Patient Comments: TAKE 4 TABLETS BY MOUTH AT BEDTIME FOR FOURTEEN DAYS acetaminophen [Tylenol Extra Strength] 500 mg tablet 1,000 mg PO Q6H PRN (Reason: pain) Qty: 30 0RF acetaminophen 500 mg tablet 1,000 mg PO Q8HR PRN (Reason: pain) Qty: 30 0RF acetaminophen 500 mg capsule 1,000 mg PO Q8HR PRN (Reason: pain) Qty: 30 0RF bacitracin 500 unit/gram ointment 1 applic topical TID Qty: 28 0RF Problem List Clinical Impression: Varicocele Patient/Caregiver Discharge Instructions Education Materials: ED Varicocele Additional Instructions: Please follow-up with PCP within 24-48 hours and return immediately if symptoms worsen. Print Language: Vietnamese Stand Alone Forms: Patient Portal Info Letter FROYLAN/LUI Supervising Physician FROYLAN/LUI Supervising Physician: Dr. Amanda
== END 2024-12-13 05:03 | disposition home or self-care (01) ==
LOC: SERX 05:48
PROVIDERS: Emergency Provider Emergency Medicine; PCP Nurse Practitioner Family
DX: I86.1 Scrotal varices (principal); I10 Essential (primary) hypertension; Z59.00 Homelessness unspecified
CPT/HCPCS: 99282; A9270

== ENCOUNTER 2024-12-15 05:36 | Emergency (ER) | payer MEDICAID, SELFPAY ==
[2024-12-15 05:37] VITALS: BMI 23.3
[2024-12-15 06:13] VITALS: BP 142/75; PULSE 72; RESP 18; TEMP 36.9; O2SAT 98
--- NOTE | 2024-12-15 06:18 | XR_ITS ---
Examination: CT abdomen and pelvis without contrast. Coronal 3-D reconstructions. Sagittal 2-D reconstructions. Date and time of exam:December 15, 2024, 0636 hours, comparison December 23, 2023. INDICATIONS: Left abdominal and left testicular pain beginning 2 years ago, moderate left varicocele with testicular sonogram December 11, 2024 CTDI: vol (mGy): 4.56 DLP: (mGycm): 264 Technique: Axial images of the abdomen have been obtained, 3 mm slice thickness Intravenous contrast material has not been administered. Low dose protocols were performed. One or more of the following dose reduction techniques were used; automated exposure control, adjustment of the mA and/or KV according to patient size, use of iterative reconstruction technique. Findings: No focal liver or splenic lesion Contracted gallbladder No pancreatic mass No renal or ureteral calculi, no hydronephrosis Aortic calcification no aneurysmal dilatation Normal appendix No pericecal inflammatory changes No bowel obstruction Contracted urinary bladder The osseous structures are intact IMPRESSION: No renal or ureteral calculi, no hydronephrosis No CT findings of appendicitis bowel obstruction or diverticulitis
--- NOTE | 2024-12-15 06:21 | PD.EDRME ---
Rapid Medical Screening Exam RME Arrival date/time: 12/15/24 05:36 Chief Complaint: Urogenital-Male Time Seen by Provider: 12/15/24 06:08 Vital signs: Vital Signs Temperature 98.4 F 12/15/24 06:13 Pulse Rate 72 12/15/24 06:13 Respiratory Rate 18 12/15/24 06:13 Blood Pressure 142/75 H 12/15/24 06:13 Pulse Oximetry (%) 98 12/15/24 06:13 Oxygen Delivery Method Room Air 12/15/24 06:13 Vital signs reviewed by provider: Yes RME Narrative: Patient is a 44-year-old male with medical history notable for hydrocele to the emergency primary concerns for left testicular pain as well as left flank pain. Also associated chills. Denies nausea vomiting cough runny nose abdominal pain however does endorse left flank pain. Endorses dysuria, and difficulty with at times initiating urinary stream. Patient is pending follow-up with a urologist. Endorses left flank pain. Patient smokes marijuana, does not drink alcohol no other substances. No history of IV drug use. No fever nausea vomiting abdominal pain melena bloody stools. No discharge from his penis. However does endorse some blood in his urine.
[2024-12-15] MEDS: HYDROcodone/APAP 5/325 TABLET 1 TAB PO (06:40)
[2024-12-15 06:46] LABS: Basophils # (Auto) 0.0 Thou/mm3 (0.0-0.2); Basophils % (Auto) 0 % (0-2.5); Eosinophils # (Auto) 0.4 Thou/mm3 (0.0-0.5); Eosinophils % (Auto) 3 % (0-10); Hematocrit 37.7 % (41.0-53.0); Hemoglobin 12.7 g/dL (13.5-16.0); Immature Granulocytes Auto 0.04 Thou/mm3 (0.00-0.00); Lymphocytes # (Auto) 1.8 Thou/mm3 (1.0-4.8); Lymphocytes % (Auto) 14 % (10-50); Mean Corpuscular HGB Conc 33.7 g/dl (31.0-37.0); Mean Corpuscular Hemoglobin 30.6 pg (25.0-35.0); Mean Corpuscular Volume 91 fL (80-100); Monocytes # (Auto) 0.9 Thou/mm3 (0.0-0.8); Monocytes % (Auto) 7 % (0-12); Neutrophils # (Auto) 9.9 Thou/mm3 (1.8-7.7); Neutrophils % (Auto) 76 % (37-80); Nucleated Red Blood Cell # 0.00 Thou/mm3 (0.00-0.00); Nucleated Red Blood Cell % 0 /100 WBC (0); Platelet Count 230 Thou/mm3 (140-440); RDW Standard Deviation 45.4 fL (35.1-43.9); Red Blood Count 4.15 Miln/mm3 (4.50-5.90); White Blood Count 13.0 Thou/mm3 (3.8-10.6)
[2024-12-15 06:58] LABS: Alanine Aminotransferase 15 U/L (10-49); Albumin, Serum 3.9 gm/dL (3.5-5.0); Albumin/Globulin Ratio 2.0 (1.2-2.2); Alkaline Phosphatase 94 U/L (46-116); Anion Gap 8 (7-16); Aspartate Amino Transferase 15 U/L (0-34); BUN/Creatinine Ratio 13 Ratio (12-20); Bilirubin,Total 0.2 mg/dL (0.3-1.2); Blood Urea Nitrogen 12 mg/dL (9-23); Calcium 9.3 mg/dL (8.3-10.6); Calcium (Corrected) 9.4 mg/dL (8.5-10.1); Carbon Dioxide 29.4 mMol/L (20.0-31.0); Chloride 108 mMol/L (98-107); Creatinine (Component) 0.9 mg/dL (0.6-1.3); Estimated Creatinine Clearance 92.1 mL/min (>60); Globulin 2.0 gm/dL (2.3-3.5); Glucose 74 mg/dL (74-106); Lipase 67 U/L (12-53); Osmolality,Calculated 287 (275-295); Potassium 3.7 mMol/L (3.4-5.1); Sodium 145 mMol/L (136-145); Total Protein 5.9 gm/dL (5.7-8.2); eGFR > 60 See Note
--- NOTE | 2024-12-15 07:50 | PD.EDMALE ---
ED Male Genitalurinary RME/HPI General Chief complaint: Urogenital-Male Stated complaint: LEFT TESTICLE PAIN Time Seen by Provider: 12/15/24 06:08 Arrival date/time: 12/15/24 05:36 Limitations: no limitations RME / HPI RME / HPI Narrative: Patient is a 44-year-old male with medical history notable for hydrocele to the emergency primary concerns for left testicular pain as well as left flank pain. Also associated chills. Denies nausea vomiting cough runny nose abdominal pain however does endorse left flank pain. Endorses dysuria, and difficulty with at times initiating urinary stream. Patient is pending follow-up with a urologist. Endorses left flank pain. Patient smokes marijuana, does not drink alcohol no other substances. No history of IV drug use. No fever nausea vomiting abdominal pain melena bloody stools. No discharge from his penis. However does endorse some blood in his urine. DR. AMARI CALHOUN ED EVALUATION 44 year old male with known history of left varicocele presents to the for complaint of left testicular pain today. Reports having intermittent left testicular pain for 2 years and in the process of being referred to a specialist to have the varicocele removed. Pain today is sharp stabbing in nature that is similar and unchanged from previous episodes of pain. Rating as moderate. Patient reports he was evaluated here 2 days ago for similar pain that had improved with Tylenol. Denies fevers, chills, or changes in urinary habits. Related Data Home Medications ?Medication ?Instructions ?Recorded ?Confirmed quetiapine 50 mg tablet (Seroquel) 50 mg PO HS 10/23/19 06/20/22 divalproex 500 mg tablet,extended 2,000 mg PO DAILY 06/20/22 06/20/22 release 24 hr Previous Rx's ?Medication ?Instructions ?Recorded azithromycin 500 mg tablet See Rx Instructions PO .COMPLEX #6 08/11/22 tabs acetaminophen 500 mg tablet 1,000 mg (2 x 500 mg) PO Q6H PRN 05/03/24 (Tylenol Extra Strength) pain #30 tabs acetaminophen 500 mg tablet 1,000 mg (2 x 500 mg) PO Q8HR PRN 10/07/24 pain #30 tabs acetaminophen 500 mg capsule 1,000 mg (2 x 500 mg) PO Q8HR PRN 06/17/25 pain #30 caps acetaminophen 325 mg capsule 650 mg (2 x 325 mg) PO Q8HR PRN 11/02/24 pain #30 caps acetaminophen 500 mg capsule 1,000 mg (2 x 500 mg) PO Q8HR PRN 11/16/24 pain #30 caps mupirocin 2 % topical ointment 1 applic topical BID #15 grams 11/27/24 bacitracin 500 unit/gram topical 1 applic topical TID #28 grams 12/03/24 ointment acetaminophen 500 mg tablet 500 mg PO QID PRN fever or pain 12/13/24 (Acetaminophen Pain Relief) #30 tabs Allergies Allergy/AdvReac Type Severity Reaction Status Date / Time naproxen Allergy Severe HIVES Verified 12/13/24 04:00 ibuprofen AdvReac Severe ULCER Verified 12/13/24 04:00 BLEEDS tramadol HCl AdvReac Severe UNABLE TO Verified 12/13/24 04:00 URINATE Review of Systems Review of Systems Systems Reviewed: All systems reviewed, normal except as documented Past Medical History Past Medical History CARDIAC: Positive Hypertension GASTROINTESTINAL: Positive Gastrointestinal Disorders and Ulcer GENITOURINARY: Positive Genitourinary Disorders PSYCHO/SOCIAL: Positive Bipolar Disorder Family History FAMILY HISTORY: Negative Family Cardiac Disorders Social History SMOKING STATUS: Current some day smoker SUBSTANCE USE: marijuana ED Exam General Limitations: Present no limitations General appearance: Present alert and in no apparent distress Head Head exam: Present atraumatic Eye Eye exam: Present normal appearance, PERRL and EOMI ENT ENT exam: Present normal exam, normal oropharynx and mucous membranes moist Neck Neck exam: Present normal inspection, full ROM and trachea midline Chest Chest inspection: Present normal inspection and symmetric chest wall rise Respiratory Respiratory exam: Present normal lung sounds bilaterally Cardiovascular Cardiovascular exam: Present regular rate, normal rhythm and normal heart sounds Abdominal Exam Abdominal exam: Present soft and normal bowel sounds exam: Present other (Enlargement of the left testicle, no inguinal hernia, no penile discharge) Extremities Exam Extremities exam: Present normal inspection and full ROM Back Exam Back exam: Present normal inspection and full ROM Neurological Exam Neurological exam: Present alert, oriented X3 and CN II-XII intact Psychiatric Psychiatric exam: Present normal affect and normal mood Skin Skin exam: Present warm, dry, intact and normal color Course Quality Measures none Orders Category Date Time Status CT abdomen pelvis wo con Stat Exams 12/15/24 06:18 Completed CBC [CBC] Stat Lab 12/15/24 06:25 Completed CMP [Comprehensive Metabolic Panel] Stat Lab 12/15/24 06:25 Completed Chlamydia/GC/TV - PCR Stat Lab 12/15/24 07:53 Stop Req Lipase Stat Lab 12/15/24 06:25 Completed UA, C/S IF [Urinalysis, C/S if Indicated] Stat Lab 12/15/24 07:53 Completed HYDROcodone*/APAP 5/325 [[place] 5/325] Med 12/15/24 06:18 Discontinued 1 tab PO X1 ONE Vital Signs Vital signs: Vital Signs Temperature 98.4 F 12/15/24 06:13 Pulse Rate 72 12/15/24 06:13 Respiratory Rate 18 12/15/24 06:13 Blood Pressure 142/75 H 12/15/24 06:13 Pulse Oximetry (%) 98 12/15/24 06:13 Oxygen Delivery Method Room Air 12/15/24 06:13 Pulse ox is 98% on room air which is adequate. Urogenital - Male MDM Narrative MDM Narrative:: Miriam Scott am scribing for and in the presence of Dr. Ovalles. Patient data External records reviewed:: [facility] previous records (I reviewed ED visit on 12/13/2024 ) Clinical information provided by:: patient Social determinants that could affect healthcare access:: none Patient has the following chronic illnesses:: Left varicocele How is presenting disease/condition affected by chronic disease/condition?: exacerbated by Evaluation data The following diagnostics were reviewed and interpreted by me:: lab results Lab and/or radiology exams considered but not ordered:: None Interpretation Summary: Ordering Physician: Anusha Fuller MD Date of Service: 12/15/24 Procedure(s): CT abdomen pelvis wo con Accession Number(s): [id number] cc: Brian Fuentes MD; NO PRIMARY/FAMILY,PHYSICIAN; Anusha Fuller MD~ Examination: CT abdomen and pelvis without contrast. Coronal 3-D reconstructions. Sagittal 2-D reconstructions. Date and time of exam:December 15, 2024, 0636 hours, comparison December 23, 2023. INDICATIONS: Left abdominal and left testicular pain beginning 2 years ago, moderate left varicocele with testicular sonogram December 11, 2024 CTDI: vol (mGy): 4.56 DLP: (mGycm): 264 Technique: Axial images of the abdomen have been obtained, 3 mm slice thickness Intravenous contrast material has not been administered. Low dose protocols were performed. One or more of the following dose reduction techniques were used; automated exposure control, adjustment of the mA and/or KV according to patient size, use of iterative reconstruction technique. Findings: No focal liver or splenic lesion Contracted gallbladder No pancreatic mass No renal or ureteral calculi, no hydronephrosis Aortic calcification no aneurysmal dilatation Normal appendix No pericecal inflammatory changes No bowel obstruction Contracted urinary bladder The osseous structures are intact IMPRESSION: No renal or ureteral calculi, no hydronephrosis No CT findings of appendicitis bowel obstruction or diverticulitis Dictated By: Brian Fuentes MD Signed By: <Electronically signed by Brian Fuentes MD in OV> 12/15/24 0658 Medications / Prescriptions Medications or Prescriptions considered but not ordered:: None Medication administrations:: Medication Administration History Discontinued Medications Hydrocodone Bitart/Acetaminophen (Hydrocodone/Apap 5/325 Tablet) 1 tab PO X1 ONE Stop: 12/15/24 06:19 Last Admin: 12/15/24 06:40 Dose: 1 tab Documented By: CB See above Consultations Consultation(s) initiated? (list below): No Diagnosis Urogenital Male Differential Diagnosis: urinary tract infection, inguinal hernia and other (varicocele ) Most likely diagnosis given after review of the tests above:: Left varicocele Admission Indicated Admission indicated?: not indicated Admission Request Was there a request for admission?: No Disposition Plan Disposition Plan: Discharge Discharge Attestation Discharge Attestation: The patient and all family members were given an opportunity to ask questions and understood the discharge instructions. Discharge instructions specifically effects, indications for sooner follow up or return to the emergency department, and the expected course of current diagnosis. Patient condition: Stable Discharge Plan Plan Patient Disposition: HOME (Self Care) Discharge Disposition comment: Stable for discharge home Patient condition on transfer: Stable Prescriptions/Referrals Prescriptions/Med Rec: No Action quetiapine [Seroquel] 50 mg Tablet 50 mg PO HS azithromycin 500 mg tablet See Rx Instructions .ROUTE .COMPLEX Qty: 6 0RF Rx Instructions: take 500 mg today (day 1), then 250 mg for 4 days (days 2-5) acetaminophen 325 mg capsule 650 mg PO Q8HR PRN (Reason: pain) Qty: 30 0RF acetaminophen 500 mg capsule 1,000 mg PO Q8HR PRN (Reason: pain) Qty: 30 0RF mupirocin 2 % ointment 1 applic topical BID Qty: 15 0RF acetaminophen [Acetaminophen Pain Relief] 500 mg tablet 500 mg PO QID PRN (Reason: fever or pain) Qty: 30 0RF divalproex 500 mg tablet extended release 24 hr 2,000 mg PO DAILY Patient Comments: TAKE 4 TABLETS BY MOUTH AT BEDTIME FOR FOURTEEN DAYS acetaminophen [Tylenol Extra Strength] 500 mg tablet 1,000 mg PO Q6H PRN (Reason: pain) Qty: 30 0RF acetaminophen 500 mg tablet 1,000 mg PO Q8HR PRN (Reason: pain) Qty: 30 0RF acetaminophen 500 mg capsule 1,000 mg PO Q8HR PRN (Reason: pain) Qty: 30 0RF bacitracin 500 unit/gram ointment 1 applic topical TID Qty: 28 0RF Referrals: [facility] [Provider Group] - In 1 week Problem List Clinical Impression: Left varicocele Patient/Caregiver Discharge Instructions Discharge Activity: activity as tolerated Education Materials: Treating Varicocele, What Is a Varicocele, ED Varicocele Additional Instructions: Please return to the emergency department if you have any worsening or any further medical problems and we will help you. Otherwise you should follow-up with your primary care doctor within the next several days. Be sure to call your urologist and make a follow-up appointment Print Language: [place] Islander Stand Alone Forms: [facility] Award Info., Patient Portal Info Letter
[2024-12-15 07:57] LABS: Collection Type, Urine Clean Catch; Squamous Epithelial Cell,Urine 0 /hpf (0-5)
[2024-12-15 08:03] LABS: Bilirubin,Urine Negative (Negative); Blood,Urine Negative (Negative); Clarity,Urine Clear (Clear/Hazy); Color,Urine Yellow (Lt Yel-Yel); Culture Indicated,Urine Not Indicated; Glucose, Urine Negative (Negative); Ketones,Urine Negative (Negative); Leukocyte Esterase,Urine Negative (Negative); Nitrite,Urine Negative (Negative); PH,Urine 6.0 (5.0-7.0); Protein,Urine Negative (Neg - Trace); RBC,Urine 1 /hpf (0-3); Specific Gravity,Urine 1.031 (1.001-1.035); Urobilinogen,Urine Negative mg/dL (0.0-1.0); WBC,Urine < 1 /hpf (0-5)
[2024-12-15 08:11] VITALS: BP 122/78; PULSE 63; RESP 18; TEMP 37.1; O2SAT 98
[2024-12-15 18:18] LABS: Chlamydia trachomatis PCR Negative (Not Detect); Neisseria Gonorrhoeae DNA PCR Negative (Not Detect); Trichomonas Negative (Negative)
== END 2024-12-15 08:15 | disposition home or self-care (01) ==
PROVIDERS: Emergency Medicine; Emergency Provider Emergency Medicine
DX: I86.1 Scrotal varices (principal)
CPT/HCPCS: 36415; 74176; 80053; 81001; 83690; 85025; 87491; 87591; 87661; 99283; A9270

== ENCOUNTER 2024-12-15 20:03 | Emergency (ER) | payer MEDICAID, SELFPAY ==
[2024-12-15 20:05] VITALS: BMI 23.3
[2024-12-15 21:13] VITALS: BP 100/70; PULSE 80; RESP 18; TEMP 37; O2SAT 95
--- NOTE | 2024-12-15 21:16 | XR_ITS ---
Examination: Testicular sonography complete TECHNIQUE: Lord scale sonographic images testes, assessment arterial and portal venous outflow Doppler spectrum analysis carpal analysis Date and time: December 15, 2024 2216 hours, comparison December 11, 2024 INDICATIONS: Left scrotal pain beginning 5 days ago FINDINGS: Right testis 4.7 cm epididymis not seen Arterial flow testicle. No testicular mass Left testis 4.7 cm epididymis 14 mm Arterial flow testicle. No testicular Mass. Moderate varicocele Minimal hydrocele IMPRESSION: No testicular torsion or testicular mass Moderate left varicocele
--- NOTE | 2024-12-15 21:17 | PD.EDRME ---
Rapid Medical Screening Exam RME Arrival date/time: 12/15/24 20:03 This is a case of a 44-year-old male with no medical history came in in the emergency room due to testicular pain for 4 days with painful urination no injury or trauma persistence of the symptoms thus patient decided to sought consult here in the emergency room Chief Complaint: Urogenital-Male Vital signs: Vital Signs Temperature 98.6 F 12/15/24 21:13 Pulse Rate 80 12/15/24 21:13 Respiratory Rate 18 12/15/24 21:13 Blood Pressure 100/70 12/15/24 21:13 Pulse Oximetry (%) 95 12/15/24 21:13 Oxygen Delivery Method Room Air 12/15/24 21:13
[2024-12-15 21:35] LABS: Basophils # (Auto) 0.1 Thou/mm3 (0.0-0.2); Basophils % (Auto) 0 % (0-2.5); Eosinophils # (Auto) 0.3 Thou/mm3 (0.0-0.5); Eosinophils % (Auto) 3 % (0-10); Hematocrit 36.1 % (41.0-53.0); Hemoglobin 12.3 g/dL (13.5-16.0); Immature Granulocytes Auto 0.05 Thou/mm3 (0.00-0.00); Lymphocytes # (Auto) 2.6 Thou/mm3 (1.0-4.8); Lymphocytes % (Auto) 21 % (10-50); Mean Corpuscular HGB Conc 34.1 g/dl (31.0-37.0); Mean Corpuscular Hemoglobin 30.8 pg (25.0-35.0); Mean Corpuscular Volume 91 fL (80-100); Monocytes # (Auto) 0.9 Thou/mm3 (0.0-0.8); Monocytes % (Auto) 8 % (0-12); Neutrophils # (Auto) 8.2 Thou/mm3 (1.8-7.7); Neutrophils % (Auto) 68 % (37-80); Nucleated Red Blood Cell # 0.00 Thou/mm3 (0.00-0.00); Nucleated Red Blood Cell % 0 /100 WBC (0); Platelet Count 207 Thou/mm3 (140-440); RDW Standard Deviation 45.4 fL (35.1-43.9); Red Blood Count 3.99 Miln/mm3 (4.50-5.90); White Blood Count 12.1 Thou/mm3 (3.8-10.6)
[2024-12-15 21:54] LABS: Alanine Aminotransferase 15 U/L (10-49); Albumin, Serum 4.0 gm/dL (3.5-5.0); Albumin/Globulin Ratio 1.9 (1.2-2.2); Alkaline Phosphatase 88 U/L (46-116); Anion Gap 6 (7-16); Aspartate Amino Transferase 16 U/L (0-34); BUN/Creatinine Ratio 14 Ratio (12-20); Bilirubin,Total 0.2 mg/dL (0.3-1.2); Blood Urea Nitrogen 10 mg/dL (9-23); Calcium 9.3 mg/dL (8.3-10.6); Calcium (Corrected) 9.3 mg/dL (8.5-10.1); Carbon Dioxide 29.3 mMol/L (20.0-31.0); Chloride 103 mMol/L (98-107); Creatinine (Component) 0.7 mg/dL (0.6-1.3); Estimated Creatinine Clearance 118.4 mL/min (>60); Globulin 2.1 gm/dL (2.3-3.5); Glucose 91 mg/dL (74-106); Osmolality,Calculated 274 (275-295); Potassium 3.4 mMol/L (3.4-5.1); Sodium 138 mMol/L (136-145); Total Protein 6.1 gm/dL (5.7-8.2); eGFR > 60 See Note
[2024-12-15 22:03] LABS: Collection Type, Urine Voided; RBC,Urine 0 /hpf (0-3); Squamous Epithelial Cell,Urine 0 /hpf (0-5)
[2024-12-15 22:07] LABS: Bilirubin,Urine Negative (Negative); Blood,Urine Negative (Negative); Clarity,Urine Clear (Clear/Hazy); Color,Urine Colorless (Lt Yel-Yel); Glucose, Urine Negative (Negative); Ketones,Urine Negative (Negative); Leukocyte Esterase,Urine Negative (Negative); Nitrite,Urine Negative (Negative); PH,Urine 6.5 (5.0-7.0); Protein,Urine Negative (Neg - Trace); Specific Gravity,Urine 1.004 (1.001-1.035); Urobilinogen,Urine Negative mg/dL (0.0-1.0); WBC,Urine < 1 /hpf (0-5)
[2024-12-15 23:21] VITALS: BP 103/63; PULSE 76; RESP 17; TEMP 37.1; O2SAT 97
--- NOTE | 2024-12-15 23:28 | PD.EDMALE ---
ED Male Genitalurinary RME/HPI General Chief complaint: Urogenital-Male Stated complaint: LEFT TESTICULAR PAIN Arrival date/time: 12/15/24 20:03 RME / HPI RME / HPI Narrative: 12/15/24 20:03 This is a case of a 44-year-old male with no medical history came in in the emergency room due to testicular pain for 4 days with painful urination no injury or trauma persistence of the symptoms thus patient decided to sought consult here in the emergency room Dr. Kruse?s Main ED Evaluation: 44yo male presents to the ED for a chief complaint of left testicular pain for the last few days. Patient has been having similar discomfort for the last few weeks and was concerned due to his pain persisting, so he came to the ED for evaluation. Patient denies any fever, chills, dysuria or any other associated symptoms. Related Data Home Medications ?Medication ?Instructions ?Recorded ?Confirmed quetiapine 50 mg tablet (Seroquel) 50 mg PO HS 10/23/19 06/20/22 divalproex 500 mg tablet,extended 2,000 mg PO DAILY 06/20/22 06/20/22 release 24 hr Previous Rx's ?Medication ?Instructions ?Recorded azithromycin 500 mg tablet See Rx Instructions PO .COMPLEX #6 08/11/22 tabs acetaminophen 500 mg tablet 1,000 mg (2 x 500 mg) PO Q6H PRN 05/03/24 (Tylenol Extra Strength) pain #30 tabs acetaminophen 500 mg tablet 1,000 mg (2 x 500 mg) PO Q8HR PRN 10/07/24 pain #30 tabs acetaminophen 500 mg capsule 1,000 mg (2 x 500 mg) PO Q8HR PRN 10/08/24 pain #30 caps acetaminophen 325 mg capsule 650 mg (2 x 325 mg) PO Q8HR PRN 11/02/24 pain #30 caps acetaminophen 500 mg capsule 1,000 mg (2 x 500 mg) PO Q8HR PRN 11/16/24 pain #30 caps mupirocin 2 % topical ointment 1 applic topical BID #15 grams 11/27/24 bacitracin 500 unit/gram topical 1 applic topical TID #28 grams 12/03/24 ointment acetaminophen 500 mg tablet 500 mg PO QID PRN fever or pain 12/13/24 (Acetaminophen Pain Relief) #30 tabs Allergies Allergy/AdvReac Type Severity Reaction Status Date / Time naproxen Allergy Severe HIVES Verified 12/15/24 20:04 ibuprofen AdvReac Severe ULCER Verified 12/15/24 20:04 BLEEDS tramadol HCl AdvReac Severe UNABLE TO Verified 12/15/24 20:04 URINATE Review of Systems Review of Systems Systems Reviewed: All systems reviewed, normal except as documented Past Medical History Past Medical History NEUROLOGIC: Negative Neurological Disorders CARDIAC: Positive Hypertension; Negative Cardiac Disorders or Congestive Heart Failure RESPIRATORY: Negative Chronic Obstructive Pulmonary Disease (COPD) GASTROINTESTINAL: Positive Gastrointestinal Disorders and Ulcer GENITOURINARY: Positive Genitourinary Disorders; Negative Renal Disease ENDOCRINE: Negative Diabetes Mellitus Type 1 or Diabetes Mellitus Type 2 PSYCHO/SOCIAL: Positive Bipolar Disorder Family History FAMILY HISTORY: Negative Family Cardiac Disorders Social History SMOKING STATUS: Current every day smoker SUBSTANCE USE: marijuana ED Exam Narrative Physical exam: Generally patient is alert in no obvious distress with poor hygiene, heart is regular rate and rhythm, lungs good auscultation equal bilaterally, abdomen soft bowel sounds present nondistended nontender, genital exam shows a circumcised penis. No erythema to the scrotum. Mild tenderness mild enlargement around the left testicle. No high riding testicle. Course Quality Measures none Orders Category Date Time Status US scrotum Stat Exams 12/15/24 21:16 Completed CBC Stat Lab 12/15/24 21:23 Completed CMP [Comprehensive Metabolic Panel] Stat Lab 12/15/24 21:23 Completed Urinalysis Stat Lab 12/15/24 21:53 Completed Vital Signs Vital signs: Vital Signs Temperature 98.6 F 12/15/24 21:13 Pulse Rate 80 12/15/24 21:13 Respiratory Rate 18 12/15/24 21:13 Blood Pressure 100/70 12/15/24 21:13 Pulse Oximetry (%) 95 12/15/24 21:13 Oxygen Delivery Method Room Air 12/15/24 21:13 Urogenital - Male MDM Narrative MDM Narrative:: Scribe Attestation: 12/15/24 - Daina Scott, florian scribing for and in the presence of Dr. Kruse. Doppler ultrasound of the testicles ordered prior to my evaluation showed a left-sided varicocele. Urine shows no infection. Patient was told to wear a jockstrap for support. No other treatment is needed at this time. Patient data External records reviewed:: [facility] previous records (Per chart review, patient has been seen here multiple times over the last few days for the same complaint.) Clinical information provided by:: patient Social determinants that could affect healthcare access:: mental health Patient has the following chronic illnesses:: bipolar disorder, HTN How is presenting disease/condition affected by chronic disease/condition?: uneffected by Evaluation data The following diagnostics were reviewed and interpreted by me:: lab results and radiology exam(s) Lab and/or radiology exams considered but not ordered:: none Interpretation Summary: [facility] Report Signed Patient: YARA MCDONALD [facility]. Record#: [id number] Birthdate: 1980 Age/Sex: 44 / M Location: [facility] Attending Dr: Ordering Physician: Shante Zimmer Date of Service: 12/15/24 Procedure(s): US scrotum Accession Number(s): [id number] cc: Brian Fuentes MD; NO PRIMARY/FAMILY,PHYSICIAN; Shante Zimmer~ Examination: Testicular sonography complete TECHNIQUE: Lord scale sonographic images testes, assessment arterial and portal venous outflow Doppler spectrum analysis carpal analysis Date and time: December 15, 2024 2216 hours, comparison December 11, 2024 INDICATIONS: Left scrotal pain beginning 5 days ago FINDINGS: Right testis 4.7 cm epididymis not seen Arterial flow testicle. No testicular mass Left testis 4.7 cm epididymis 14 mm Arterial flow testicle. No testicular Mass. Moderate varicocele Minimal hydrocele IMPRESSION: No testicular torsion or testicular mass Moderate left varicocele Dictated By: Brian Fuentes MD Signed By: <Electronically signed by Brian Fuentes MD in OV> 12/15/24 1914 Medications / Prescriptions Medications or Prescriptions considered but not ordered:: none Medication administrations:: none Consultations Consultation(s) initiated? (list below): No Diagnosis Urogenital Male Differential Diagnosis: epididymitis and other (varicocele, testicular torsion) Most likely diagnosis given after review of the tests above:: see clinical impression below Admission Indicated Admission indicated?: not indicated Explain why admission is indicated or not indicated:: With no condition needing emergent intervention, there was no indication for admission. Admission Request Was there a request for admission?: No Disposition Plan Disposition Plan: Discharge Discharge Attestation Discharge Attestation: The patient and all family members were given an opportunity to ask questions and understood the discharge instructions. Discharge instructions specifically effects, indications for sooner follow up or return to the emergency department, and the expected course of current diagnosis. Patient condition: Stable Discharge Plan Plan Patient Disposition: HOME (Self Care) Prescriptions/Referrals Prescriptions/Med Rec: No Action quetiapine [Seroquel] 50 mg Tablet 50 mg PO HS azithromycin 500 mg tablet See Rx Instructions .ROUTE .COMPLEX Qty: 6 0RF Rx Instructions: take 500 mg today (day 1), then 250 mg for 4 days (days 2-5) acetaminophen 325 mg capsule 650 mg PO Q8HR PRN (Reason: pain) Qty: 30 0RF acetaminophen 500 mg capsule 1,000 mg PO Q8HR PRN (Reason: pain) Qty: 30 0RF mupirocin 2 % ointment 1 applic topical BID Qty: 15 0RF acetaminophen [Acetaminophen Pain Relief] 500 mg tablet 500 mg PO QID PRN (Reason: fever or pain) Qty: 30 0RF divalproex 500 mg tablet extended release 24 hr 2,000 mg PO DAILY Patient Comments: TAKE 4 TABLETS BY MOUTH AT BEDTIME FOR FOURTEEN DAYS acetaminophen [Tylenol Extra Strength] 500 mg tablet 1,000 mg PO Q6H PRN (Reason: pain) Qty: 30 0RF acetaminophen 500 mg tablet 1,000 mg PO Q8HR PRN (Reason: pain) Qty: 30 0RF acetaminophen 500 mg capsule 1,000 mg PO Q8HR PRN (Reason: pain) Qty: 30 0RF bacitracin 500 unit/gram ointment 1 applic topical TID Qty: 28 0RF Referrals: No Primary/Family,Physician [Primary Care Provider] - In 1 week Problem List Clinical Impression: Left varicocele Patient/Caregiver Discharge Instructions Education Materials: ED Varicocele Additional Instructions: Wear a jockstrap for testicular support. Print Language: Frisian Stand Alone Forms: [facility] Award Info., Patient Portal Info Letter
== END 2024-12-15 23:53 | disposition home or self-care (01) ==
PROVIDERS: Nurse Practitioner Family; Emergency Provider Emergency Medicine
DX: I86.1 Scrotal varices (principal)
CPT/HCPCS: 36415; 76870; 80053; 81001; 85025; 99283

== ENCOUNTER 2024-12-16 18:50 | Emergency (ER) | payer MEDICAID, SELFPAY ==
[2024-12-16 20:02] VITALS: BP 115/62; PULSE 85; RESP 17; TEMP 37.3; O2SAT 98
--- NOTE | 2024-12-17 00:04 | PC.NURSE ---
CALLED PT IN ER LOBBY AND OUTSIDE OF ER AND NO ANSWER
--- NOTE | 2024-12-17 00:15 | PC.NURSE ---
CALLED PT IN ER LOBBY AND OUTSIDE OF ER AND NO ANSWER
--- NOTE | 2024-12-17 00:32 | PC.NURSE ---
CALLED PT IN ER LOBBY AND OUTSIDE OF ER AND NO ANSWER
--- NOTE | 2025-01-03 03:15 | PD.EDRME ---
Rapid Medical Screening Exam RME Arrival date/time: 12/16/24 18:50 Chief Complaint: General Adult/Misc Complain Time Seen by Provider: 12/16/24 19:03 Vital signs: Vital Signs Temperature 99.2 F 12/16/24 20:02 Pulse Rate 85 12/16/24 20:02 Respiratory Rate 17 12/16/24 20:02 Blood Pressure 115/62 12/16/24 20:02 Pulse Oximetry (%) 98 12/16/24 20:02 Oxygen Delivery Method Room Air 12/16/24 20:02
== END 2024-12-17 00:34 | disposition left against medical advice (07) ==
PROVIDERS: Emergency Provider Emergency Medicine
DX: Z76.89 Persons encountering health services in other specified circumstances (principal); Z53.29 Procedure and treatment not carried out because of patient's decision for other reasons
CPT/HCPCS: 99281

== ENCOUNTER 2025-04-16 06:45 | Emergency (ER) | payer MEDICAID, SELFPAY ==
--- NOTE | 2025-04-16 06:47 | EDNOTE_ITS ---
ED Dental RME/HPI General Chief complaint: Dental/Oral/Throat Stated complaint: SORE THROAT Time Seen by Provider: 04/16/25 06:46 Arrival date/time: 04/16/25 06:45 44-year-old male presents to the Emergency Department today with complaints of 1 day history of sore throat patient ports no fever nausea or vomiting no headache dizziness weakness. Limitations: no limitations Related Data Home Medications ?Medication ?Instructions ?Recorded ?Confirmed quetiapine 50 mg tablet (Seroquel) 50 mg PO HS 0 06/20/22 divalproex 500 mg tablet,extended 2,000 mg PO DAILY 06/20/22 release 24 hr Previous Rx's ?Medication ?Instructions ?Recorded azithromycin 500 mg tablet See Rx Instructions PO .COM PLEX #6 08/11/22 tabs acetaminophen 500 mg tablet 1,000 mg (2 x 500 mg) PO Q 6H PRN 05/03/24 (Tylenol Extra Strength) pain #30 tabs acetaminophen 500 mg tablet 1,000 mg (2 x 500 mg) PO Q 8HR PRN 10/07/24 pain #30 tabs acetaminophen 500 mg capsule 1,000 mg (2 x 500 mg) PO Q8HR PRN 10/08/24 pain #30 caps acetaminophen 325 mg capsule 650 mg (2 x 325 mg) PO Q8 HR PRN 11/02/24 pain #30 caps acetaminophen 500 mg capsule 1,000 mg (2 x 500 mg) PO Q8HR PRN 11/16/24 pain #30 caps mupirocin 2 % topical ointment 1 applic topical BID #1 5 grams 11/27/24 bacitracin 500 unit/gram topical 1 applic topical TID #28 grams 12/03/24 ointment acetaminophen 500 mg tablet 500 mg PO QID PRN fever or pain 12/13/24 (Acetaminophen Pain Relief) #30 tabs acetaminophen 500 mg capsule 1,000 mg (2 x 500 mg) PO Q8HR PRN 04/16/25 pain #30 caps Allergies Allergy/AdvReac Type Severity Reaction Status Date / Time naproxen Allergy Severe HIVES Verified 12/16/24 18:53 ibuprofen AdvReac Severe ULCER Verified 12/16/24 18:53 BLEEDS tramadol HCl AdvReac Severe UNABLE TO Verified 12/16/24 18:53 URINATE Review of Systems Review of Systems Systems Reviewed: All systems reviewed, normal except as documented Constitutional Constitutional: Reports system reviewed and no additional complaints, except as documented, Denies fever(s) and Denies headache(s) Eyes Eyes: Reports system reviewed and no additional complaints, except as documented and Denies blurry vision ENT Ears, Nose, Mouth, and Throat: Reports system reviewed and no additional complaints, except as documented, Denies headache(s), Denies nasal congestion, Denies nasal discharge and Reports sore throat Cardiovascular Cardiovascular: Reports system reviewed and no additional complaints, except as documented, Denies chest pain and Denies dyspnea Respiratory Respiratory: Reports system reviewed and no additional complaints, except as documented, Denies chest congestion, Denies cough and Denies dyspnea Gastrointestinal Gastrointestinal: Reports system reviewed and no additional complaints, except as documented and Denies abdominal pain Integumentary/Breasts Skin/Breast: Reports system reviewed and no additional complaints, except as documented and Denies rash Neurologic Neurologic: Reports system reviewed and no additional complaints, except as documented, Reports as per HPI and Denies headache(s) Past Medical History Past Medical History NEUROLOGIC: Negative Neurological Disorders CARDIAC: Positive Hypertension; Negative Cardiac Disorders or Congestive Heart Failure RESPIRATORY: Negative Chronic Obstructive Pulmonary Disease (COPD) GASTROINTESTINAL: Positive Gastrointestinal Disorders and Ulcer GENITOURINARY: Positive Genitourinary Disorders; Negative Renal Disease ENDOCRINE: Negative Diabetes Mellitus Type 1 or Diabetes Mellitus Type 2 PSYCHO/SOCIAL: Positive Bipolar Disorder Family History FAMILY HISTORY: Negative Family Cardiac Disorders Social History SMOKING STATUS: Current every day smoker SUBSTANCE USE: marijuana ED Exam General Limitations: Present no limitations General appearance: Present alert and in no apparent distress Head Head exam: Present atraumatic, normocephalic and normal inspection Eye Eye exam: Present normal appearance, PERRL and EOMI ENT ENT exam: Present mucous membranes moist Expanded ENT Exam Throat exam: Present tonsillar erythema and tonsillomegaly; Absent tonsillar exudate, R peritonsillar mass or L peritonsillar mass Neck Neck exam: Present normal inspection, full ROM and trachea midline Chest Chest inspection: Present normal inspection and symmetric chest wall rise Respiratory Respiratory exam: Present normal lung sounds bilaterally Cardiovascular Cardiovascular exam: Present regular rate, normal rhythm and normal heart sounds Abdominal Exam Abdominal exam: Present soft and normal bowel sounds Extremities Exam Extremities exam: Present normal inspection and full ROM Back Exam Back exam: Present normal inspection and full ROM Neurological Exam Neurological exam: Present alert, oriented X3 and CN II-XII intact Psychiatric Psychiatric exam: Present normal affect and normal mood Skin Skin exam: Present warm, dry, intact and normal color Course Quality Measures none Orders Category Date Time Status Bedside STREP Test NOW Care 04/16/25 06:54 Completed Vital Signs Vital signs: Vital Signs Temperature 99.5 F 04/16/25 06:56 Pulse Rate 88 04/16/25 06:56 Respiratory Rate 18 04/16/25 06:56 Blood Pressure 124/80 04/16/25 06:56 Pulse Oximetry (%) 98 04/16/25 06:56 Oxygen Delivery Method Room Air 04/16/25 06:56 O2 saturation 98% room air within normal limits Dental / Oral MDM Narrative MDM Narrative:: 44-year-old male presents to the Emergency Department today with complaints of 1 day history of sore throat patient ports no fever nausea or vomiting no headache dizziness weakness. Clinically patient well-appearing does not appear look toxic no distress On exam patient is no trismus no hoarseness of voice no erythema I suspect patient has viral pharyngitis Patient check for strep which came back negative Patient discharged home in no distress to follow-up with primary care doctor in the next 24 to 48 hours and for any worsening symptoms to return to the ER immediately Patient data External records reviewed:: [facility] previous records Clinical information provided by:: patient Social determinants that could affect healthcare access:: none Patient has the following chronic illnesses:: None How is presenting disease/condition affected by chronic disease/condition?: no chronic disease Evaluation data The following diagnostics were reviewed and interpreted by me:: lab results Lab and/or radiology exams considered but not ordered:: Lab obtained Interpretation Summary: Reviewed by me Medications / Prescriptions Medications or Prescriptions considered but not ordered:: Given Medication administrations:: Given Consultations Consultation(s) initiated? (list below): No Diagnosis Dental Differential Diagnosis: other (Viral pharyngitis, streptococcal pharyngitis, URI) Most likely diagnosis given after review of the tests above:: Viral pharyngitis Admission Indicated Admission indicated?: not indicated Admission Request Was there a request for admission?: No Disposition Plan Disposition Plan: Discharge Discharge Attestation Discharge Attestation: The patient and all family members were given an opportunity to ask questions and understood the discharge instructions. Discharge instructions specifically effects, indications for sooner follow up or return to the emergency department, and the expected course of current diagnosis. Patient condition: Stable Discharge Plan Plan Patient Disposition: HOME (Self Care) Discharge Disposition comment: Stable Prescriptions/Referrals Prescriptions/Med Rec: New acetaminophen 500 mg capsule 1,000 mg PO Q8HR PRN (Reason: pain) Qty: 30 0RF No Action quetiapine [Seroquel] 50 mg Tablet 50 mg PO HS azithromycin 500 mg tablet See Rx Instructions .ROUTE .COMPLEX Qty: 6 0RF Rx Instructions: take 500 mg today (day 1), then 250 mg for 4 days (days 2-5) acetaminophen 325 mg capsule 650 mg PO Q8HR PRN (Reason: pain) Qty: 30 0RF acetaminophen 500 mg capsule 1,000 mg PO Q8HR PRN (Reason: pain) Qty: 30 0RF mupirocin 2 % ointment 1 applic topical BID Qty: 15 0RF acetaminophen [Acetaminophen Pain Relief] 500 mg tablet 500 mg PO QID PRN (Reason: fever or pain) Qty: 30 0RF divalproex 500 mg tablet extended release 24 hr 2,000 mg PO DAILY Patient Comments: TAKE 4 TABLETS BY MOUTH AT BEDTIME FOR FOURTEEN DAYS acetaminophen [Tylenol Extra Strength] 500 mg tablet 1,000 mg PO Q6H PRN (Reason: pain) Qty: 30 0RF acetaminophen 500 mg tablet 1,000 mg PO Q8HR PRN (Reason: pain) Qty: 30 0RF acetaminophen 500 mg capsule 1,000 mg PO Q8HR PRN (Reason: pain) Qty: 30 0RF bacitracin 500 unit/gram ointment 1 applic topical TID Qty: 28 0RF Problem List Clinical Impression: Acute viral pharyngitis Patient/Caregiver Discharge Instructions Education Materials: Self-Care for Sore Throats Additional Instructions: Please follow up with your primary care doctor in the next 24-48hrs for any worsening symptoms return here immediately Print Language: Djiboutian Stand Alone Forms: [facility]ola Award Info., Patient Portal Info Letter PA/NET FRONT END DEVELOPER Supervising Physician PA/NET FRONT END DEVELOPER Supervising Physician:
[2025-04-16 06:56] VITALS: BP 124/80; PULSE 88; RESP 18; TEMP 37.5; O2SAT 98; BMI 21.2
== END 2025-04-16 07:40 | disposition home or self-care (01) ==
LOC: SERX 07:41
PROVIDERS: Emergency Provider Nurse Practitioner Primary Care; PCP Nurse Practitioner Family
DX: J02.8 Acute pharyngitis due to other specified organisms (principal); B97.89 Other viral agents as the cause of diseases classified elsewhere; F17.210 Nicotine dependence, cigarettes, uncomplicated
CPT/HCPCS: 87651; 99281

== ENCOUNTER 2025-04-19 15:58 | Emergency (ER) | payer MEDICAID, SELFPAY ==
[2025-04-19 15:58] VITALS: BMI 21.9
--- NOTE | 2025-04-19 16:52 | PC.NURSE ---
CALLED FOR PT FROM LOBBY/OUTSIDE, NO ANSWERX1@ [phone]
--- NOTE | 2025-04-19 17:02 | PC.NURSE ---
CALLED FOR PT FROM LOBBY/OUTSIDE, NO ANSWERX2@ [phone]
--- NOTE | 2025-04-19 17:25 | PC.NURSE ---
CALLED FOR PT FROM LOBBY/OUTSIDE, NO ANSWERX3@ [phone]
--- NOTE | 2025-04-19 17:32 | PC.NURSE ---
@1652 - PT CALLED FROM ED LOBBY & ED MAIN ENTRANCE AT THIS TIME; NO ANSWER. @1700 - PT CALLED FROM ED LOBBY & ED MAIN ENTRANCE FOR 2ND CALL AT THIS TIME; NO ANSWER. @1722 - PT CALLED FROM ED LOBBY & ED MAIN ENTRANCE FOR LAST CALL AT THIS TIME; NO ANSWER. PT ELOPED.
== END 2025-04-19 17:33 | disposition left against medical advice (07) ==
PROVIDERS: Emergency Provider Emergency Medicine
DX: Z53.21 Procedure and treatment not carried out due to patient leaving prior to being seen by health care provider (principal)
CPT/HCPCS: 99281